=== PATIENT | male | born 1985 | race Caucasian/White ===

== ENCOUNTER → 2016-05-02 | Outpatient (CLI) | payer MEDICAID ==
[~2016-05-02] MED LIST: ATIV1TAB7 PO; PAXI20TA3 PO; PROT1TAB2 PO; PROZ10CA7 PO; RISP1TAB41 PO; TRAZ100T4 PO; TRIL1TAB PO; cogentin PO
== END ==
LOC: M OUTALCOH 08:27
PROVIDERS: ATTEND Psychiatry & Neurology Psychiatry
DX: F11.20 Opioid dependence, uncomplicated (principal); F12.10 Cannabis abuse, uncomplicated

== ENCOUNTER 2016-05-20 21:43 | Emergency (ER) | payer MEDICAID, OTHER, SELFPAY ==
[2016-05-20] MEDS ORDERED: AUGMENTIN 875 MG TAB As Ordered ONE (23:30)
[2016-05-20] MEDS ORDERED: NORCO, ANEXSIA 5/325MG TABLET (HYDROcodone/ACETAMINOPHEN) As Ordered ONE (23:30)
[2016-05-20] MEDS ORDERED: IBUPROFEN 800 MG TAB As Ordered ONE (23:31)
--- NOTE | 2016-05-20 23:40 | EDDOCDS ---
Nurse's Notes [facility] Name: Rakesh Ramírez Age: 30 yrs Sex: Male : 1985 Arrival Date: 05/20/2016 Time: 21:43 Bed TR1 Private MD: No Pcp Diagnosis: Dental caries;Fever, unspecified Presentation: 05/20 21:51 Presenting complaint: Patient states: bilateral jaw pain, more so on right, for a few jjr weeks, attempting to schedule appt with oral surgeon. Adult Sepsis Screening: The patient does not have new or worsening altered mentation. Patient's respiratory rate is less than 22. Systolic blood pressure is greater than 100. Patient has a qSOFA score of 0- Negative Sepsis Screen. Suicide/Homicide risk assessment- the patient denies having any suicidal and/or homicidal ideations and does not present with any other emotional, behavioral or mental health complaints. Status: Patient is not a food services director or dependent. Transition of care: patient was not received from another setting of care. 21:51 Acuity: NIKOS Level 4 jjr 21:51 Method Of Arrival: Walkin/Carried/Asstd jjr Triage Assessment: 21:53 General: Appears in no apparent distress. Pain: Location: right jaw and left jaw. HIV jjr screening NA for this visit Offered previously. EENT: Reports pain in right jaw and left jaw. Historical: - Allergies: no known allergies; - Home Meds: 1. Remeron 30 mg Oral tab 1 tab once daily - PMHx: Anxiety; Depression; - PSHx: none; - Social history: Smoking status: Patient uses tobacco products, current every day smoker. No barriers to communication noted, The patient speaks fluent Mohawk. - Family history: Not pertinent. - : The pt / caregiver states he / she is not on anticoagulants. Home medication list is obtained from the patient. - Exposure Risk Screening:: None identified. Screenin:37 Screening information is obtained from the patient. Fall risk: No risks identified. rw1 Assistance ADL's: requires no assistance with activities of daily living. Abuse/DV Screen: The patient / caregiver reports he/she is: not in a situation that causes fear, pain or injury. Nutritional screening: No deficits noted. Advance Directives: Currently, there is no health care proxy. home support is adequate. Assessment: 23:37 Reassessment: Patient appears in no apparent distress at this time. Patient states rw1 feeling better. Vital Signs: 21:45 BP 136 / 81; Pulse 104; Resp 18 S; Temp 100.1(O); Pulse Ox 95% ; Weight 79.38 kg (R); gr2 Height 5 ft. 10 in. (177.80 cm) (R); Pain 6/10; 23:31 BP 145 / 78; Pulse 89; Resp 18; Temp 99.0(TE); Pulse Ox 96% on R/A; Pain 6/10; kb5 21:45 Body Mass Index 25.11 (79.38 kg, 177.80 cm) gr2 Vitals: 21:45 Log In Time: May 20, 2016 at 21:45. gr2 ED Course: 21:44 Patient visited by Seng Garcia. gr2 21:44 No Pcp is Private Physician. gr2 21:44 Patient moved to Waiting gr2 21:47 Patient visited by Seng Garcia. gr2 21:47 Patient moved to Pre RCE gr2 21:53 Triage Initiated jjr 23:16 Bogdan Vidal PA is PHCP. mo1 23:16 Rafat Davison DO is Attending Physician. mo1 23:16 Patient moved to Triage 3 ko2 23:18 Patient visited by Bogdan Vidal PA. mo1 23:25 [facility] is Referral Physician. mo1 23:26 Pankaj Mosley is Referral Physician. mo1 23:32 Patient visited by Geremias Gupta PCA. kb5 23:35 Patient moved to TR1 ko2 23:37 The patient / caregiver is instructed regarding the plan of care and ED course. rw1 23:37 No IV's were initiated during this patient's visit. No procedures done that require rw1 assistance. Administered Medications: 23:23 CANCELLED (Other Intervention Used): Amoxicillin 500 mg PO once mo1 23:36 Drug: HYDROcodone-acetaminophen 1 tabs [hydrocodone 5 mg-acetaminophen 325 mg tablet (1 rw1 tabs)] Route: PO; 23:37 Follow up: Response: Pt left department before re-evaluation is appropriate rw1 23:36 Drug: Amoxicillin-Clavulanate 1 tabs [amoxicillin 875 mg-potassium clavulanate 125 mg rw1 tablet (1 tabs)] Route: PO; 23:37 Follow up: Response: Pt left department before re-evaluation is appropriate rw1 23:36 Drug: Ibuprofen 800 mg [ibuprofen 800 mg tablet (1 tabs)] Route: PO; rw1 23:36 Follow up: Response: Pt left department before re-evaluation is appropriate rw1 Order Results: There are currently no results for this order. Outcome: 23:26 Discharge ordered by Provider. mo1 23:37 Discharge Assessment: Patient awake, alert and oriented x 3. No cognitive and/or rw1 functional deficits noted. Patient verbalized understanding of disposition instructions. patient administered narcotics - yes. Pt provided with safe discharge. The following High Risk Discharge criteria are identified: None. Discharged to home ambulatory, with significant other. Condition: stable. Discharge instructions given to patient, Instructed on discharge instructions, follow up and referral plans. medication usage, no driving heavy equipment, Demonstrated understanding of instructions, medications, Pt was receptive of discharge instructions/ teaching. Prescriptions given X 2. No special radiology studies were completed. Property sent home with patient. 23:39 Patient left the ED. rw1 Signatures: Denny Fernandez,INTERNAL REVENUE SERVICE AGENT INTERNAL REVENUE SERVICE AGENT rw1 Geremias Gupta, COMMISSIONS ANALYST COMMISSIONS ANALYST kb5 Alona Garcia, RN RN Seng Abdi gr2 Bogdan Vidal PA PA mo1 Ning Johnson,RN RN ko2 MTDD
--- NOTE | 2016-05-20 23:40 | EDDOCDS ---
Physician Documentation [facility] Name: Rakesh Ramírez Age: 30 yrs Sex: Male : 1985 Arrival Date: 05/20/2016 Time: 21:43 Bed TR1 Private MD: No Pcp Disposition: 05/20/16 23:26 Discharged to Home/Self Care. Impression: Dental caries, Fever, unspecified. - Condition is Stable. - Discharge Instructions: Dental Pain. - Prescriptions for Augmentin 875- 125 mg Oral Tablet - take 1 tablet by ORAL route every 12 hours for 10 days; 20 tablet. Ibuprofen 800 mg Oral Tablet - take 1 tablet by ORAL route every 8 hours As needed take with food; 30 tablet. - Medication Reconciliation, Local Pharmacy Hours form. - [facility]; When: Call to arrange an appointment; Reason: Recheck today's complaints, Continuance of care. Follow up: [facility]; When: Call to arrange an appointment; Reason: Recheck today's complaints, Continuance of care. - Problem is new. - Symptoms are unchanged. Historical: - Allergies: no known allergies; - Home Meds: 1. Remeron 30 mg Oral tab 1 tab once daily - PMHx: Anxiety; Depression; - PSHx: none; - Social history: Smoking status: Patient uses tobacco products, current every day smoker. No barriers to communication noted, The patient speaks fluent Welsh. - Family history: Not pertinent. - : The pt / caregiver states he / she is not on anticoagulants. Home medication list is obtained from the patient. - Exposure Risk Screening:: None identified. Vital Signs: 05/20 21:45 BP 136 / 81; Pulse 104; Resp 18 S; Temp 100.1(O); Pulse Ox 95% ; Weight 79.38 kg / 175 gr2 lbs (R); Height 5 ft. 10 in. (177.80 cm) (R); Pain 6/10; 23:31 BP 145 / 78; Pulse 89; Resp 18; Temp 99.0(TE); Pulse Ox 96% on R/A; Pain 6/10; kb5 21:45 Body Mass Index 25.11 (79.38 kg, 177.80 cm) gr2 MDM: 23:23 HYDROcodone-acetaminophen 5 mg-325 mg 1 tabs PO once ordered. mo1 23:23 Amoxicillin-Clavulanate 875 mg 1 tabs PO once ordered. mo1 23:23 Ibuprofen 800 mg PO once ordered. mo1 23:38 Financial registration complete. hs2 Administered Medications: 23:23 CANCELLED (Other Intervention Used): Amoxicillin 500 mg PO once mo1 23:36 Drug: HYDROcodone-acetaminophen 1 tabs [hydrocodone 5 mg-acetaminophen 325 mg tablet (1 rw1 tabs)] Route: PO; 23:37 Follow up: Response: Pt left department before re-evaluation is appropriate rw1 23:36 Drug: Amoxicillin-Clavulanate 1 tabs [amoxicillin 875 mg-potassium clavulanate 125 mg rw1 tablet (1 tabs)] Route: PO; 23:37 Follow up: Response: Pt left department before re-evaluation is appropriate rw1 23:36 Drug: Ibuprofen 800 mg [ibuprofen 800 mg tablet (1 tabs)] Route: PO; rw1 23:36 Follow up: Response: Pt left department before re-evaluation is appropriate rw1 Signatures: Denny Fernandez LPN EXTRUDER OPERATOR HELPER rw1 Alona Garcia, RN RN shraddhajr Bogdan Vidal, PA PA mo1 Verena Rodarte, Reg Reg hs2 The chart was reviewed and I authenticate all verbal orders and agree with the evaluation and treatment provided.Corrections: (The following items were deleted from the chart) 23:23 23:23 Amoxicillin 500 mg PO once ordered. mo1 mo1 MTDD
--- NOTE | 2016-05-23 00:40 | EDDOCDS ---
Physician Documentation [facility] Name: Rakesh Ramírez Age: 30 yrs Sex: Male : 1985 Arrival Date: 05/20/2016 Time: 21:43 Bed TR1 Private MD: No Pcp Disposition: 05/20/16 23:26 Discharged to Home/Self Care. Impression: Dental caries, Fever, unspecified. - Condition is Stable. - Discharge Instructions: Dental Pain. - Prescriptions for Augmentin 875- 125 mg Oral Tablet - take 1 tablet by ORAL route every 12 hours for 10 days; 20 tablet. Ibuprofen 800 mg Oral Tablet - take 1 tablet by ORAL route every 8 hours As needed take with food; 30 tablet. - Medication Reconciliation, Local Pharmacy Hours form. - [facility]; When: Call to arrange an appointment; Reason: Recheck today's complaints, Continuance of care. Follow up: [facility]; When: Call to arrange an appointment; Reason: Recheck today's complaints, Continuance of care. - Problem is new. - Symptoms are unchanged. Historical: - Allergies: no known allergies; - Home Meds: 1. Remeron 30 mg Oral tab 1 tab once daily - PMHx: Anxiety; Depression; - PSHx: none; - Social history: Smoking status: Patient uses tobacco products, current every day smoker. No barriers to communication noted, The patient speaks fluent Mongolian. - Family history: Not pertinent. - : The pt / caregiver states he / she is not on anticoagulants. Home medication list is obtained from the patient. - Exposure Risk Screening:: None identified. Vital Signs: 05/20 21:45 BP 136 / 81; Pulse 104; Resp 18 S; Temp 100.1(O); Pulse Ox 95% ; Weight 79.38 kg / 175 gr2 lbs (R); Height 5 ft. 10 in. (177.80 cm) (R); Pain 6/10; 23:31 BP 145 / 78; Pulse 89; Resp 18; Temp 99.0(TE); Pulse Ox 96% on R/A; Pain 6/10; kb5 21:45 Body Mass Index 25.11 (79.38 kg, 177.80 cm) gr2 MDM: 23:23 HYDROcodone-acetaminophen 5 mg-325 mg 1 tabs PO once ordered. mo1 23:23 Amoxicillin-Clavulanate 875 mg 1 tabs PO once ordered. mo1 23:23 Ibuprofen 800 mg PO once ordered. mo1 23:38 Financial registration complete. hs2 05/21 01:01 [facility] Payment Agreement was scanned into [employer] and attached to record. pm4 09:43 T-Sheet-- Draft Copy was scanned into [employer] and attached to record. gb Administered Medications: 05/20 23:23 CANCELLED (Other Intervention Used): Amoxicillin 500 mg PO once mo1 23:36 Drug: HYDROcodone-acetaminophen 1 tabs [hydrocodone 5 mg-acetaminophen 325 mg tablet (1 rw1 tabs)] Route: PO; 23:37 Follow up: Response: Pt left department before re-evaluation is appropriate rw1 23:36 Drug: Amoxicillin-Clavulanate 1 tabs [amoxicillin 875 mg-potassium clavulanate 125 mg rw1 tablet (1 tabs)] Route: PO; 23:37 Follow up: Response: Pt left department before re-evaluation is appropriate rw1 23:36 Drug: Ibuprofen 800 mg [ibuprofen 800 mg tablet (1 tabs)] Route: PO; rw1 23:36 Follow up: Response: Pt left department before re-evaluation is appropriate rw1 Signatures: Reba Sharma, Reg Reg gb Denny Fernandez,SKI MAKER WOOD SKI MAKER WOOD rw1 Alona Garcia, RN RN Bogdan Urias PA PA mo1 Verena Rodarte, Reg Reg hs2 Shilo Adhikari, Reg Reg pm4 The chart was reviewed and I authenticate all verbal orders and agree with the evaluation and treatment provided.Corrections: (The following items were deleted from the chart) 23:23 23:23 Amoxicillin 500 mg PO once ordered. mo1 mo1 Attachments: 05/21 01:01 [facility] Payment Agreement pm4 09:43 T-Sheet-- Draft Copy gb Chart Complete MTDD
--- NOTE | 2016-05-23 00:40 | EDDOCDS ---
Physician Documentation [facility] Name: Rakesh Ramírez Age: 30 yrs Sex: Male : 1985 Arrival Date: 05/20/2016 Time: 21:43 Bed TR1 Private MD: No Pcp Disposition: 05/20/16 23:26 Discharged to Home/Self Care. Impression: Dental caries, Fever, unspecified. - Condition is Stable. - Discharge Instructions: Dental Pain. - Prescriptions for Augmentin 875- 125 mg Oral Tablet - take 1 tablet by ORAL route every 12 hours for 10 days; 20 tablet. Ibuprofen 800 mg Oral Tablet - take 1 tablet by ORAL route every 8 hours As needed take with food; 30 tablet. - Medication Reconciliation, Local Pharmacy Hours form. - Follow up: [facility]; When: Call to arrange an appointment; Reason: Recheck today's complaints, Continuance of care. Follow up: [facility]; When: Call to arrange an appointment; Reason: Recheck today's complaints, Continuance of care. - Problem is new. - Symptoms are unchanged. Historical: - Allergies: no known allergies; - Home Meds: 1. Remeron 30 mg Oral tab 1 tab once daily - PMHx: Anxiety; Depression; - PSHx: none; - Social history: Smoking status: Patient uses tobacco products, current every day smoker. No barriers to communication noted, The patient speaks fluent Icelandic. - Family history: Not pertinent. - : The pt / caregiver states he / she is not on anticoagulants. Home medication list is obtained from the patient. - Exposure Risk Screening:: None identified. Vital Signs: 05/20 21:45 BP 136 / 81; Pulse 104; Resp 18 S; Temp 100.1(O); Pulse Ox 95% ; Weight 79.38 kg / 175 gr2 lbs (R); Height 5 ft. 10 in. (177.80 cm) (R); Pain 6/10; 23:31 BP 145 / 78; Pulse 89; Resp 18; Temp 99.0(TE); Pulse Ox 96% on R/A; Pain 6/10; kb5 21:45 Body Mass Index 25.11 (79.38 kg, 177.80 cm) gr2 MDM: 23:23 HYDROcodone-acetaminophen 5 mg-325 mg 1 tabs PO once ordered. mo1 23:23 Amoxicillin-Clavulanate 875 mg 1 tabs PO once ordered. mo1 23:23 Ibuprofen 800 mg PO once ordered. mo1 23:38 Financial registration complete. hs2 05/21 01:01 [facility] Payment Agreement was scanned into [employer] and attached to record. pm4 09:43 T-Sheet-- Draft Copy was scanned into [employer] and attached to record. gb Administered Medications: 05/20 23:23 CANCELLED (Other Intervention Used): Amoxicillin 500 mg PO once mo1 23:36 Drug: HYDROcodone-acetaminophen 1 tabs [hydrocodone 5 mg-acetaminophen 325 mg tablet (1 rw1 tabs)] Route: PO; 23:37 Follow up: Response: Pt left department before re-evaluation is appropriate rw1 23:36 Drug: Amoxicillin-Clavulanate 1 tabs [amoxicillin 875 mg-potassium clavulanate 125 mg rw1 tablet (1 tabs)] Route: PO; 23:37 Follow up: Response: Pt left department before re-evaluation is appropriate rw1 23:36 Drug: Ibuprofen 800 mg [ibuprofen 800 mg tablet (1 tabs)] Route: PO; rw1 23:36 Follow up: Response: Pt left department before re-evaluation is appropriate rw1 Signatures: Reba Sharma, Reg Reg gb Denny Fernandez,AMMONIUM SULFATE OPERATOR AMMONIUM SULFATE OPERATOR rw1 Alona Garcia, RN RN Bogdan Urias PA PA mo1 Verena Rodarte, Reg Reg hs2 Shilo Adhikari, Reg Reg pm4 The chart was reviewed and I authenticate all verbal orders and agree with the evaluation and treatment provided.Corrections: (The following items were deleted from the chart) 23:23 23:23 Amoxicillin 500 mg PO once ordered. mo1 mo1 Attachments: 05/21 01:01 [facility] Payment Agreement pm4 09:43 T-Sheet-- Draft Copy gb Chart Complete MTDD
--- NOTE | 2016-05-23 00:40 | EDDOCDS ---
Nurse's Notes [facility] Name: Rakesh Ramírez Age: 30 yrs Sex: Male : 1985 Arrival Date: 05/20/2016 Time: 21:43 Bed TR1 Private MD: No Pcp Diagnosis: Dental caries;Fever, unspecified Presentation: 05/20 21:51 Presenting complaint: Patient states: bilateral jaw pain, more so on right, for a few jjr weeks, attempting to schedule appt with oral surgeon. Adult Sepsis Screening: The patient does not have new or worsening altered mentation. Patient's respiratory rate is less than 22. Systolic blood pressure is greater than 100. Patient has a qSOFA score of 0- Negative Sepsis Screen. Suicide/Homicide risk assessment- the patient denies having any suicidal and/or homicidal ideations and does not present with any other emotional, behavioral or mental health complaints. Status: Patient is not a dental equipment installer and servicer or dependent. Transition of care: patient was not received from another setting of care. 21:51 Acuity: NIKOS Level 4 jjr 21:51 Method Of Arrival: Walkin/Carried/Asstd jjr Triage Assessment: 21:53 General: Appears in no apparent distress. Pain: Location: right jaw and left jaw. HIV jjr screening NA for this visit Offered previously. EENT: Reports pain in right jaw and left jaw. Historical: - Allergies: no known allergies; - Home Meds: 1. Remeron 30 mg Oral tab 1 tab once daily - PMHx: Anxiety; Depression; - PSHx: none; - Social history: Smoking status: Patient uses tobacco products, current every day smoker. No barriers to communication noted, The patient speaks fluent Macedonian. - Family history: Not pertinent. - : The pt / caregiver states he / she is not on anticoagulants. Home medication list is obtained from the patient. - Exposure Risk Screening:: None identified. Screenin:37 Screening information is obtained from the patient. Fall risk: No risks identified. rw1 Assistance ADL's: requires no assistance with activities of daily living. Abuse/DV Screen: The patient / caregiver reports he/she is: not in a situation that causes fear, pain or injury. Nutritional screening: No deficits noted. Advance Directives: Currently, there is no health care proxy. home support is adequate. Assessment: 23:37 Reassessment: Patient appears in no apparent distress at this time. Patient states rw1 feeling better. Vital Signs: 21:45 BP 136 / 81; Pulse 104; Resp 18 S; Temp 100.1(O); Pulse Ox 95% ; Weight 79.38 kg (R); gr2 Height 5 ft. 10 in. (177.80 cm) (R); Pain 6/10; 23:31 BP 145 / 78; Pulse 89; Resp 18; Temp 99.0(TE); Pulse Ox 96% on R/A; Pain 6/10; kb5 21:45 Body Mass Index 25.11 (79.38 kg, 177.80 cm) gr2 Vitals: 21:45 Log In Time: May 20, 2016 at 21:45. gr2 ED Course: 21:44 Patient visited by Seng Garcia. gr2 21:44 No Pcp is Private Physician. gr2 21:44 Patient moved to Waiting gr2 21:47 Patient visited by Seng Garcia. gr2 21:47 Patient moved to Pre RCE gr2 21:53 Triage Initiated jjr 23:16 Bogdan Vidal PA is PHCP. mo1 23:16 Rafat Davison DO is Attending Physician. mo1 23:16 Patient moved to Triage 3 ko2 23:18 Patient visited by Bogdan Vidal PA. mo1 23:25 [facility] is Referral Physician. mo1 23:26 Pankaj Mosley is Referral Physician. mo1 23:32 Patient visited by Geremias Gupta PCA. kb5 23:35 Patient moved to TR1 ko2 23:37 The patient / caregiver is instructed regarding the plan of care and ED course. rw1 23:37 No IV's were initiated during this patient's visit. No procedures done that require rw1 assistance. 05/21 01:01 [facility] [place] Agreement was scanned into [employer] and attached to record. pm4 09:43 T-Sheet-- Draft Copy was scanned into [employer] and attached to record. gb Administered Medications: 05/20 23:23 CANCELLED (Other Intervention Used): Amoxicillin 500 mg PO once mo1 23:36 Drug: HYDROcodone-acetaminophen 1 tabs [hydrocodone 5 mg-acetaminophen 325 mg tablet (1 rw1 tabs)] Route: PO; 23:37 Follow up: Response: Pt left department before re-evaluation is appropriate rw1 23:36 Drug: Amoxicillin-Clavulanate 1 tabs [amoxicillin 875 mg-potassium clavulanate 125 mg rw1 tablet (1 tabs)] Route: PO; 23:37 Follow up: Response: Pt left department before re-evaluation is appropriate rw1 23:36 Drug: Ibuprofen 800 mg [ibuprofen 800 mg tablet (1 tabs)] Route: PO; rw1 23:36 Follow up: Response: Pt left department before re-evaluation is appropriate rw1 Order Results: There are currently no results for this order. Outcome: 23:26 Discharge ordered by Provider. mo1 23:37 Discharge Assessment: Patient awake, alert and oriented x 3. No cognitive and/or rw1 functional deficits noted. Patient verbalized understanding of disposition instructions. patient administered narcotics - yes. Pt provided with safe discharge. The following High Risk Discharge criteria are identified: None. Discharged to home ambulatory, with significant other. Condition: stable. Discharge instructions given to patient, Instructed on discharge instructions, follow up and referral plans. medication usage, no driving heavy equipment, Demonstrated understanding of instructions, medications, Pt was receptive of discharge instructions/ teaching. Prescriptions given X 2. No special radiology studies were completed. Property sent home with patient. 23:39 Patient left the ED. rw1 Signatures: Reba Sharma, Reg Reg gb Jim,Denny,TELEPHONE ANSWERING SERVICE OPERATOR TELEPHONE ANSWERING SERVICE OPERATOR rw1 Geremias Gupta, MADHURI FIBER OPTICS ENGINEER kb5 Alona Garcia, RN Seng López gr2 Bogdan Vidal PA PA mo1 Ning Johnson RN RN ko2 Shilo Adhikari, Reg Reg pm4 Chart Complete MTDD
== END 2016-05-20 23:39 | disposition home or self-care (01) ==
LOC: M ED 21:43
DX: K02.9 Dental caries, unspecified (principal); R68.84 Jaw pain; F41.9 Anxiety disorder, unspecified; F32.9 Major depressive disorder, single episode, unspecified; Z79.899 Other long term (current) drug therapy; F17.210 Nicotine dependence, cigarettes, uncomplicated

== ENCOUNTER 2016-06-03 13:00 | Outpatient (RCR) | payer MEDICAID | END 2016-06-04 | LOC: M OUTALCOH 13:00 | PROVIDERS: ATTEND Psychiatry & Neurology Psychiatry | DX: F11.20 Opioid dependence, uncomplicated (principal); F12.10 Cannabis abuse, uncomplicated; F17.200 Nicotine dependence, unspecified, uncomplicated ==

== ENCOUNTER 2016-07-03 15:00 | Outpatient (RCR) | payer MEDICAID, SELFPAY | END 2016-07-05 | LOC: M OUTALCOH 15:00 | PROVIDERS: ATTEND Psychiatry & Neurology Psychiatry | DX: F12.10 Cannabis abuse, uncomplicated (principal); F11.20 Opioid dependence, uncomplicated; F17.200 Nicotine dependence, unspecified, uncomplicated ==

== ENCOUNTER 2016-08-02 13:00 | Outpatient (RCR) | payer MEDICAID, SELFPAY | END 2016-08-04 | LOC: M OUTALCOH 13:00 | PROVIDERS: ATTEND Psychiatry & Neurology Psychiatry | DX: F17.200 Nicotine dependence, unspecified, uncomplicated (principal); F11.20 Opioid dependence, uncomplicated; F12.10 Cannabis abuse, uncomplicated ==

== ENCOUNTER 2016-08-20 09:00 | Outpatient (RCR) | payer MEDICAID, SELFPAY | END 2016-09-04 | LOC: M OUTALCOH 09:00 | PROVIDERS: ATTEND Psychiatry & Neurology Psychiatry | DX: F17.200 Nicotine dependence, unspecified, uncomplicated (principal); F11.20 Opioid dependence, uncomplicated; F12.10 Cannabis abuse, uncomplicated ==

== ENCOUNTER 2016-09-06 09:11 | Observation (INO) | payer MEDICAID, OTHER ==
[~2016-09-06] VITALS: Ht 162.6 cm; Wt 69.0 kg
[2016-09-06] MEDS ORDERED: HALOPERIDOL 5 MG/ML VIAL (J1630) As Ordered ONE (09:23)
[2016-09-06] MEDS ORDERED: LORazepam 2 MG/ML VIAL (J2060) IM STA (09:23)
[2016-09-06] MEDS ORDERED: LORazepam 2 MG/ML VIAL (J2060) As Ordered ONE (09:24)
--- NOTE | 2016-09-06 10:00 | REP ---
CT Head without contrast HISTORY: Altered mental status COMPARISON: 06/15/2015 There is no intraparenchymal hemorrhage, acute infarct, mass or midline shift. The ventricular system is normal in appearance. There is no extra cerebral collection. There is no fracture. The visualized sinuses are clear. IMPRESSION: There is no intracranial lesion. Signed by Iban Nice MD 09/06/2016 09:51 A
[2016-09-06 10:05] LABS: BASO % 0.3 % (0.0-1.0); EOS # 0.2 K/mm3 (0.0-0.50); EOS % 1.4 % (0.0-3.0); LARGE UNSTAINED CELL # 0.4 K/mm3 (0.0-0.4); LARGE UNSTAINED CELL % 3.3 % (0.0-4.0); LYMPH # 2.6 K/mm3 (1.5-4.5); LYMPH % 21.5 % (24.0-44.0); MEAN CORPUSCULAR VOLUME 91.2 fl (80.0-96.0); MONO # 0.9 K/mm3 (0.0-0.8); MONO % 7.9 % (0.0-5.0); NEUTROPHILS # 7.8 K/mm3 (1.8-7.7); NEUTROPHILS % 65.8 % (36.0-66.0); PLATELET COUNT, AUTOMATED 272 k/mm3 (150-450); RED CELL DISTRIBUTION WIDTH 12.6 % (11.5-14.5); WHITE BLOOD COUNT 11.9 K/mm3 (4.0-10.0)
[2016-09-06 10:34] LABS: ALBUMIN 3.9 GM/DL (3.2-5.2); ALBUMIN/GLOBULIN RATIO 1.18 (1.00-1.93); ALKALINE PHOSPHATASE 70 U/L (45-117); ALT/SGPT 86 U/L (12-78); ANION GAP 18 MEQ/L (8-16); BILIRUBIN,DIRECT 0.2 MG/DL (0.0-0.2); BILIRUBIN,TOTAL 0.5 MG/DL (0.2-1.0); BLOOD UREA NITROGEN 8 MG/DL (7-18); CALCIUM LEVEL 9.5 MG/DL (8.5-10.1); CARBON DIOXIDE LEVEL 24 MEQ/L (21-32); CHLORIDE LEVEL 95 MEQ/L (98-107); CREATININE FOR GFR 1.36 MG/DL (0.70-1.30); GLOMERULAR FILTRATION RATE > 60.0 (>60); GLUCOSE, FASTING 119 MG/DL (70-105); POTASSIUM SERUM 3.4 MEQ/L (3.5-5.1); SODIUM LEVEL 137 MEQ/L (136-145); TOTAL PROTEIN 7.2 GM/DL (6.4-8.2)
[2016-09-06] MEDS ORDERED: LORazepam 2 MG/ML VIAL (J2060) IV STA (10:56)
[2016-09-06] MEDS ORDERED: NS 1,000 ML IV ONE (11:00)
[2016-09-06 11:18] LABS: AST/SGOT 32 U/L (15-37)
[2016-09-06] MEDS ORDERED: POTASSIUM CHLORIDE 10 MEQ SR TABLET PO ONE (13:00)
[2016-09-06 13:03] LABS: VENOUS BASE EXCESS 2.6 (-2.0-2.0); VENOUS O2 SATURATION 97.5 % (60.0-80.0); VENOUS PARTIAL PRESSURE CO2 46.4 mmHg (38.0-50.0); VENOUS PARTIAL PRESSURE O2 < 10.0 mmHg (30.0-50.0); VENOUS STANDARD HCO3 26.8 MEQ/L; VENOUS TOTAL CO2 29.5 MEQ/L (24.0-28.0)
[2016-09-06] MEDS ORDERED: LIDOCAINE W/EPINEPHRINE 1% 20ML VIAL SC ONE (13:30)
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
[2016-09-06] MEDS: NS 1,000 ML IV SCH ×2 (15:41→17:49)
[2016-09-06] MEDS: LACTULOSE 20 GM/30 ML SYRUP UD PO SCH ×2 (16:32→21:55)
[2016-09-06 17:30] VITALS: BP 114/64
--- NOTE | 2016-09-06 19:25 | REP ---
MR BRAIN WITHOUT CONTRAST: HISTORY: Seizure. COMPARISON: CT 09/06/2016. There are no areas of abnormal signal intensity in the brain. There is no intraparenchymal hemorrhage, infarct mass, or midline shift. The ventricular system is normal in appearance. There is no extracerebral collection. Mucosal thickening is present in the ethmoid sinuses. A retention cyst is present in the left maxillary sinus. IMPRESSION: There is no intracranial lesion. Signed by Iban Nice MD 09/06/2016 07:27 P
[2016-09-06 20:00] VITALS: BP 114/55
[2016-09-06] MEDS: IBUPROFEN 400 MG TAB PO PRN (21:55)
[2016-09-06 23:59] VITALS: BP 118/57
[2016-09-07] MEDS: NS 1,000 ML IV SCH ×4 (01:25→20:59)
[2016-09-07] MEDS: LORazepam 2 MG/ML VIAL (J2060) IV PRN ×6 (01:43→20:59)
[2016-09-07 04:00] VITALS: BP 106/61
[2016-09-07] MEDS: LACTULOSE 20 GM/30 ML SYRUP UD PO SCH ×3 (04:14→17:08)
[2016-09-07 04:19] LABS: BASO % 0.3 % (0.0-1.0); EOS # 0.2 K/mm3 (0.0-0.50); EOS % 2.4 % (0.0-3.0); LARGE UNSTAINED CELL # 0.4 K/mm3 (0.0-0.4); LARGE UNSTAINED CELL % 3.7 % (0.0-4.0); LYMPH # 2.7 K/mm3 (1.5-4.5); LYMPH % 28.7 % (24.0-44.0); MEAN CORPUSCULAR HGB CONC 33.6 g/dl (32.0-36.5); MEAN CORPUSCULAR VOLUME 92.5 fl (80.0-96.0); MONO # 0.8 K/mm3 (0.0-0.8); MONO % 8.2 % (0.0-5.0); NEUTROPHILS # 5.4 K/mm3 (1.8-7.7); NEUTROPHILS % 56.7 % (36.0-66.0); PLATELET COUNT, AUTOMATED 229 k/mm3 (150-450); RED CELL DISTRIBUTION WIDTH 12.9 % (11.5-14.5); WHITE BLOOD COUNT 9.5 K/mm3 (4.0-10.0)
[2016-09-07 04:36] LABS: BLOOD UREA NITROGEN 4 MG/DL (7-18); CREATININE FOR GFR 0.76 MG/DL (0.70-1.30); GLUCOSE, FASTING 91 MG/DL (70-105)
[2016-09-07 04:37] LABS: ALBUMIN 2.9 GM/DL (3.2-5.2); ALKALINE PHOSPHATASE 57 U/L (45-117); ALT/SGPT 68 U/L (12-78); ANION GAP 4 MEQ/L (8-16); AST/SGOT 28 U/L (15-37); BILIRUBIN,TOTAL 0.5 MG/DL (0.2-1.0); CALCIUM LEVEL 8.1 MG/DL (8.5-10.1); CARBON DIOXIDE LEVEL 30 MEQ/L (21-32); CHLORIDE LEVEL 107 MEQ/L (98-107); GLOMERULAR FILTRATION RATE > 60.0 (>60); POTASSIUM SERUM 4.2 MEQ/L (3.5-5.1); SODIUM LEVEL 141 MEQ/L (136-145); TOTAL PROTEIN 5.8 GM/DL (6.4-8.2)
--- NOTE | 2016-09-07 07:25 | ECGEPIP ---
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
[2016-09-07 08:00] VITALS: BP 114/51
[2016-09-07] MEDS: IBUPROFEN 400 MG TAB PO PRN ×2 (08:06→15:58)
[2016-09-07] MEDS: MAGIC MOUTHWASH SUSPENSION BTL SS SCH ×4 (09:00→20:59)
--- NOTE | 2016-09-07 11:48 | IPNPDOC ---
Text Note Date of Service The patient was seen on 09/07/16. NOTE Subjective: States he has dry mouth and agitation from withdrawal. PHYSICAL EXAMINATION: Vitals: (see below) General: No acute distress, laying comfortably in bed. HEENT: Moist mucous membranes. 1 inch laceration left eyebrow. Bruise on left lip/chin. Tongue trauma with some swelling, no active bleeding. Airway patent. Neck: No JVD or lymphadenopathy Cardiac: RRR, No murmurs Pulm: Clear to auscultation b/l. No wheezing, rhonchi Abd: NT/ND + BS Ext: No edema or cyanosis Neuro: AAO to person and place,year. Strength 5/5 BUE and BLE. CN 2-12 intact. Negative pronator drift. Negative Babinki. LABORATORY DATA: See below. IMAGING: CT head on 09/06/16 negative for acute pathology. MICROBIOLOGY: Please see below. ASSESSMENT/PLAN: 1. Drug-induced seizure- resolved. Status post Ativan IV. With associated lactic acidosis which has resolved. On IV fluids. Neuro checks every 4 hours. No antiepileptic agents as is the patient's first seizure was likely secondary to illicit drugs. Continue to monitor the patient under telemetry. MRI brain/ EEG. 2. Tongue trauma from seizure - mild swelling. Airway patent. 3. ? Suicidal ideations- psychiatric evaluation after observation for the above seizure and medically stabilized. 4. Polysubstance abuse- counseled on cessation. We'll monitor for withdrawal. Magic mouthwash. 5. Depression/anxiety- not on any medications at home. We'll defer to psychiatry. 6. H/o hepatitis C - will need outpt f/u. 7. Sinus bradycardia - while patient was sleeping after ativan. Asymptomatic. Cont to monitor. DVT prophylaxis- enoxaparin VS,Fishbone, I+O VS, Fishbone, I+O Laboratory Tests 09/07/16 04:00 Red Blood Count 4.20 L, Mean Corpuscular Volume 92.5, Mean Corpuscular Hemoglobin 31.0, Mean Corpuscular Hemoglobin Concent 33.6, Red Cell Distribution Width 12.9, Neutrophils (%) (Auto) 56.7, Lymphocytes (%) (Auto) 28.7, Monocytes (%) (Auto) 8.2 H, Eosinophils (%) (Auto) 2.4, Basophils (%) ( Auto) 0.3, Neutrophils # (Auto) 5.4, Lymphocytes # (Auto) 2.7, Monocytes # (Auto ) 0.8, Eosinophils # (Auto) 0.2, Basophils # (Auto) 0.0, Calcium Level 8.1 L, Aspartate Amino Transf (AST/SGOT) 28, Alanine Aminotransferase (ALT/SGPT) 68, Total Creatine Kinase 154, Alkaline Phosphatase 57, Total Bilirubin 0.5, Total Protein 5.8 L, Albumin 2.9 #L Vital Signs Date Time Temp Pulse Resp B/P (MAP) Pulse Ox O2 Delivery O2 Flow Rate FiO2 09/07/16 08:00 98.8 59 18 114/51 (72) 100 Room Air I&O- Last 24 Hours up to 6 AM 09/07/16 06:00 Intake Total 2875 ml Output Total 800 ml Balance 2075 ml YUKI SIMS MD Sep 07, 2016 11:48
[2016-09-07 12:00] VITALS: BP 130/68
[2016-09-07] MEDS ORDERED: LORazepam 2 MG/ML VIAL (J2060) As Ordered ONE ×2 (13:22→15:55)
[2016-09-07 16:00] VITALS: BP 140/74
[2016-09-07 16:28] LABS: ALBUMIN 3.1 GM/DL (3.2-5.2); ALBUMIN/GLOBULIN RATIO 1.19 (1.00-1.93); ALKALINE PHOSPHATASE 67 U/L (45-117); ALT/SGPT 68 U/L (12-78); ANION GAP 6 MEQ/L (8-16); AST/SGOT 26 U/L (15-37); BILIRUBIN,TOTAL 0.6 MG/DL (0.2-1.0); BLOOD UREA NITROGEN 4 MG/DL (7-18); CALCIUM LEVEL 8.5 MG/DL (8.5-10.1); CARBON DIOXIDE LEVEL 27 MEQ/L (21-32); CHLORIDE LEVEL 106 MEQ/L (98-107); CREATININE FOR GFR 0.65 MG/DL (0.70-1.30); GLOMERULAR FILTRATION RATE > 60.0 (>60); GLUCOSE, FASTING 116 MG/DL (70-105); SODIUM LEVEL 139 MEQ/L (136-145); TOTAL PROTEIN 5.7 GM/DL (6.4-8.2)
[2016-09-07] MEDS ORDERED: METHADONE 10 MG TAB (S0109) PO ONE (16:30)
[2016-09-07 20:00] VITALS: BP 122/69; PULSE 42
[2016-09-07 23:59] VITALS: BP 141/71
[2016-09-08] VITALS: PULSE 60
[2016-09-08] MEDS: MAGIC MOUTHWASH SUSPENSION BTL SS SCH ×4 (01:00→13:00)
[2016-09-08] MEDS: LACTULOSE 20 GM/30 ML SYRUP UD PO SCH ×3 (01:03→11:42)
[2016-09-08] MEDS: LORazepam 2 MG/ML VIAL (J2060) IV PRN ×5 (03:23→14:06)
[2016-09-08] MEDS: NS 1,000 ML IV SCH ×2 (03:24→11:42)
[2016-09-08 04:00] VITALS: BP 142/75; PULSE 59
[2016-09-08 05:30] LABS: BASO % 0.3 % (0.0-1.0); EOS # 0.2 K/mm3 (0.0-0.50); EOS % 2.4 % (0.0-3.0); LARGE UNSTAINED CELL # 0.3 K/mm3 (0.0-0.4); LARGE UNSTAINED CELL % 3.4 % (0.0-4.0); LYMPH # 2.9 K/mm3 (1.5-4.5); LYMPH % 32.2 % (24.0-44.0); MEAN CORPUSCULAR HEMOGLOBIN 31.2 pg (27.0-33.0); MEAN CORPUSCULAR HGB CONC 33.9 g/dl (32.0-36.5); MONO # 0.6 K/mm3 (0.0-0.8); MONO % 7.2 % (0.0-5.0); NEUTROPHILS # 4.5 K/mm3 (1.8-7.7); NEUTROPHILS % 54.5 % (36.0-66.0); PLATELET COUNT, AUTOMATED 227 k/mm3 (150-450); WHITE BLOOD COUNT 8.2 K/mm3 (4.0-10.0)
[2016-09-08 05:40] LABS: ALBUMIN 2.8 GM/DL (3.2-5.2); ALKALINE PHOSPHATASE 58 U/L (45-117); ALT/SGPT 62 U/L (12-78); ANION GAP 7 MEQ/L (8-16); AST/SGOT 25 U/L (15-37); BILIRUBIN,TOTAL 0.4 MG/DL (0.2-1.0); BLOOD UREA NITROGEN 4 MG/DL (7-18); CALCIUM LEVEL 8.2 MG/DL (8.5-10.1); CARBON DIOXIDE LEVEL 25 MEQ/L (21-32); CHLORIDE LEVEL 107 MEQ/L (98-107); GLOMERULAR FILTRATION RATE > 60.0 (>60); GLUCOSE, FASTING 100 MG/DL (70-105); POTASSIUM SERUM 3.7 MEQ/L (3.5-5.1); SODIUM LEVEL 139 MEQ/L (136-145); TOTAL PROTEIN 5.9 GM/DL (6.4-8.2)
[2016-09-08 08:00] VITALS: BP 107/58
--- NOTE | 2016-09-08 08:59 | REP ---
Abdominal right upper quadrant ultrasound: There is no cholelithiasis. There is biliary sludge in the gallbladder. There is no gallbladder wall thickening or pericholecystic fluid. There is no intrahepatic or extrahepatic biliary duct dilatation, the common duct is a 3.7 millimeters in diameter. The hepatic parenchyma is homogeneous and unremarkable. The visualized portion of the pancreatic head is unremarkable. Body and tail of the pancreas are obscured by bowel. There is no right renal hydronephrosis, calculus, mass or cyst. The right kidney measures 12.0 cm length at which is normal. Impression: Essentially negative abdominal right upper quadrant ultrasound. Signed by Graham Valentin MD 09/08/2016 08:51 A
[2016-09-08] MEDS: IBUPROFEN 400 MG TAB PO PRN (09:16)
--- NOTE | 2016-09-08 10:08 | REP ---
KUB, ONE VIEW: HISTORY: Fever. Air is present in small and large intestine. There are no air-fluid levels or dilated loops of intestine. There is no pneumoperitoneum. IMPRESSION: Nonspecific bowel gas pattern. Signed by Iban Nice MD 09/08/2016 10:10 A
[2016-09-08 12:00] VITALS: BP 135/76
[2016-09-08] MEDS ORDERED: hydrOXYzine 10 MG TAB PO PRN (13:15)
[2016-09-08] MEDS ORDERED: HALOPERIDOL 5 MG/ML VIAL (J1630) IM ONE (13:15)
[2016-09-08] MEDS: LORazepam 2 MG/ML VIAL (J2060) IV ONE ×2 (14:00→14:13)
--- NOTE | 2016-09-08 16:37 | ECGEPIP ---
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
--- NOTE | 2016-09-08 20:26 | DS.PDOC ---
Discharge Summary General Date of Admission Sep 06, 2016 at 12:29 Date of Discharge 09/08/16 Attending Physician: YUKI SIMS MD Specialist/Consultants Involve: Veronica Banuelos Discharge Summary PROCEDURES PERFORMED DURING STAY: None. ADMITTING/DISCHARGE DIAGNOSES: 1. Drug-induced seizure 2. Tongue trauma from seizure 3. ? Suicidal ideations - cleared by psychiatry 4. Acute Polysubstance abuse, counseled on cessation 5. H/o Depression/anxiety 6. H/o Hep C 7. Sinus Bradycardia, asymptomatic. 8. Elevated Ammonia likely 2/2 narcotics/seizure - improving. COMPLICATIONS/CHIEF COMPLAINT: Mhe/Suture Removal. HISTORY OF PRESENT ILLNESS/HOSPITAL COURSE: . This is a 30-year-old male who has a history of hepatitis C, polysubstance abuse , depression, anxiety presents to the emergency department requesting admission to the inpatient mental health unit for detox, and noted by Dr. Rahman to have suicidal ideations. While awaiting admission to the inpatient mental health unit, patient had a tonic-clonic seizure in the ED with associated tongue trauma. This was the patient's first seizure. Dr. Rahman had spoken to Dr. Rodriguez, who recommended no AED a this time. Dr. Rahman had given the patient's the benzodiazepines with cessation of the seizure. Patient had no other recurrent seizures. During the course of the hospital visit, patient was monitored closely on telemetry and was found to be in sinus bradycardia while sleeping. Patient was asymptomatic. Patient was also worked up for seizure with MRI of the brain which was negative. Patient also had an EEG scheduled, however did not want to wait until it was done. The patient stated that he would like to leave AGAINST MEDICAL ADVICE, and I have called Dr. Mora to evaluate the patient, as there was concern that the patient may need inpatient mental health unit admission. Dr. Mora has evaluated the patient and believes the patient does not meet criteria for inpatient mental health admission as he is not suicidal at this time. I have discussed risks and benefits of leaving AMA including recurrent seizures , respiratory depression, worsening bradycardia, as well as . Patient's was alert and oriented 3 with good insight and an adequate judgment, and verbalized understanding that he was admitted for the seizure activity, and would like to leave AMA while accepting the risks. Patient is advised to not drive or use any heavy machinery until evaluated by a neurologist. Patient advised to returned to the ED if symptoms recur. Patient will need to follow-up with his primary care physician soon as possible. DISCHARGE MEDICATIONS: Please see below. ALLERGIES: Please see below. PHYSICAL EXAMINATION ON DISCHARGE: Vitals: (see below) General: No acute distress, laying comfortably in bed. HEENT: Moist mucous membranes. 1 inch laceration left eyebrow, sutured by Dr. Rahman - not bleeding.. Bruise on left lip/chin. Tongue trauma with swelling significantly improved, no active bleeding. Airway patent. Neck: No JVD or lymphadenopathy Cardiac: RRR, No murmurs Pulm: Clear to auscultation b/l. No wheezing, rhonchi Abd: NT/ND + BS Ext: No edema or cyanosis Neuro: AAOx3 Strength 5/5 BUE and BLE. CN 2-12 intact. Negative pronator drift. Negative Babinki. Not suicidal LABORATORY DATA: Please see below. IMAGING: CT head on 09/06/16 negative for acute pathology. Abd U/S 09/07/16 Impression: Essentially negative abdominal right upper quadrant ultrasound. MRI brain 09/06/16 IMPRESSION:There is no intracranial lesion. EEG/CXR Pending - pt left before obtaining it. PROGNOSIS: Fair ACTIVITY: As tolerated. DIET: As tolerated DISCHARGE PLAN/DISPOSITION: 01 Home, Self-Care. Left AMA DISCHARGE INSTRUCTIONS: 1. F/u with PCP who will need to refer you to a neurologist given recent seizure. No driving or operating heavy machinery until evaluated by a neurologist. DISCHARGE CONDITION: Stable. TIME SPENT ON DISCHARGE: Greater than 30 minutes. Vital Signs/I&Os Vital Signs Date Time Temp Pulse Resp B/P (MAP) Pulse Ox O2 Delivery O2 Flow Rate FiO2 09/08/16 12:00 99.1 73 18 135/76 (95) 98 Room Air I&O- Last 24 Hours up to 6 AM 09/08/16 06:00 Intake Total 3000 ml Output Total 500 ml Balance 2500 ml Laboratory Data Labs 24H Laboratory Tests 2 09/08/16 04:59: White Blood Count 8.2, Red Blood Count 4.07L, Hemoglobin 12.7L, Hematocrit 37.4L , Mean Corpuscular Volume 92.0, Mean Corpuscular Hemoglobin 31.2, Mean Corpuscular Hemoglobin Concent 33.9, Red Cell Distribution Width 13.0, Platelet Count 227, Neutrophils (%) (Auto) 54.5, Lymphocytes (%) (Auto) 32.2, Monocytes ( %) (Auto) 7.2H, Eosinophils (%) (Auto) 2.4, Basophils (%) (Auto) 0.3, Neutrophils # (Auto) 4.5, Lymphocytes # (Auto) 2.9, Monocytes # (Auto) 0.6, Eosinophils # (Auto) 0.2, Basophils # (Auto) 0.0, Large Unclassified Cells % 3.4 , Large Unclassified Cells # 0.3, Anion Gap 7L, Glomerular Filtration Rate > 60.0, Blood Urea Nitrogen 4L, Creatinine 0.70, Sodium Level 139, Potassium Level 3.7, Chloride Level 107, Carbon Dioxide Level 25, Calcium Level 8.2L, Aspartate Amino Transf (AST/SGOT) 25, Alanine Aminotransferase (ALT/SGPT) 62, Alkaline Phosphatase 58, Total Bilirubin 0.4, Total Protein 5.9L, Albumin 2.8L, Albumin/Globulin Ratio 0.90L 09/08/16 08:18: Ammonia 33H CBC/BMP Laboratory Tests 09/08/16 04:59 Red Blood Count 4.07 L, Mean Corpuscular Volume 92.0, Mean Corpuscular Hemoglobin 31.2, Mean Corpuscular Hemoglobin Concent 33.9, Red Cell Distribution Width 13.0, Neutrophils (%) (Auto) 54.5, Lymphocytes (%) (Auto) 32.2, Monocytes (%) (Auto) 7.2 H, Eosinophils (%) (Auto) 2.4, Basophils (%) ( Auto) 0.3, Neutrophils # (Auto) 4.5, Lymphocytes # (Auto) 2.9, Monocytes # (Auto ) 0.6, Eosinophils # (Auto) 0.2, Basophils # (Auto) 0.0, Calcium Level 8.2 L, Aspartate Amino Transf (AST/SGOT) 25, Alanine Aminotransferase (ALT/SGPT) 62, Alkaline Phosphatase 58, Total Bilirubin 0.4, Total Protein 5.9 L, Albumin 2.8 L Discharge Medications No Active Prescriptions or Reported Meds Allergies Coded Allergies: No Known Allergies (Unverified , 03/09/15) YUKI SIMS MD Sep 08, 2016 20:26
--- NOTE | 2016-09-09 05:49 | CR ---
DATE OF CONSULTATION: 09/08/2016 HISTORY OF PRESENT ILLNESS: This is a 29-year-old white man who was admitted to the medical service as he had what appeared to be first-onset generalized seizure seeing that he had presented to the emergency room for mental health evaluation and the records indicate that he had some suicidal ideations. However, due to the seizure, he ended up being admitted to the medical service. Today he has been pretty agitated and he has been requesting to go home. He had been using a lot of drugs prior to admission, including cocaine and heroin. He insists that he does not remember ever saying that he was suicidal, and he said he came to the hospital because he was not feeling well, but he says that now he is feeling good, and he feels that he wants to be discharged. He says that he is staying with a friend who is very supportive of him, and he says this friend does not even use drugs. He is telling me that he is not going to be using drugs anymore. I did discuss with the patient that he does have a pretty severe history of substance abuse. The patient was denying that he was suicidal. He is minimizing how much drugs he was using as the admission notes indicate that he had not been home for the past two days when he was doing drugs to include heroin intravenous (IV) 1-2 bundles every three days. He has a history of chronic cannabis abuse. He denied any regular drinking of alcohol. This patient does have a history of prior psychiatric hospitalization at [facility] in February 2015. At that time, he was complaining of feeling depressed and having suicidal thoughts. The patient was diagnosed with major depressive disorder and generalized anxiety disorder, and he was discharged on Paxil 20 mg and the patient admits he has not taken medications a long time. He insists that he is not feeling depressed at this point. PAST PSYCHIATRIC HISTORY: This is pretty much as noted above. There does not seem to be a history of any suicidal attempts. FAMILY HISTORY: Negative. SUBSTANCE ABUSE HISTORY: This is pretty much as noted above. He has no insight as to the severity of his substance abuse. MEDICAL HISTORY: Status post first-onset seizure. MENTAL STATUS EXAMINATION: The patient is alert and oriented times three. Eye contact is fair. Psychomotor activity is normal. There is no formal thought disorder. He says that his mood is good and affect is appropriate. He is not psychotic. Denies suicidal or homicidal ideations. Concentration is fair. Memory intact. Insight and judgment good. DIAGNOSES: 1.Opioid use disorder, severe. 2. Stimulant use disorder (cocaine), severe. 3. History of depression. RECOMMENDATIONS: At this point, the patient is denying that he was suicidal. He says he cannot remember having voiced suicidal ideation and that he came to the hospital because he was not feeling well and he ended up having a seizure. He really is denying any mood symptoms and has no complaints and wants to go home. I suspect that probably he is having withdrawal from his drug abuse, and I did recommend to the patient that he consider at least pursuing treatment either at [facility] and/or [facility]. ELIAS
[2016-09-17 00:06] LABS: 7-Aminoclonazepam Negative (.); Alprazolam Negative (.); Cannabidiol Negative (.); Chlordiazepoxide Negative (.); Clonazepam Negative (.); Diazepam Negative (.); Lorazepam 30.4 ng/mL (.); Midazolam Negative (.); Temazepam Negative (.); Triazolam Negative (.)
== END 2016-09-08 15:15 | disposition home or self-care (01) ==
LOC: M ED 12:28 → M ED INP 12:29 → M PCU 17:30
PROVIDERS: ADMIT Internal Medicine; ATTEND Internal Medicine
DX: G40.509 Epileptic seizures related to external causes, not intractable, without status epilepticus (principal); F14.10 Cocaine abuse, uncomplicated; F11.10 Opioid abuse, uncomplicated; F12.10 Cannabis abuse, uncomplicated; S01.112A Laceration without foreign body of left eyelid and periocular area, initial encounter; S00.502A Unspecified superficial injury of oral cavity, initial encounter; R45.851 Suicidal ideations; W19.XXXA Unspecified fall, initial encounter; Y92.232 Corridor of hospital as the place of occurrence of the external cause; Y93.01 Activity, walking, marching and hiking; Y99.8 Other external cause status; F32.9 Major depressive disorder, single episode, unspecified; F41.9 Anxiety disorder, unspecified; Z86.19 Personal history of other infectious and parasitic diseases; R00.1 Bradycardia, unspecified; E72.20 Disorder of urea cycle metabolism, unspecified

== ENCOUNTER 2016-09-18 13:47 | Inpatient (IN) | payer OTHER ==
[~2016-09-18] VITALS: Ht 177.8 cm; Wt 65.2 kg
[2016-09-18 15:15] LABS: BASO % 0.2 % (0.0-1.0); EOS # 0.1 K/mm3 (0.0-0.50); EOS % 0.6 % (0.0-3.0); LARGE UNSTAINED CELL # 0.2 K/mm3 (0.0-0.4); LARGE UNSTAINED CELL % 0.9 % (0.0-4.0); LYMPH # 2.3 K/mm3 (1.5-4.5); LYMPH % 11.6 % (24.0-44.0); MEAN CORPUSCULAR HEMOGLOBIN 30.7 pg (27.0-33.0); MEAN CORPUSCULAR HGB CONC 33.5 g/dl (32.0-36.5); MEAN CORPUSCULAR VOLUME 91.8 fl (80.0-96.0); MONO # 0.7 K/mm3 (0.0-0.8); MONO % 3.9 % (0.0-5.0); NEUTROPHILS # 15.5 K/mm3 (1.8-7.7); NEUTROPHILS % 82.8 % (36.0-66.0); PLATELET COUNT, AUTOMATED 382 k/mm3 (150-450); RED CELL DISTRIBUTION WIDTH 13.5 % (11.5-14.5); WHITE BLOOD COUNT 18.7 K/mm3 (4.0-10.0)
[2016-09-18] MEDS ORDERED: ONDANSETRON 4MG/2ML VIAL (J2405) IV ONE (15:15)
[2016-09-18] MEDS ORDERED: NS 1,000 ML IV ONE (15:15)
[2016-09-18 15:26] LABS: ALBUMIN 3.9 GM/DL (3.2-5.2); ALBUMIN/GLOBULIN RATIO 1.26 (1.00-1.93); ALKALINE PHOSPHATASE 75 U/L (45-117); ALT/SGPT 61 U/L (12-78); ANION GAP 9 MEQ/L (8-16); AST/SGOT 22 U/L (15-37); BILIRUBIN,DIRECT 0.1 MG/DL (0.0-0.2); BILIRUBIN,TOTAL 0.5 MG/DL (0.2-1.0); BLOOD UREA NITROGEN 10 MG/DL (7-18); CALCIUM LEVEL 9.4 MG/DL (8.5-10.1); CARBON DIOXIDE LEVEL 30 MEQ/L (21-32); CHLORIDE LEVEL 97 MEQ/L (98-107); CREATININE FOR GFR 0.85 MG/DL (0.70-1.30); GLOMERULAR FILTRATION RATE > 60.0 (>60); GLUCOSE, FASTING 113 MG/DL (70-105); POTASSIUM SERUM 3.9 MEQ/L (3.5-5.1); SODIUM LEVEL 136 MEQ/L (136-145)
--- NOTE | 2016-09-18 15:35 | REP ---
CHEST, PORTABLE, SINGLE VIEW: There is no evidence of acute infiltrate. No pleural effusion is seen. The heart is normal in size. The mediastinal silhouette is unremarkable. The visualized osseous structures are intact. IMPRESSION: No acute pulmonary disease. Signed by Graham Salomon MD 09/18/2016 07:48 P
--- NOTE | 2016-09-18 15:38 | REP ---
CT Head without contrast HISTORY: Trauma COMPARISON: 09/06/2016 There is no intraparenchymal hemorrhage, acute infarct, mass or midline shift. The ventricular system is normal in appearance. There is no extra cerebral collection. There is no fracture. The visualized sinuses are clear. IMPRESSION: There is no intracranial lesion. Signed by Iban Nice MD 09/18/2016 03:30 P
[2016-09-18 15:52] LABS: OSMOLALITY SERUM 286 MOSM/KG (275-295)
[2016-09-18 16:23] LABS: METHADONE URINE NEGATIVE (NEGATIVE)
[2016-09-18] MEDS ORDERED: GI COCKTAIL 50ML BTL(HYOSCYAMINE/MAALOX/LIDOCAINE VISCOUS)(1:3:1) PO ONE (17:45)
[2016-09-18] MEDS ORDERED: METHADONE 10 MG TAB (S0109) PO ONE (19:15)
[2016-09-18] MEDS ORDERED: MULTIVITAMIN -ADULT INJECTION 10 ML, THIAMINE INJection 100 MG, FOLIC ACID 1 MG in NS 1... IV ONE (21:00)
--- NOTE | 2016-09-18 21:41 | HPE ---
DATE OF ADMISSION: 09/18/2016 CHIEF COMPLAINT: Seizure. PRIMARY CARE PROVIDER: None. HISTORY OF PRESENT ILLNESS: This is a 30-year-old male patient with underlying medical history of recently diagnosed hepatitis C, anxiety, depression, polysubstance abuse. The patient was previously admitted on 09/06/2016 for seizure secondary to drug abuse. The patient left against medical advice. Today, the patient was initially found on the lawn by the patient's neighbor. After a second time, the patient was incontinent with tongue biting, suspected seizure. After a second time, it has occurred this morning. The neighbor called the ambulance and subsequently brought the patient in. The patient stated that he has been very depressed recently. His father has and has left him with a large sum of money and the patient has been taking a lot of drugs and has had thoughts of ending his life with drugs. Last used cocaine yesterday and heroin two days ago. Also used marijuana, diazepam and drinks alcoholic beverages on occasions. Smokes half of a pack to one pack of cigarettes daily for the past six years. The patient was tearful on presentation and asked for help with thoughts of hurting himself and harming himself with IV drug use and thoughts of committing suicide with IV drug use. The patient denies any chest pain, pressure or discomfort. Does report back pain. Reported feeling anxious. Denies any fever or chills, headache, vision change, neck stiffness. ALLERGIES: No known drug allergies reported. PAST MEDICAL HISTORY: 1. Hepatitis C. 2. Anxiety. 3. Depression. 4. Polysubstance abuse. PAST SURGICAL HISTORY: None. SOCIAL HISTORY: The patient uses cocaine, IV drug use with heroin, cocaine, marijuana, smoking a half of a pack per day for 6 years, alcohol occasionally, benzodiazepine. Lives alone. FAMILY HISTORY: Father with cirrhosis. HOME MEDICATIONS: None. REVIEW OF SYSTEMS: Reported suicide ideation, polysubstance abuse, seizure disorder with back pain. All other review of systems negative. PHYSICAL EXAMINATION: VITAL SIGNS: Temperature 97.7, pulse 44, respirations 18, blood pressure 143/88, pulse oximetry 99% on room air. GENERAL: The patient is alert, oriented times three. No acute distress. HEENT: Normocephalic, atraumatic. Positive for tongue biting and poor dentition with chipped tooth. PULMONARY: Bilaterally clear to auscultation. CARDIAC: Bradyarrhythmia, regular. S1, S2. ABDOMEN: Soft, nontender, nondistended. EXTREMITIES: No edema in bilateral lower extremities. NEUROLOGIC: Cranial nerves II through XII grossly intact. No focal deficits. Able to move all four extremities. EKG with sinus rhythm at 46, T wave inversion in V1, early repolarization, QTC score is 11. CT of the head within normal limits. Urine toxicology positive for opioids, diazepam, cocaine and cannabinoids. WBC 18.7, hemoglobin and hematocrit 14.8/44.3, platelets 382. Chemistry: Sodium 136, potassium 3.9, chloride 97, bicarbonate 30, BUN 10, creatinine 0.86, ammonia 24. Cardiac enzymes negative times one. TSH 0.51. ASSESSMENT AND PLAN: This is a 30-year-old male patient with underlying medical history of anxiety, depression, polysubstance abuse, admitted with seizure episodes associated with drugs. 1. Seizure episodes associated with polysubstance abuse. We will consult neurology. Monitor for withdrawal. Seizure precautions. Serax standing and as needed with Ativan 1 mg IV every 1 hour as needed. One-to-one observation. Urine toxicology appreciated. Followup EEG. The patient left prior to completing the workup during last visit. Case discussed with Dr. Rodriguez. Given the patient's seizure is likely secondary to polysubstance abuse, will not put the patient on any antiepileptic medication yet. If the patient has another seizure, will consider Depakote. 2. Polysubstance abuse. Counseling provided. Banana bag. Withdrawal precautions. One-to-one observation. Serax standing and as needed. Zofran as needed. Thiamine, multivitamin, folic acid. 3. Back pain. X-ray ordered. No focal injury noted on physical examination. 4. Suicide ideation with thoughts of hurting himself. We will consult psychiatry once the patient is medically cleared. One-to-one observation. Withdrawal precautions. Suicide precautions. Elopement precautions. 5. Alcohol abuse. Serax standing and as needed. Banana bag, thiamine, folate, and multivitamin. Monitor for withdrawal. 6. Smoking cessation counseling provided. Nicotine patch. 7. Deep vein thrombosis (DVT) prophylaxis. Heparin subcutaneously. 8. Depression and anxiety. Pending psychiatric consultation. 9. Hepatitis C. Outpatient followup. DISPOSITION: Pending psychiatric evaluation once the patient is medically optimized.
[2016-09-18] MEDS: ACETAMINOPHEN TAB 650MG DOSE (2X325MG) PO PRN (22:19)
[2016-09-18] MEDS: ONDANSETRON 4MG/2ML VIAL (J2405) IV PRN (22:24)
[2016-09-18 23:40] VITALS: BP 146/70
[2016-09-19] MEDS ORDERED: METOCLOPRAMIDE INJ 10MG/2ML VIAL (J2765) IV ONE
[2016-09-19] MEDS ORDERED: METOCLOPRAMIDE INJ 10MG/2ML VIAL (J2765) As Ordered ONE (00:02)
[2016-09-19] MEDS: OXAZEPAM 10 MG CAP PO SCH ×5 (00:06→23:37)
--- NOTE | 2016-09-19 01:14 | REP ---
Clinical: Trauma. Fall . Technique: AP, lateral, bilateral oblique, and coned-down views. Findings: Alignment is maintained. The vertebral bodies including transverse process and spinous processes are intact and normal. There is no evidence for acute fracture / compression injury or subluxation. No evidence for spondylolysis or spondylolisthesis. No significant degenerative change is noted. Impression: Normal lumbosacral spine radiograph series. Signed by Cyrus Adams MD 09/19/2016 01:05 A
--- NOTE | 2016-09-19 01:16 | REP ---
Clinical: Fall with thoracic pain. Technique: AP, lateral, and swimmers views. Findings: Alignment and kyphosis is maintained. Vertebral bodies intact. No acute fracture / compression injury or subluxation. No degenerative changes. Paravertebral soft tissues are normal. Impression: Normal thoracic spine series. Signed by Cyrus Adams MD 09/19/2016 01:08 A
[2016-09-19 04:00] VITALS: BP 143/70
[2016-09-19] MEDS: ONDANSETRON 4MG/2ML VIAL (J2405) IV PRN ×3 (04:41→15:54)
[2016-09-19] MEDS: HEPARIN SOD (PORCINE) 5000 UNITS/ML VIAL SC SCH ×4 (04:41→22:00)
[2016-09-19 06:08] LABS: MEAN CORPUSCULAR HEMOGLOBIN 30.9 pg (27.0-33.0); MEAN CORPUSCULAR HGB CONC 33.1 g/dl (32.0-36.5); MEAN CORPUSCULAR VOLUME 93.6 fl (80.0-96.0); RED CELL DISTRIBUTION WIDTH 13.4 % (11.5-14.5); WHITE BLOOD COUNT 14.2 K/mm3 (4.0-10.0)
[2016-09-19 06:21] LABS: ANION GAP 5 MEQ/L (8-16); BLOOD UREA NITROGEN 9 MG/DL (7-18); CALCIUM LEVEL 8.6 MG/DL (8.5-10.1); CARBON DIOXIDE LEVEL 29 MEQ/L (21-32); CHLORIDE LEVEL 106 MEQ/L (98-107); CREATININE FOR GFR 0.79 MG/DL (0.70-1.30); GLOMERULAR FILTRATION RATE > 60.0 (>60); GLUCOSE, FASTING 107 MG/DL (70-105); MAGNESIUM LEVEL 2.1 MG/DL (1.8-2.4); POTASSIUM SERUM 3.7 MEQ/L (3.5-5.1); SODIUM LEVEL 140 MEQ/L (136-145)
[2016-09-19 08:00] VITALS: BP 143/82
[2016-09-19] MEDS: NICOTINE 14 MG/24 HR TRANSDERMAL TD SCH (09:00)
[2016-09-19] MEDS ORDERED: SLF 3 ML SYR IV PRN (09:00)
[2016-09-19] MEDS: FOLIC ACID 1 MG TAB PO SCH (09:14)
[2016-09-19] MEDS: MULTIVITAMINS/MINERALS THERAP 1 TAB PO SCH (09:14)
[2016-09-19] MEDS: THIAMINE 100 MG TAB PO SCH (09:14)
[2016-09-19] MEDS: OXAZEPAM 10 MG CAP PO PRN (09:15)
--- NOTE | 2016-09-19 09:26 | ECGEPIP ---
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
[2016-09-19] MEDS: LORazepam 2 MG/ML VIAL (J2060) IV PRN ×6 (10:09→23:37)
[2016-09-19 12:20] VITALS: BP 129/76
[2016-09-19] MEDS: SLF 3 ML SYR IV SCH ×2 (13:02→22:00)
--- NOTE | 2016-09-19 15:10 | IPNPDOC ---
Subjective Date Seen The patient was seen on 09/19/16. Subjective Chief Complaint/HPI The patient is a 30-year-old male admitted with a reason for visit of Seizure. Events since last encounter Patient reports still having some nausea but no vomiting. He feels anxious still. Patient is a vomited but worried that he might vomit up his medication. Was able to get some sleep and did not sleep too well. Constitutional: Denies: Chills, Fever Eyes: Denies: Pain, Vision change ENT: Denies: Head Aches, Ear Pain Pulmonary: Denies: Dyspnea, Cough Cardiovascular: Denies: Chest Pain, Palpitations Gastrointestinal: Denies: Nausea, Vomiting, Abdominal Pain Genitourinary: Denies: Dysuria, Frequency Hematologic: Denies: Bleeding Excessively Musculoskeletal: Reports: Back Pain (Low back pain. Started yesterday after seizure.) Psych: Reports: Mood Normal, Anxiety Objective Physical Examination General Exam: Positive: Alert, Cooperative, No Acute Distress Eye Exam: Positive: PERRLA, Conjunctiva & lids normal, EOMI ENT Exam: Positive: Atraumatic, Mucous membr. moist/pink Neck Exam: Positive: Supple, JVD Chest Exam: Positive: Clear to auscultation, Normal air movement Heart Exam: Positive: Rate Normal, Normal S1, Normal S2, Negative: Gallops, Murmurs, Rubs Abdomen Exam: Positive: Normal bowel sounds, Soft, Negative: Tenderness, Hepatospenomegaly Extremity Exam: Positive: Normal pulses (radial pulse 2/4 bilaterally), Negative: Tenderness, Swelling Skin Exam: Positive: Nl turgor and temperature, Lesion (Some healed lacerations on lower extremity and foot bilaterally. ) Neuro Exam: Positive: Normal Speech, Strength at 5/5 X4 ext, Cranial Nerves 3- 12 NL, Other (Finger nose Finger intact. ) Assessment /Plan Assessment Polysubstance abuse withdrawal Patient admits to using cocaine, benzos, cannabinoids, opioids, alcohol. Patient is currently on Serax scheduled and as needed. Patient also has Ativan 1 mg every hour as needed. Patient is on one-to-one observation with withdrawal precautions, seizure precaution, low back precautions. Continue to monitor and follow as needed. Low Back pain This is acute low back pain started after seizure activity yesterday. X-ray of thoracic and lumbar spine did not reveal any significant acute changes. Continue to monitor clinically as needed. Problems (1) Seizure Status: Acute Problem Text: Patient was recently admitted September 06 for seizure. This is most likely related to polysubstance abuse. Neurology was consulted, Dr. Rodriguez. EEG has been ordered. Patient left previously before completing workup. Appreciate their assistance in management of this patient at this time. Continue to monitor for seizure activity. Patient has another seizure consider starting Depakote. (2) Polysubstance abuse Problem Text: Patient admits to using cocaine and heroin 2 days prior to admission. Patient also admits to using marijuana and diazepam and alcohol. Urine drug screen patient was positive for cocaine, cannabinoids, opioids, benzodiazepines. Monitoring patient for withdrawal symptoms at this time. Patient is on withdrawal precautions. (3) Suicidal ideation Status: Acute Problem Text: Patient admitted to point to trying to end his life with drugs. States that his father recently left him a lot of money and he's been slowly trying to get himself back on track life [place]. We'll need a referral to psychiatry once medically cleared. (4) Alcohol addiction Problem Text: Patient missed to drinking alcohol on occasion. Said the last time he had a drink was a few weeks prior to admission. Denies any recent alcohol use. Monitor patient for withdrawal. Patient is on Serax scheduled and as needed. Thiamine and folate orally continue daily. (5) Depression with anxiety Problem Text: Patient does admit to having suicidal ideation. On suicide precautions at this time. (6) Hepatitis C Problem Text: Past medical history significant for hepatitis C. Outpatient follow-up. (7) Nicotine addiction Problem Text: Patient admits to smoking pack a day for the past 6 years. Currently have prescribed a nicotine patch for patient. Plan/VTE VTE Prophylaxis Ordered?: Yes (Lovenox and compression stockings.) VS, I&O, 24H, Fishbone Vital Signs/I&O Vital Signs Date Time Temp Pulse Resp B/P (MAP) Pulse Ox O2 Delivery O2 Flow Rate FiO2 09/19/16 12:20 99.3 46 18 129/76 (93) 98 Room Air I&O- Last 24 Hours up to 6 AM 09/19/16 06:00 Intake Total 1000 ml Output Total 1500 ml Balance -500 ml Laboratory Data 24H LABS Laboratory Tests 2 09/18/16 14:41: White Blood Count 18.7H, Red Blood Count 4.83, Hemoglobin 14.8, Hematocrit 44.3 , Mean Corpuscular Volume 91.8, Mean Corpuscular Hemoglobin 30.7, Mean Corpuscular Hemoglobin Concent 33.5, Red Cell Distribution Width 13.5, Platelet Count 382, Neutrophils (%) (Auto) 82.8H, Lymphocytes (%) (Auto) 11.6L, Monocytes (%) (Auto) 3.9, Eosinophils (%) (Auto) 0.6, Basophils (%) (Auto) 0.2, Neutrophils # (Auto) 15.5H, Lymphocytes # (Auto) 2.3, Monocytes # (Auto) 0.7, Eosinophils # (Auto) 0.1, Basophils # (Auto) 0.0, Large Unclassified Cells % 0.9 , Large Unclassified Cells # 0.2, Anion Gap 9, Glomerular Filtration Rate > 60.0 , Osmolality 286, Calcium Level 9.4, Aspartate Amino Transf (AST/SGOT) 22, Alanine Aminotransferase (ALT/SGPT) 61, Alkaline Phosphatase 75, Total Bilirubin 0.5, Direct Bilirubin 0.1, Ammonia 24, Total Creatine Kinase 60, Creatine Kinase MB 1.0, Creatine Kinase MB Relative Index 1.66, Troponin I < 0.02, Total Protein 7.0, Albumin 3.9, Albumin/Globulin Ratio 1.26, Thyroid Stimulating Hormone (TSH) 0.510, Salicylates Level < 1.7L, Acetaminophen Level < 2.0L, Ethyl Alcohol Level < 0.003 09/18/16 15:07: Urine Appearance CLOUDYH, Urine Color YELLOW, Urine pH 9.0, Urine Specific [place] 1.018, Urine Protein 1+H, Urine Glucose (UA) NEGATIVE, Urine Ketones NEGATIVE, Urine Urobilinogen 0.2, Urine Bilirubin NEGATIVE, Urine Leukocyte Esterase NEGATIVE, Urine Blood NEGATIVE, Urine Nitrite NEGATIVE, Urine WBC (Auto ) 7H, Urine RBC (Auto) 1, Urine Hyaline Casts (Auto) 2, Urine Bacteria (Auto) 1+ H, Urine Squamous Epithelial Cells 0, Urine Amorphous Sediment SMALLH, Urine Mucus (Auto) SMALL, Urine Sperm (Auto) SMALLH, Urine Amphetamines Screen NEGATIVE, Urine Benzodiazepines Screen POSITIVEH, Urine Opiates Screen POSITIVEH , Urine Methadone Screen NEGATIVE, Urine Barbiturates Screen NEGATIVE, Urine Phencyclidine Screen NEGATIVE, Urine Cocaine Metabolite Screen POSITIVEH, Urine Cannabinoids Screen POSITIVEH 6/14/17 15:26: Bedside Glucose (Misc Panel) 109H 09/18/16 21:47: Total Creatine Kinase 63, Creatine Kinase MB 1.0, Creatine Kinase MB Relative Index 1.58, Troponin I < 0.02 09/19/16 05:36: Anion Gap 5L, Glomerular Filtration Rate > 60.0, Blood Urea Nitrogen 9, Creatinine 0.79, Sodium Level 140, Potassium Level 3.7, Chloride Level 106, Carbon Dioxide Level 29, Calcium Level 8.6, Magnesium Level 2.1 CBC/BMP Laboratory Tests 09/18/16 14:41 Red Blood Count 4.83, Mean Corpuscular Volume 91.8, Mean Corpuscular Hemoglobin 30.7, Mean Corpuscular Hemoglobin Concent 33.5, Red Cell Distribution Width 13.5 , Neutrophils (%) (Auto) 82.8 H, Lymphocytes (%) (Auto) 11.6 L, Monocytes (%) ( Auto) 3.9, Eosinophils (%) (Auto) 0.6, Basophils (%) (Auto) 0.2, Neutrophils # ( Auto) 15.5 H, Lymphocytes # (Auto) 2.3, Monocytes # (Auto) 0.7, Eosinophils # ( Auto) 0.1, Basophils # (Auto) 0.0 09/19/16 05:36 Red Blood Count 4.68, Mean Corpuscular Volume 93.6, Mean Corpuscular Hemoglobin 30.9, Mean Corpuscular Hemoglobin Concent 33.1, Red Cell Distribution Width 13.4 , Calcium Level 8.6 Microbiology Microbiology 09/18/16 Blood Culture, Received Pending 09/18/16 Blood Culture, Received Pending GME ATTESTATION GME ATTESTATION My preceptor for this patient encounter was physically present in the building during the encounter and was fully available. As needed, all aspects of the patient interview, examination, medical decision making process, and medical care plan development were reviewed and approved by the preceptor. Preceptor is aware and concurs with the plan as stated in the body of this note and will attest to such by his/her cosignature. CHARLETTE FIORE DO Sep 19, 2016 15:10
[2016-09-19 16:00] VITALS: BP 148/83
[2016-09-19 20:00] VITALS: BP 139/85
[2016-09-19] MEDS: ACETAMINOPHEN TAB 650MG DOSE (2X325MG) PO PRN (20:25)
[2016-09-19 23:42] VITALS: BP 129/76
[2016-09-20] MEDS: LORazepam 2 MG/ML VIAL (J2060) IV PRN ×4 (02:51→08:22)
[2016-09-20 03:27] VITALS: BP 129/68
[2016-09-20] MEDS: OXAZEPAM 10 MG CAP PO SCH ×2 (05:22→11:36)
[2016-09-20] MEDS: HEPARIN SOD (PORCINE) 5000 UNITS/ML VIAL SC SCH ×2 (05:22→14:00)
[2016-09-20] MEDS: SLF 3 ML SYR IV SCH ×2 (05:23→14:00)
[2016-09-20 05:26] LABS: MEAN CORPUSCULAR HEMOGLOBIN 31.1 pg (27.0-33.0); MEAN CORPUSCULAR HGB CONC 33.9 g/dl (32.0-36.5); MEAN CORPUSCULAR VOLUME 91.7 fl (80.0-96.0); RED CELL DISTRIBUTION WIDTH 13.3 % (11.5-14.5); WHITE BLOOD COUNT 11.5 K/mm3 (4.0-10.0)
[2016-09-20 05:47] LABS: ANION GAP 5 MEQ/L (8-16); BLOOD UREA NITROGEN 8 MG/DL (7-18); CALCIUM LEVEL 8.8 MG/DL (8.5-10.1); CARBON DIOXIDE LEVEL 29 MEQ/L (21-32); CHLORIDE LEVEL 97 MEQ/L (98-107); CREATININE FOR GFR 0.82 MG/DL (0.70-1.30); GLOMERULAR FILTRATION RATE > 60.0 (>60); GLUCOSE, FASTING 110 MG/DL (70-105); MAGNESIUM LEVEL 2.3 MG/DL (1.8-2.4); POTASSIUM SERUM 3.6 MEQ/L (3.5-5.1); SODIUM LEVEL 131 MEQ/L (136-145)
[2016-09-20 07:26] VITALS: BP 140/77
--- NOTE | 2016-09-20 07:47 | EEG ---
DATE OF PROCEDURE: 09/19/2016 REFERRING PHYSICIAN: Dr. Iban Shields DIAGNOSIS: Seizure. EEG #: [id number] HISTORY: The patient is a 30-year-old male with polysubstance abuse and seizures. This EEG was done to rule out epileptic potential. He is currently on oxazepam, thiamine, nicotine, Reglan, etc. TECHNICAL DESCRIPTION: This digital EEG was recorded by 21 scalp, ear and two EKG electrodes and was reviewed in bipolar and referential montages following reformatting in 10-20 international electrode placement system. INTERPRETATION: The patient was noted to be in awake and drowsy states during this EEG. Resting awake background rhythm consisted of well-formed posterior dominant rhythm with anterior/posterior gradient comprising of 10 Hz alpha activity measuring 15-40 microvolts in amplitude which was symmetric and reactive to eye opening. Attenuation of posterior dominant rhythm was seen during transition into drowsiness. Anteriorly, low voltage and mixed frequency activity was noted. Stage I and II sleep were reviewed and were symmetric bilaterally. Hyperventilation could not be performed. Photic stimulation remained unremarkable. EKG revealed normal sinus rhythm. No focal, lateralizing or epileptiform abnormalities were seen. No clinical or electrographic seizures were recorded. CONCLUSION: This EEG in awake, drowsy states, stage I and II sleep is within normal limits.
--- NOTE | 2016-09-20 07:57 | CR ---
DATE OF CONSULTATION: 09/19/2016 REFERRING PHYSICIAN: Stephanie Jones MD REASON FOR CONSULTATION: Seizures. HISTORY OF PRESENT ILLNESS: Rakesh Ramírez is a 30-year-old man with a history of hepatitis C, polysubstance abuse who was admitted at [facility] on September 06 for a seizure related to drug abuse. He had two more recurrent seizures, which were described as generalized tonic-clonic seizures lasting for 1 or 2 minutes and he was postictal for 15-30 minutes afterwards. He had tongue biting and urinary incontinence. He was found by his neighbor who called emergency medical services who brought him to [facility]. The patient has been actively abusing heroin every day, cocaine, marijuana and benzodiazepines. The patient states that his father had and had left him with a large sum of money and he has been using that money to pay for his drugs. He has admitted to suicidal thoughts and ending his life with intravenous drugs. He denies any headaches or neck pain. He has a history of off and on lower back pain. He left against medical advice last time from [facility]. ALLERGIES: None. PAST MEDICAL HISTORY: Hepatitis C. Anxiety. Depression. Polysubstance abuse. SOCIAL HISTORY: He states that he uses 2 grams of intravenous heroin a day and has used cocaine, marijuana, benzodiazepines off and on. He lives alone. He has one son who is in foster care. FAMILY HISTORY: Father had cirrhosis. HOME MEDICATIONS: None. REVIEW OF SYSTEMS: All systems were reviewed and were found to be noncontributory except as mentioned in the history present illness. PHYSICAL EXAMINATION: Temperature 98.3, pulse 53, respiratory rate 18, blood pressure 148/83, 98% saturation on room air. HEART: Regular rate and rhythm. LUNGS: Clear to auscultation. ABDOMEN: Soft, nontender, nondistended. EAR/NOSE/THROAT: Examination is within normal limits. No gross musculoskeletal abnormalities. No pedal edema. Peripheral pulses are palpable. He is awake, alert, oriented to place, person and time. Normal speech comprehension and repetition. Extraocular muscles are intact. No facial weakness. Tongue and uvula are midline. 5/5 strength in all four extremities. Deep tendon reflexes are 2+ throughout. Normal sensation. Gait is normal. No dysmetria or ataxia. ASSESSMENT: 1. Seizures related to polysubstance abuse. 2. Polysubstance abuse with urine tox positive for benzodiazepines, cocaine, opiates, cannabis and the patient admits using regular every day intravenous heroin and other substances periodically. PLAN: 1. EEG. 2. Antiepileptic medication only if EEG suggestive of epilepsy. Drug related seizures are usually not treated. 3. He must quit abusing illicit drugs. 4. He is aware that he should not be driving. 5. Other seizure precautions were completely explained.
[2016-09-20] MEDS: THIAMINE 100 MG TAB PO SCH (08:09)
[2016-09-20] MEDS: FOLIC ACID 1 MG TAB PO SCH (08:09)
[2016-09-20] MEDS: ONDANSETRON 4MG/2ML VIAL (J2405) IV PRN (08:09)
[2016-09-20] MEDS: MULTIVITAMINS/MINERALS THERAP 1 TAB PO SCH (08:09)
[2016-09-20] MEDS: ACETAMINOPHEN TAB 650MG DOSE (2X325MG) PO PRN (08:10)
[2016-09-20] MEDS: NICOTINE 14 MG/24 HR TRANSDERMAL TD SCH (08:11)
[2016-09-20] MEDS ORDERED: ONDANSETRON 4 MG TAB (S0181) PO PRN (10:45)
[2016-09-20] MEDS: OXAZEPAM 10 MG CAP PO PRN (13:23)
[2016-09-20] MEDS ORDERED: FOLI1TAB2 PO (13:54)
[2016-09-20] MEDS ORDERED: ACET65TA PO (13:54)
[2016-09-20] MEDS ORDERED: VITMTA PO (13:54)
[2016-09-20] MEDS ORDERED: OXAZ10CA PO ×2 (13:54)
[2016-09-20] MEDS ORDERED: NICO14PA TD (13:54)
[2016-09-20] MEDS ORDERED: THIA100TA PO (13:54)
[2016-09-20] MEDS ORDERED: chlordiazePOXIDE 25 MG CAP PO ONE (15:00)
[2016-09-20] MEDS ORDERED: METHADONE 5 MG TAB (S0109) PO ONE (15:00)
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
--- NOTE | 2016-09-21 16:02 | DS.PDOC ---
Discharge Summary General Date of Admission Sep 18, 2016 at 20:48 Date of Discharge September 20, 2016 Specialist/Consultants Involve: Mayo Rooney MD Discharge Summary Primary care physician: None PROCEDURES PERFORMED DURING STAY: None. ADMITTING DIAGNOSES: 1. Seizure episodes associated with polysubstance abuse. 2. Polysubstance abuse. 3. Suicidal ideation with thoughts of hurting himself. DISCHARGE DIAGNOSES: 1. Seizure episodes associated with polysubstance abuse. 2. Polysubstance abuse. 3. Suicidal ideation with thoughts of hurting himself. COMPLICATIONS/CHIEF COMPLAINT: Seizure. HISTORY OF PRESENT ILLNESS: Patient is a 30-year-old male with significant past medical history for hepatitis C, anxiety, depression, polysubstance abuse, recent seizures presents to the ER after being found having a seizure this afternoon. Patient was previously admitted on 09/06/2016 for seizure secondary to drug abuse. Patient had left AGAINST MEDICAL ADVICE during that stay. Today patient was found initially on the lawn in the front yard by his neighbor. The neighbor called ambulance and the patient was brought in. Patient reportedly bit his tongue during seizure. Upon arrival patient stated he been very depressed recently. Patient stated that his father had left him with large sum of money and the patient is been using a lot of drugs and has thoughts of ending his life. Last he used cocaine was yesterday and her 1 couple days ago. Patient also reports using marijuana, diazepam and alcohol beverage on occasion. Patient does admit to smoking half a pack of cigarettes daily for the past 6 years. Upon presentation to the ER patient also mentioned thoughts of hurting himself or harming self with IV drug use and thoughts of committing suicide with IV drugs. Patient denied any chest pain, pressure or discomfort. Patient did report having back pain. Patient feels very anxious. Denies fevers chills headaches, vision changes, neck stiffness. Blood cultures were negative 2. White blood cell count was elevated upon admission but trended down. Patient had reported back pain upon admission lumbar and thoracic radiographs were normal. No fractures. Normal chest radiograph. HOSPITAL COURSE: Since being in the hospital patient has been put on suicide precautions, seizure precautions, elopement precautions. For alcohol withdrawal patient was started on Cerebyx scheduled and cervix when necessary. Patient was also started on Ativan when necessary. Patient had been calm previous day. Patient is placed on folic acid as well as thiamine for alcohol abuse. On 09/20 patient was moved from PCU to . Upon arrival to the floor patient was walking the hallways and left down the stairs. Patient was caught by the police and brought back to the floor. Head CT was normal. Patient did not have any seizure activity. Once patient was deemed stable enough for INH E care psychiatry was consulted. Dr. mckeon examine the patient and deemed him eligible for INH she care. Patient will be discharged and transferred to [facility]. DISCHARGE MEDICATIONS: Please see below. ALLERGIES: Please see below. PHYSICAL EXAMINATION ON DISCHARGE: VITAL SIGNS: Please see below. GENERAL: Anxious and agitated. No acute respiratory distress. Patient does not want to be here HEENT: No signs of trauma. Chipped tooth. NECK: No lymphadenopathy. CARDIOVASCULAR EXAMINATION: Normal S1 and S2. No clicks rubs gallops or murmurs. RESPIRATORY EXAMINATION: Clear to auscultation bilaterally. No wheezing or rales. ABDOMINAL EXAMINATION: Soft nondistended. Bowel sounds on auscultation. EXTREMITIES: No lower extremity edema. Radial pulses 2 out of 4 bilaterally. SKIN: No new rashes or lesions. NEUROLOGICAL EXAMINATION: Speech intact. PSYCHIATRIC EXAMINATION: Anxious. Agitated. LABORATORY DATA: Please see below. IMAGING: Lumbar radiograph showed normal lumbosacral spine radiograph series. Thoracic radiograph showed normal thoracic spine series. Head CT showed there is no intracranial lesion. Chest radiograph showed no acute pulmonary disease. PROGNOSIS: Stable ACTIVITY: As tolerated.. DIET: As tolerated. DISCHARGE PLAN: Patient is a 3-year-old male with past history significant for hepatitis C, anxiety, depression, polysubstance abuse, seizure presents to the presented to the ER after having a seizure. Patient also admitted in the ER that he had thoughts of killing himself and committing suicide. Patient is being discharged to inpatient mental health unit. DISPOSITION: 70 Xfer Other. [facility]. DISCHARGE INSTRUCTIONS: 1. Follow-up and management per psych recommendations. 2. Discharge to inpatient mental health unit. DISCHARGE CONDITION: Stable TIME SPENT ON DISCHARGE: Greater than 30 minutes. Vital Signs/I&Os Vital Signs Date Time Temp Pulse Resp B/P (MAP) Pulse Ox O2 Delivery O2 Flow Rate FiO2 09/20/16 15:13 18 09/20/16 07:26 99.9 58 140/77 (98) 96 Room Air I&O- Last 24 Hours up to 6 AM 09/21/16 06:00 Intake Total 300 ml Output Total 0 ml Balance 300 ml Microbiology Microbiology 09/18/16 Blood Culture - Preliminary, Resulted No Growth after 48 hours. All Specime... 09/18/16 Blood Culture - Preliminary, Resulted No Growth after 48 hours. All Specime... Discharge Medications Scheduled Folic Acid (Folic Acid) 1 Mg Tab, 1 MG PO DAILY Multivitamins *[facility] STOCKED* (Thera M Plus *[facility] STOCKED*) 1 Tab Tab, 1 TAB PO DAILY Nicotine (Nicotine Transdermal Syst) 14 Mg/24 Hr Dis, 1 PATCH TD DAILY Oxazepam (Oxazepam) 10 Mg Cap, 20 MG PO Q6H Thiamine Hcl (Thiamine Hcl) 100 Mg Tab, 100 MG PO DAILY Scheduled PRN Acetaminophen (Mapap) 325 Mg Tab, 650 MG PO Q4HP PRN for MILD PAIN OR FEVER Oxazepam (Oxazepam) 10 Mg Cap, 10 MG PO Q4HP PRN for etoh withdrawal Allergies Coded Allergies: No Known Allergies (Unverified , 03/09/15) GME ATTESTATION GME ATTESTATION My preceptor for this patient encounter was Dr. Shields and he was physically present in the building during the encounter and was fully available. As needed , all aspects of the patient interview, examination, medical decision making process, and medical care plan development were reviewed and approved by the preceptor. Preceptor is aware and concurs with the plan as stated in the body of this note and will attest to such by his/her co-signature. CHARLETTE FIORE DO Sep 21, 2016 16:02
== END 2016-09-20 17:13 | DRG 773 ==
LOC: EDBD 13:47 → M ED 15:34 → M ED INP 20:48 → M PCU 23:45 → M MS5PR 09-20 11:03
PROVIDERS: ADMIT Hospitalist; ATTEND Internal Medicine
DX: F11.288 Opioid dependence with other opioid-induced disorder (principal); R56.9 Unspecified convulsions; F10.20 Alcohol dependence, uncomplicated; F12.288 Cannabis dependence with other cannabis-induced disorder; B18.2 Chronic viral hepatitis C; F32.9 Major depressive disorder, single episode, unspecified; F41.9 Anxiety disorder, unspecified; F17.210 Nicotine dependence, cigarettes, uncomplicated; M54.5 Low back pain

== ENCOUNTER 2016-09-20 17:05 | Inpatient (IN) | payer OTHER ==
[~2016-09-20] VITALS: Ht 180.3 cm; Wt 68.2 kg
[~2016-09-20 17:05] MED LIST changes: +FOLI1TAB4 PO; +MAPA325T3 PO; +NICO14PA TD; +OXAZ10CA3 PO; +PAXI20TA29 PO; -PAXI20TA3 PO; -RISP1TAB41 PO; +RISP1TAB42 PO; +THIA100TA PO; +TRAZ-136 PO; -TRAZ100T4 PO; +VITMTA PO
[2016-09-20 17:14] VITALS: BP 128/82
[2016-09-20] MEDS ORDERED: MAALOX 30 ML SUSP *UDC PO PRN (17:30)
[2016-09-20] MEDS: NICOTINE 7 MG/24 HR TRANSDERMAL TD SCH (18:52)
[2016-09-20] MEDS: chlordiazePOXIDE 25 MG CAP PO SCH (20:16)
[2016-09-20] MEDS ORDERED: METHADONE 10 MG TAB (S0109) PO ONE (21:00)
[2016-09-20] MEDS: traZODone 100 MG TAB PO PRN (23:53)
[2016-09-21 06:41] VITALS: BP 108/50
[2016-09-21] MEDS: NICOTINE 7 MG/24 HR TRANSDERMAL TD SCH (09:17)
[2016-09-21] MEDS: chlordiazePOXIDE 25 MG CAP PO SCH ×3 (09:17→20:06)
[2016-09-21] MEDS: THIAMINE 100 MG TAB PO SCH (09:17)
[2016-09-21] MEDS: FOLIC ACID 1 MG TAB PO SCH (09:17)
[2016-09-21] MEDS: MULTIVITAMINS/MINERALS THERAP 1 TAB PO SCH (09:17)
[2016-09-21] MEDS ORDERED: METHADONE 10 MG TAB (S0109) PO ONE (11:00)
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
[2016-09-21] MEDS: ONDANSETRON 4 MG TAB (S0181) PO PRN (17:37)
[2016-09-21 18:38] VITALS: BP 104/58
[2016-09-21] MEDS: METHADONE 10 MG TAB (S0109) PO SCH (20:06)
[2016-09-21] MEDS: traZODone 100 MG TAB PO PRN (23:48)
[2016-09-22 06:17] VITALS: BP 108/53
[2016-09-22] MEDS: MULTIVITAMINS/MINERALS THERAP 1 TAB PO SCH (08:51)
[2016-09-22] MEDS: METHADONE 10 MG TAB (S0109) PO SCH ×2 (08:51→20:20)
[2016-09-22] MEDS: FOLIC ACID 1 MG TAB PO SCH (08:51)
[2016-09-22] MEDS: THIAMINE 100 MG TAB PO SCH (08:51)
[2016-09-22] MEDS: chlordiazePOXIDE 25 MG CAP PO SCH ×3 (08:51→20:20)
[2016-09-22] MEDS: NICOTINE 7 MG/24 HR TRANSDERMAL TD SCH (08:52)
[2016-09-22 12:08] VITALS: BP 104/60
[2016-09-22] MEDS: ONDANSETRON 4 MG TAB (S0181) PO PRN (13:09)
[2016-09-22] MEDS: CitaloPRAM (CeleXA) 10 MG TABLET PO SCH (16:18)
[2016-09-22 18:00] VITALS: BP 116/64
--- NOTE | 2016-09-22 18:55 | IPN ---
DATE: 09/22/2016 SUBJECTIVE: "I have bad withdrawals." OBJECTIVE: Patient was reporting withdrawals early in the morning, however observing him at a distance in the afternoon, patient appears to be improving. I discussed the treatment plan with the patient and told him that he is now taking the minimum amount of methadone to cover receptors and that tomorrow methadone will be decreased 5 mg in the morning and 10 mg at bedtime. Patient has very little insight about his chemical dependency. His depression is improving. He is able co contract for safety during his hospitalization. MENTAL STATUS EXAMINATION: Patient is dressed in [facility]. Has poor eye contact. Speech is soft and monotone. Mood is depressed and anxious. Affect is restricted. No delusions or hallucinations. Memory, attention, and concentration are fair. Patient denies suicidal or homicidal ideation during the interview. Insight and judgment is limited. ASSESSMENT: 1. Depression. 2. Suicidal ideation. 3. Polysubstance dependency. PLAN: 1. Decrease the methadone to 5 mg by mouth every morning and 10 mg by mouth nightly and decrease by 5 mg daily until discontinue. 2. Decrease Librium to 25 mg by mouth twice a day. Continue tapering. 3. Continue trazodone 100 mg by mouth nightly as needed for insomnia. 4. Continue Celexa 10 mg by mouth every morning and increase as tolerated.
[2016-09-22] MEDS: traZODone 100 MG TAB PO PRN (23:06)
[2016-09-23] MEDS: traZODone 100 MG TAB PO ONE ×2 (02:00→02:53)
[2016-09-23 07:25] VITALS: BP 118/79
--- NOTE | 2016-09-23 07:59 | HPE ---
DATE OF ADMISSION: 09/20/2016 HISTORY OF THE PRESENT ILLNESS: Please refer to psychiatric history and evaluation for further details on this admission. This examination and history is intended for medical issues which may need treatment, followup, or consult on this 30-year-old male who was transferred down after having been stabilized and treated for seizures secondary to polysubstance abuse. ALLERGIES: No known drug allergies. PAST MEDICAL HISTORY: Recently diagnosed with hepatitis C. Anxiety. Depression. Polysubstance abuse. PAST SURGICAL HISTORY: None. SOCIAL HISTORY: He is single. He uses cocaine, intravenous (IV) heroin, marijuana and benzodiazepines. He occasionally drinks alcohol. He smokes about 1-1/2 packs of cigarettes per day. He lives alone. FAMILY HISTORY: Father cirrhosis. HOME MEDICATIONS: None. REVIEW OF SYSTEMS: He had a seizure secondary to polysubstance abuse. He is having complaints of withdrawals, sweating and nausea, otherwise negative. PHYSICAL EXAMINATION: A 30-year-old cooperative male in no acute distress. Height 71 inches, weight is 65 kg. Body mass index (BMI). 20. Blood pressure 108/50. Pulse 60. Respirations 16. Temperature 97. The patient is alert and oriented times three. Pupils are equal and reactive to light. Extraocular movements intact. Cornea and sclerae clear. Conjunctivae is normal. No facial asymmetry. Pharynx: Tongue and gums pink and moist. Tongue is midline. Neck is supple without lymphadenopathy. No thyromegaly. No goiter. Chest is clear to auscultation without wheeze or retractions. Heart is regular. Abdomen benign. Bowel sounds are positive. Genital/Rectal: Not done. Extremities show equal strength, full range of motion. No cyanosis, clubbing or edema. Peripheral pulses equal and palpable bilaterally. Skin is warm and dry. IMPRESSION AND PLAN: Psychiatric plan per psychiatry. History of hepatitis C. Outpatient referral to Dr. Stinson. Polysubstance abuse with withdrawal. Monitor for withdrawals. Continue thiamine, folic acid, Zofran for nausea and the patient has been placed on methadone twice a day. Smoking cessation. He has a nicotine patch. Occasional chronic back pain. X-ray showed normal lumbosacral spine. No use of Tylenol secondary to diagnosis of hepatitis C. Recommend if it bothers him on discharge, he can try Icy Hot or warm moist heat.
[2016-09-23] MEDS: NICOTINE 7 MG/24 HR TRANSDERMAL TD SCH (08:42)
[2016-09-23] MEDS: FOLIC ACID 1 MG TAB PO SCH (08:42)
[2016-09-23] MEDS: THIAMINE 100 MG TAB PO SCH (08:42)
[2016-09-23] MEDS: chlordiazePOXIDE 25 MG CAP PO SCH ×3 (08:42→20:09)
[2016-09-23] MEDS: CitaloPRAM (CeleXA) 10 MG TABLET PO SCH (08:42)
[2016-09-23] MEDS: MULTIVITAMINS/MINERALS THERAP 1 TAB PO SCH (08:42)
[2016-09-23] MEDS: METHADONE 5 MG TAB (S0109) PO SCH (08:42)
[2016-09-23] MEDS: diphenhydrAMINE 50 MG CAP PO PRN ×2 (14:27→21:59)
[2016-09-23 18:00] VITALS: BP 132/86
[2016-09-23] MEDS: METHADONE 10 MG TAB (S0109) PO SCH (20:10)
--- NOTE | 2016-09-23 21:56 | IPN ---
DATE: 09/23/2016 SUBJECTIVE: "I have bad withdrawals." OBJECTIVE: The patient continues to report withdrawal from opiate medication. The patient continues to say that he was taking high doses and he needs to have more methadone and medication for anxiety. The patient was unable to sleep well last night. He was requesting medication for anxiety. I discussed the treatment plan with the patient and told him that we needed to use a minimum amount of any medication that could be addictive and all of these medications are part of his detox protocol. I told him that he is on Librium 25 mg by mouth three times a day scheduled and also on the methadone taper. The patient stated that he has not been able to eat in the last three days. We discussed that issue and I will get a consult with a physical therapist assistant and add Ensure. Also for his anxiety, nonaddictive medication will be added on. MENTAL STATUS EXAMINATION: The patient is dressed in [facility]. The patient is complaining of withdrawal. His facial expression is restricted. He has poor eye contact. Speech is slow and monotone. Mood is depressed and anxious. There is no evidence of delusions or hallucinations. Memory, attention, and concentration are fair. The patient is able to contract for safety during his hospitalization. Insight, as far as his chemical dependency, is low. Judgment is fair. ASSESSMENT: 1. Depression. 2. Suicidal ideation. 3. Polysubstance dependency. 4. Opiate withdrawal. PLAN: 1. Continue with methadone 5 mg by mouth in the morning and 10 mg by mouth at night. 2. Increase Librium to 25 mg by mouth three times a day. 3. Increase trazodone to 200 mg by mouth at night. 4. Continue Celexa 20 mg by mouth in the morning. 5. Benadryl 50 mg by mouth four times a day as needed for insomnia. 6. Continue medication management, individual and group therapy.
[2016-09-23] MEDS: ONDANSETRON 4 MG TAB (S0181) PO PRN (22:58)
[2016-09-24] MEDS: traZODone 100 MG TAB PO PRN ×2 (00:22→23:45)
[2016-09-24 06:33] VITALS: BP 105/59
[2016-09-24] MEDS: ONDANSETRON 4 MG TAB (S0181) PO PRN ×3 (08:19→21:54)
[2016-09-24] MEDS: THIAMINE 100 MG TAB PO SCH (08:57)
[2016-09-24] MEDS: METHADONE 5 MG TAB (S0109) PO SCH (08:57)
[2016-09-24] MEDS: CitaloPRAM (CeleXA) 20 MG TAB PO SCH (08:57)
[2016-09-24] MEDS: chlordiazePOXIDE 25 MG CAP PO SCH ×3 (08:57→21:55)
[2016-09-24] MEDS: MULTIVITAMINS/MINERALS THERAP 1 TAB PO SCH (08:57)
[2016-09-24] MEDS: FOLIC ACID 1 MG TAB PO SCH (08:57)
[2016-09-24] MEDS: NICOTINE 7 MG/24 HR TRANSDERMAL TD SCH (08:58)
[2016-09-24] MEDS: diphenhydrAMINE 50 MG CAP PO PRN ×2 (15:32→21:54)
[2016-09-24 16:47] LABS: MEAN CORPUSCULAR HEMOGLOBIN 31.6 pg (27.0-33.0); MEAN CORPUSCULAR HGB CONC 34.1 g/dl (32.0-36.5); MEAN CORPUSCULAR VOLUME 92.6 fl (80.0-96.0); WHITE BLOOD COUNT 7.2 K/mm3 (4.0-10.0)
--- NOTE | 2016-09-24 17:49 | MHIPNPDOC ---
[facility] Progress Note Progress Note DATE OF SERVICE: 09/24/16 HISTORY: Patient is transfer from medical floor after experiencing seizure secondary to polysubstance abuse. Patient has a history of prior admissions, left AMA after being admitted on 09/06/16 for seizures secondary to substance abuse. Tip Stitcher met with patient today to assess treatment progress on unit. Patient was observed to be lying in bed, resistant to speaking with abstract writer. Patient indicated he has been throwing up today and is sleeping because he is experiencing withdrawal symptoms, stated to abstract writer, "I'm dope sick, maybe I'll get up later." Patient reported having consumed ensure for breakfast without vomiting, added he had not vomited in over 4 hours. Patient reported current anxiety level as 7/10, depression 8/10, denied suicidal and homicidal ideation, denies auditory or visual hallucinations, and denies urge to engage in self injurious behavior. Patient reports improvement to symptoms of depression with antidepressant medication and improvement to sleep with trazodone, has been utilizing benadryl PRN for intermittent symptoms of anxiety and denies medication side effects. Patient stated he is sleeping "alright," denies nightmare symptoms. Patient declined to answer questions pertaining to energy level, concentration and focus. Clinical consult completed with recommendation to discontinue methadone and continue librium taper, attempts made to discuss taper plans with patient who was isolative to room and sleeping during afternoon. Ensure and nutritional consult ordered by admitting provider, will place on I and O for monitoring purposes. VITAL SIGNS: See below. NEW TEST RESULTS: Recently diagnosed with Hep C, history of seizure secondary to substance abuse Labs on admission indicated elevated WBC, neut %, Neut #, glucose, CRP and low lymph %, sodium, chloride, and anion gap 09/20/16 EKG SINUS BRADYCARDIA WITH SINUS ARRHYTHMIA ST ELEVATION, PROBABLY EARLY REPOLARIZATION, CLINICAL CORRELATION DECREASED RATE 09/07/16 UDS positive for opiates, benzodiazepines, cocaine, and cannabinoids CURRENT MEDICATIONS: See below. MENTAL STATUS EXAMINATION: Patient is a 30-year old male, who is observed to be lying in bed, does not get up to meet with abstract writer for assessment purposes, makes poor eye contact, is disheveled, dressed in hopsital clothing, appears stated age Speech: Is of normal rate, loud volume at times, normal volume at other times, spontaneous, coherent Language skills are Intact Thought processes including: Appear linear, logical, goal directed Thought content: Require further assessment but appear logical, rational, goal directed Abstract reasoning, and computation: Require further assessment Description of associations: Intact. Description of abnormal or psychotic thoughts: Denies suicidal or homicidal ideation, denies auditory or visual hallucinations, denies presoocupation with violence or obsessions, Judgment: Poor Insight: Poor Orientation: A and O X 3 Recent and remote memory: Appear intact Attention span and concentration: Appear intact Language: Adequate Fund of knowledge: Requires further evaluation Mood: "Irritable." Affect: Blunted. Patient appears depressed and anxious, some mood lability noted DIAGNOSES: Unspecified Depressive Disorder, polysubstance use disorder, rule out MDD, rule out substance induced mood disorder, ASSESSMENT: Patient is adjusting to unit slowly, remains isolated to room, reports experiencing withdrawal symptoms, has been encouraged to be visible, and participate in unit activities. Patient has been placed librium and methadone tapers by admitting provider, states he continues to experience symptoms of withdrawal but reports some improvement. Follow up clinical consultation completed with recommendation to further taper librium and discontinue methadone. Patient states trazodone, celexa, and Benadryl are helping to reduce symptoms of anxiety, depression, and improve sleep. Patient is minimizing events, behavior, and substance abuse which led to current hospitalization. Patient states he is consuming Ensure, has been placed on I and O, dietary consult was ordered by previous provider, and nursing will continue to monitor for vomiting/GI distress. Will monitor patient's response to medications and will monitor for medication side effects. Will evaluate patient safety and discharge readiness. Patient denies current suicidal ideation and verbalizes awareness of how to access supportive services o unit if needed. Patient denies need for substance abuse treatment at discharge, is agreeing to participate in outpatient services through [facility], is aware strong recommendation is being made for inpatient substance abuse treatment. MANAGEMENT PLAN: Continue Celexa 20 mg po q am, trazodone 200 mg po hs PRN insomnia, Benadryl 50 mg po q 6 hours PRN anxiety/agitation. Reduce methadone to 5 mg po q am for today then stop. Reduce librium to 25 mg po BID with plan to continue taper as tolerated by patient Place patient on I and O Monitor patient for safety Encourage patient to participate in unit programming Encourage patient to participate in the discharge planning process and involve support system to ensure safe discharge when patient is ready Patient to follow up with PCM upon discharge TIME SPENT: 35 minutes. Vital Signs Vital Signs Date Time Temp Pulse Resp B/P (MAP) Pulse Ox O2 Delivery O2 Flow Rate FiO2 09/24/16 08:57 16 09/24/16 06:33 97.0 56 105/59 (74) 09/20/16 22:19 97 Laboratory Data 24H Labs Laboratory Tests 2 09/24/16 16:23: CBC/BMP Laboratory Tests 09/24/16 16:23 Red Blood Count 4.62, Mean Corpuscular Volume 92.6, Mean Corpuscular Hemoglobin 31.6, Mean Corpuscular Hemoglobin Concent 34.1, Red Cell Distribution Width 13.0 Current Medications Current Medications Acetaminophen (Tylenol Tab) 650 mg Q6HP PRN PO HEADACHE or DISCOMFORT; Start at 17:30; Stop 10/20/16 at 17:29 Al Hydrox/Mg Hydrox/Simethicone (Mylanta) 30 ml Q4HP PRN PO HEARTBURN/ INDIGESTION; Start 09/20/16 at 17:30; Stop 10/20/16 at 17:29 Chlordiazepoxide (Librium) 25 mg BID PO Last administered on 09/24/16 08:57; Start 09/22/16 at 21:00; Stop 09/24/16 at 09:44; Status DC Chlordiazepoxide (Librium) 25 mg TID PO Last administered on 09/22/16 15:27; Start 09/20/16 at 21:00; Stop 09/22/16 at 15:43; Status DC Chlordiazepoxide (Librium) 25 mg TID PO Last administered on 09/24/16 15:32; Start 09/23/16 at 16:00; Stop 09/30/16 at 15:59; Status Future hold Citalopram Hydrobromide (CeleXA) 10 mg QAM PO Last administered on 09/23/16 08 :42; Start 09/22/16 at 09:00; Stop 09/23/16 at 15:29; Status DC Citalopram Hydrobromide (CeleXA) 20 mg QAM PO Last administered on 09/24/16 08 :57; Start 09/24/16 at 09:00; Stop 10/24/16 at 08:59 Diphenhydramine HCl (Benadryl) 50 mg Q6HP PRN PO ANXIETY/AGITATION Last administered on 09/24/16 15:32; Start 09/23/16 at 12:00; Stop 10/23/16 at 11:59 Folic Acid (Folic Acid) 1 mg DAILY PO Last administered on 09/24/16 08:57; Start 09/21/16 at 09:00; Stop 10/21/16 at 08:59 Methadone HCl (Dolophine) 5 mg QAM PO Last administered on 09/24/16 08:57; Start 09/23/16 at 09:00; Stop 09/30/16 at 08:59 Methadone HCl (Dolophine) 10 mg BID PO Last administered on 09/22/16 08:51; Start 09/21/16 at 21:00; Stop 09/22/16 at 15:43; Status DC Methadone HCl (Dolophine) 10 mg QHS PO Last administered on 09/23/16 20:10; Start 09/22/16 at 21:00; Stop 09/29/16 at 20:59 Multivitamins (Theragram-M) 1 tab DAILY PO Last administered on 09/24/16 08:57 ; Start 09/21/16 at 09:00; Stop 10/21/16 at 08:59 Nicotine (Nicoderm Cq 7 Mg) 1 patch DAILY TD Last administered on 09/23/16 08: 42; Start 09/20/16 at 09:00; Stop 10/20/16 at 08:59 Ondansetron HCl (Zofran) 4 mg Q6HP PRN PO NAUSEA OR VOMITING Last administered on 09/24/16 15:32; Start 09/21/16 at 17:00; Stop 10/21/16 at 16:59 Thiamine HCl (Thiamine HCl) 100 mg DAILY PO Last administered on 09/24/16 08: 57; Start 09/21/16 at 09:00; Stop 10/21/16 at 08:59 Trazodone HCl (Desyrel) 100 mg QHSP PRN PO INSOMNIA Last administered on 23:06; Start 09/20/16 at 17:30; Stop 09/23/16 at 11:00; Status DC Trazodone HCl (Desyrel) 200 mg QHSP PRN PO INSOMNIA Last administered on t 00:22; Start 09/23/16 at 21:00; Stop 10/23/16 at 20:59 Allergies Coded Allergies: No Known Allergies (Unverified , 03/09/15) Cara Millan Sep 24, 2016 17:48
[2016-09-24 17:56] LABS: ALBUMIN/GLOBULIN RATIO 1.25 (1.00-1.93); ALKALINE PHOSPHATASE 74 U/L (45-117); ALT/SGPT 67 U/L (12-78); ANION GAP 3 MEQ/L (8-16); AST/SGOT 24 U/L (15-37); BILIRUBIN,TOTAL 0.7 MG/DL (0.2-1.0); BLOOD UREA NITROGEN 13 MG/DL (7-18); CALCIUM LEVEL 9.5 MG/DL (8.5-10.1); CARBON DIOXIDE LEVEL 33 MEQ/L (21-32); CHLORIDE LEVEL 101 MEQ/L (98-107); CREATININE FOR GFR 0.91 MG/DL (0.70-1.30); GLOMERULAR FILTRATION RATE > 60.0 (>60); GLUCOSE, FASTING 92 MG/DL (70-105); POTASSIUM SERUM 4.6 MEQ/L (3.5-5.1); SODIUM LEVEL 137 MEQ/L (136-145); TOTAL PROTEIN 7.2 GM/DL (6.4-8.2)
[2016-09-24 18:00] VITALS: BP 108/57
[2016-09-24] MEDS ORDERED: OLANZapine ORAL DISINTEGRATING TAB 5MG PO STA (21:46)
[2016-09-25 06:30] VITALS: BP 93/58
[2016-09-25] MEDS: chlordiazePOXIDE 25 MG CAP PO SCH ×2 (09:20→20:40)
[2016-09-25] MEDS: FOLIC ACID 1 MG TAB PO SCH (09:20)
[2016-09-25] MEDS: CitaloPRAM (CeleXA) 20 MG TAB PO SCH (09:20)
[2016-09-25] MEDS: THIAMINE 100 MG TAB PO SCH (09:20)
[2016-09-25] MEDS: MULTIVITAMINS/MINERALS THERAP 1 TAB PO SCH (09:20)
[2016-09-25] MEDS: NICOTINE 7 MG/24 HR TRANSDERMAL TD SCH (09:21)
[2016-09-25] MEDS: ONDANSETRON 4 MG TAB (S0181) PO PRN ×2 (17:30→23:37)
[2016-09-25] MEDS: diphenhydrAMINE 50 MG CAP PO PRN ×2 (17:30→23:36)
[2016-09-25] MEDS: ACETAMINOPHEN TAB 650MG DOSE (2X325MG) PO PRN (17:31)
--- NOTE | 2016-09-25 19:30 | MHIPNPDOC ---
[facility] Progress Note Progress Note DATE OF SERVICE: 09/25/16 HISTORY: Patient is transfer from medical floor after experiencing seizure secondary to polysubstance abuse. Patient was reportedly found by a neighbor after having a seizure during which he was incontinent and bit his tongue, was brought to the ED for evaluation and admitted to medical floor 3 days. Per EMR , patient was also expressing suicidal ideation which patient vehemently denies at this time. Patient has a history of prior admissions, left AMA after being admitted on 09/06/16 for seizures secondary to substance abuse. Environmental Services Project Manager met with patient today to assess treatment progress on unit. Patient was observed to be lying in bed, resistant to speaking with fiction and nonfiction writer prose but communicated anger toward fiction and nonfiction writer prose for reduction in methadone without providing patient with notice. Patient was informed that attempts were made 2 yesterday afternoon to inform him of changes to medication. Patient was able to calm down and engage better with brighter today than yesterday, reported current anxiety level of 5/ 10, depression 5/10, denied suicidal or homicidal ideation, denied auditory or visual hallucinations, denied urge to engage in self-injurious behavior. Patient states he never possessed suicidal ideation and was only admitted to the medical floor for seizures secondary to substance abuse withdrawal. Patient received a 1 time dose of Zyprexa last night due to agitation associated with changes to methadone, states medication was effective. Patient was fully informed of benzodiazepine taper, indicates he is in agreement with continuation of taper in preparation for discharge. Patient describes sleep as "not bad" with trazodone, has utilized Benadryl PRN for intermittent symptoms of anxiety 1 today, states antidepressant is helping to reduce symptoms of depression and anxiety, denies medication side effects. Patient has been attending some groups, and has been visible on the unit in the evenings. Patient reports some improvement to appetite, denies vomiting today and states he has been eating some of his meals, denies difficulty with voiding. Ensure was ordered by admitting provider for patient and patient remains on I and O for monitoring purposes. VITAL SIGNS: See below. NEW TEST RESULTS: No new results. Recently diagnosed with Hep C, history of seizure secondary to substance abuse Labs on admission indicated elevated WBC, neut %, Neut #, glucose, CRP and low lymph %, sodium, chloride, and anion gap 09/18/16 EKG SINUS BRADYCARDIA WITH SINUS ARRHYTHMIA ST ELEVATION, PROBABLY EARLY REPOLARIZATION, CLINICAL CORRELATION DECREASED RATE 09/07/16 UDS positive for opiates, benzodiazepines, cocaine, and cannabinoids 09/19/16 EEG - EEG in awake, drowsy states, stage I and II sleep is within normal limits CURRENT MEDICATIONS: See below. MENTAL STATUS EXAMINATION: Patient is a 30-year old male, who is observed to be lying in bed, does not get up to meet with fiction and nonfiction writer prose for assessment purposes but is more engageable today, makes poor eye contact, is disheveled, dressed in hospital clothing, appears stated age Speech: Is of normal rate, rhythm, volume, spontaneous, coherent Language skills are Intact Thought processes including: Appear linear, logical, goal directed Thought content: Appear logical, rational, goal directed Abstract reasoning, and computation: Require further assessment Description of associations: Intact. Description of abnormal or psychotic thoughts: Denies suicidal or homicidal ideation, denies auditory or visual hallucinations, does not appear to be responding to internal stimuli, does not endorse bizarre or paranoid ideation, denies preoccupation with violence or session, Judgment: Poor Insight: Poor Orientation: A and O X 3 Recent and remote memory: Appear intact Attention span and concentration: Appear intact Language: Adequate Fund of knowledge: Requires further evaluation Mood: "I'm still sick, I'm withdrawal." Patient appears somewhat less anxious and depressed today Affect: Blunted, congruent with mood DIAGNOSES: Unspecified Depressive Disorder, polysubstance use disorder, rule out MDD, rule out substance induced mood disorder, ASSESSMENT: Patient is adjusting to unit slowly, remains isolated to room, reports experiencing withdrawal symptoms, is again encouraged to be visible and participate in unit activities, which apparently he does to an extent in the evening. Patient remains dismissive but is somewhat more engageable today, continues to minimize events, behavior, and substance abuse which led to current hospitalization. Patient has been placed librium and methadone tapers by admitting provider, states he continues to experience symptoms of withdrawal but reports some improvement, states he is in agreement with continuation of Librium taper in preparation for discharge. Follow up clinical consultation completed with recommendation to further taper librium. Patient states trazodone , celexa, and Benadryl are helping to reduce symptoms of anxiety, depression, and improve sleep. Patient states he is consuming Ensure, has been placed on I and O, dietary consult was ordered by previous provider, and nursing will continue to monitor for vomiting/GI distress. Will continue to monitor patient' s response to medications and will monitor for medication side effects. Will evaluate patient safety and discharge readiness. Patient denies current or past suicidal ideation and verbalizes awareness of how to access supportive services on unit if needed. Patient today indicates when prepared for discharge he plans to go live at a friend's house, is agreeable today to participating in outpatient substance abuse treatment and states he will also participate in outpatient psychotherapy and medication management through [facility], remains aware strong recommendation is being made for inpatient substance abuse treatment. MANAGEMENT PLAN: Continue Celexa 20 mg po q am, trazodone 200 mg po hs PRN insomnia, Benadryl 50 mg po q 6 hours PRN anxiety/agitation. Reduce librium to 10 mg po BID with plan to continue taper as tolerated by patient Continue patient on I and O Monitor patient for safety Encourage patient to participate in unit programming Encourage patient to participate in the discharge planning process and involve support system to ensure safe discharge when patient is ready Patient to follow up with PCM upon discharge TIME SPENT: 35 minutes. Vital Signs Vital Signs Date Time Temp Pulse Resp B/P (MAP) Pulse Ox O2 Delivery O2 Flow Rate FiO2 09/25/16 06:30 98.3 60 16 93/58 (70) 09/20/16 22:19 97 Current Medications Current Medications Acetaminophen (Tylenol Tab) 650 mg Q6HP PRN PO HEADACHE or DISCOMFORT Last administered on 09/25/16 17:31; Start 09/20/16 at 17:30; Stop 10/20/16 at 17:29 Al Hydrox/Mg Hydrox/Simethicone (Mylanta) 30 ml Q4HP PRN PO HEARTBURN/ INDIGESTION; Start 09/20/16 at 17:30; Stop 10/20/16 at 17:29 Chlordiazepoxide (Librium) 10 mg BID PO ; Start 09/26/16 at 09:00; Stop at 08:59 Chlordiazepoxide (Librium) 25 mg BID PO Last administered on 09/24/16 08:57; Start 09/22/16 at 21:00; Stop 09/24/16 at 09:44; Status DC Chlordiazepoxide (Librium) 25 mg BID PO Last administered on 09/25/16 09:20; Start 09/24/16 at 21:00; Stop 09/25/16 at 22:00 Chlordiazepoxide (Librium) 25 mg TID PO Last administered on 09/22/16 15:27; Start 09/20/16 at 21:00; Stop 09/22/16 at 15:43; Status DC Chlordiazepoxide (Librium) 25 mg TID PO Last administered on 09/24/16 15:32; Start 09/23/16 at 16:00; Stop 09/24/16 at 17:53; Status DC Citalopram Hydrobromide (CeleXA) 10 mg QAM PO Last administered on 09/23/16 08 :42; Start 09/22/16 at 09:00; Stop 09/23/16 at 15:29; Status DC Citalopram Hydrobromide (CeleXA) 20 mg QAM PO Last administered on 09/25/16 09 :20; Start 09/24/16 at 09:00; Stop 10/24/16 at 08:59 Diphenhydramine HCl (Benadryl) 50 mg Q6HP PRN PO ANXIETY/AGITATION Last administered on 09/25/16 17:30; Start 09/23/16 at 12:00; Stop 10/23/16 at 11:59 Folic Acid (Folic Acid) 1 mg DAILY PO Last administered on 09/25/16 09:20; Start 09/21/16 at 09:00; Stop 10/21/16 at 08:59 Methadone HCl (Dolophine) 5 mg QAM PO Last administered on 09/24/16 08:57; Start 09/23/16 at 09:00; Stop 09/24/16 at 17:58; Status DC Methadone HCl (Dolophine) 10 mg BID PO Last administered on 09/22/16 08:51; Start 09/21/16 at 21:00; Stop 09/22/16 at 15:43; Status DC Methadone HCl (Dolophine) 10 mg QHS PO Last administered on 09/23/16 20:10; Start 09/22/16 at 21:00; Stop 09/24/16 at 17:54; Status DC Multivitamins (Theragram-M) 1 tab DAILY PO Last administered on 09/25/16 09:20 ; Start 09/21/16 at 09:00; Stop 10/21/16 at 08:59 Nicotine (Nicoderm Cq 7 Mg) 1 patch DAILY TD Last administered on 09/25/16 09: 21; Start 09/20/16 at 09:00; Stop 10/20/16 at 08:59 Olanzapine (ZyPREXA ZYDIS) 5 mg STAT STAT PO Last administered on 21:55; Start 09/24/16 at 21:46; Stop 09/24/16 at 21:47; Status DC Ondansetron HCl (Zofran) 4 mg Q6HP PRN PO NAUSEA OR VOMITING Last administered on 09/25/16 17:30; Start 09/21/16 at 17:00; Stop 10/21/16 at 16:59 Thiamine HCl (Thiamine HCl) 100 mg DAILY PO Last administered on 09/25/16 09: 20; Start 09/21/16 at 09:00; Stop 10/21/16 at 08:59 Trazodone HCl (Desyrel) 100 mg QHSP PRN PO INSOMNIA Last administered on 23:06; Start 09/20/16 at 17:30; Stop 09/23/16 at 11:00; Status DC Trazodone HCl (Desyrel) 200 mg QHSP PRN PO INSOMNIA Last administered on 23:45; Start 09/23/16 at 21:00; Stop 10/23/16 at 20:59 Allergies Coded Allergies: No Known Allergies (Unverified , 03/09/15) Cara Millan Sep 25, 2016 19:30
[2016-09-25] MEDS: OLANZapine ORAL DISINTEGRATING TAB 5MG PO PRN (21:23)
[2016-09-25] MEDS: traZODone 100 MG TAB PO PRN (23:37)
[2016-09-26 06:30] VITALS: BP 133/72
[2016-09-26] MEDS: ONDANSETRON 4 MG TAB (S0181) PO PRN ×2 (08:53→15:43)
[2016-09-26] MEDS: FOLIC ACID 1 MG TAB PO SCH (09:28)
[2016-09-26] MEDS: NICOTINE 7 MG/24 HR TRANSDERMAL TD SCH (09:28)
[2016-09-26] MEDS: THIAMINE 100 MG TAB PO SCH (09:28)
[2016-09-26] MEDS: CitaloPRAM (CeleXA) 20 MG TAB PO SCH (09:28)
[2016-09-26] MEDS: MULTIVITAMINS/MINERALS THERAP 1 TAB PO SCH (09:28)
[2016-09-26] MEDS ORDERED: BUPRENORPHINE/NALOXONE 8-2MG SUBLINGUAL TABLET(SUBOXONE) SL ONE ×2 (16:00→17:15)
[2016-09-26 17:07] VITALS: BP 162/66
[2016-09-26 18:00] VITALS: BP 152/90
[2016-09-26] MEDS ORDERED: MOM 30ML SUSPENSION UDC PO PRN (18:00)
--- NOTE | 2016-09-26 18:06 | MHIPNPDOC ---
[facility] Progress Note Progress Note DATE OF SERVICE: 09/26/16 HISTORY: Patient is transfer from medical floor after experiencing seizure secondary to polysubstance abuse. Patient was reportedly found by a neighbor after having a seizure during which he was incontinent and bit his tongue, was brought to the ED for evaluation and admitted to medical floor 3 days. Per EMR , patient was also expressing suicidal ideation which patient vehemently denies at this time. Patient has a history of prior admissions, left AMA after being admitted on 09/06/16 for seizures secondary to substance abuse. Automotive Sales Specialist met with patient today to assess treatment progress on unit. Patient was observed to be lying in bed, resistant to speaking with handbook writer, indicates he has been throwing up today notes he ate some dinner last night has not eaten breakfast. Patient reports anxiety level 8/10, depression 0/10, denies suicidal and homicidal ideation, denies auditory or visual hallucinations, denies urge to engage in self-injurious behavior. Patient has not been attending groups. Patient reports also experiencing symptoms of sweating, shaking and body aches, indicates he remains "dope sick." Patient reiterates today he never possessed suicidal ideation and was only admitted to the medical floor for seizures secondary to substance abuse withdrawal. Patient received a 1 time dose of Zyprexa with good effect reported, denies medication side effects. Patient remains in agreement with continuation of benzodiazepine taper in preparation for discharge. Patient states he has been sleeping well with trazodone, has been utilizing Benadryl PRN for intermittent symptoms of anxiety , indicates antidepressant is helping to reduce symptoms of depression and anxiety, denies medication side effects. Patient was visible on the unit last night, has not been attending groups today. Patient reports worsening of appetite today, increase in symptoms of withdrawal, denies difficulty with voiding. Ensure was ordered by admitting provider for patient and patient remains on I and O for monitoring purposes. Addendum: Clinical consultation sought and recommendation was made for patient to receive Suboxone 8 mg 1 with reevaluation after 1 hour. One hour after receiving Suboxone patient met with handbook writer and attending MD, was observed to have elevated blood pressure, shakiness, GI distress, reported he has not moved his bowel for 1.5 weeks, reported pain to right abdominal area and back, indicated he experiencing pain with urination. Abdominal ultrasound ordered and nursing has been asked to ensure that patient is reevaluated by nurse practitioner as soon as possible. Recommendation also made to not make dosing adjustment to Librium taper today, will evaluate patient inability to tolerate continuation of taper tomorrow. PRN clonidine and stool softener ordered. VITAL SIGNS: See below. NEW TEST RESULTS: No new results. Recently diagnosed with Hep C, history of seizure secondary to substance abuse Labs on admission indicated elevated WBC, neut %, Neut #, glucose, CRP and low lymph %, sodium, chloride, and anion gap 09/18/16 EKG SINUS BRADYCARDIA WITH SINUS ARRHYTHMIA ST ELEVATION, PROBABLY EARLY REPOLARIZATION, CLINICAL CORRELATION DECREASED RATE 09/07/16, clinical consultation sought, recommendation follow-up with outpatient provider UDS positive for opiates, benzodiazepines, cocaine, and cannabinoids 09/19/16 EEG - EEG in awake, drowsy states, stage I and II sleep is within normal limits CURRENT MEDICATIONS: See below. MENTAL STATUS EXAMINATION: Patient is a 30-year old male, who is observed to be lying in bed, does not get up to meet with handbook writer for assessment purposes but less engageable today, makes poor eye contact, is disheveled, dressed in hospital clothing, appears stated age Speech: Is of normal rate, rhythm, volume, spontaneous, coherent Language skills are Intact Thought processes including: Appear linear, logical, goal directed Thought content: Appear logical, rational, goal directed Abstract reasoning, and computation: Require further assessment Description of associations: Intact. Description of abnormal or psychotic thoughts: Denies suicidal or homicidal ideation, denies auditory or visual hallucinations, does not appear to be responding to internal stimuli, does not endorse bizarre or paranoid ideation, denies preoccupation with violence or session, Judgment: Poor Insight: Poor Orientation: A and O X 3 Recent and remote memory: Appear intact Attention span and concentration: Appear intact Language: Adequate Fund of knowledge: Requires further evaluation Mood: "I'm still sick, I'm dope sick." Patient appears somewhat less anxious and depressed today, no mood lability noted Affect: Blunted, congruent with mood DIAGNOSES: Unspecified Depressive Disorder, polysubstance use disorder, rule out MDD, rule out substance induced mood disorder, ASSESSMENT: Patient is adjusting to unit slowly, remains isolated to room, reports experiencing withdrawal symptoms, is again encouraged to be visible and participate in unit activities, which apparently he does to an extent in the evening. Patient remains dismissive, continues to minimize events, behavior, and substance abuse which led to current hospitalization. Patient remains on librium taper, states he continues to experience symptoms of withdrawal, remains in agreement with continuation of Librium taper in preparation for discharge. Follow up clinical consultation completed with recommendation to further taper librium. Patient states trazodone, celexa, and Benadryl are helping to reduce symptoms of anxiety, depression, and improve sleep. Patient has been placed on I and O, dietary consult was ordered by previous provider, and nursing will continue to monitor vomiting/GI distress. Will continue to monitor patient's response to medications and will monitor for medication side effects. Will evaluate patient safety and discharge readiness. Patient denies current or past suicidal ideation and verbalizes awareness of how to access supportive services on unit if needed. Patient today reiterates when prepared for discharge he plans to go live at a friend's house, is agreeable today to participating in outpatient substance abuse treatment and states he will also participate in outpatient psychotherapy and medication management through [facility], remains aware strong recommendation is being made for inpatient substance abuse treatment which she is declining. MANAGEMENT PLAN: Continue Celexa 20 mg po q am, trazodone 200 mg po hs PRN insomnia, Benadryl 50 mg po q 6 hours PRN anxiety/agitation. Continue librium 10 mg po BID with plan to reevaluate patient tolerance for taper continuation tomorrow. Patient received Suboxone 8 mg 1, post evaluation receive second dose Continue patient on I and O Monitor patient for safety Encourage patient to participate in unit programming Encourage patient to participate in the discharge planning process and involve support system to ensure safe discharge when patient is ready Patient to follow up with PCM upon discharge TIME SPENT: 35 minutes. Vital Signs Vital Signs Date Time Temp Pulse Resp B/P (MAP) Pulse Ox O2 Delivery O2 Flow Rate FiO2 09/26/16 17:07 99.3 92 18 162/66 (98) 09/20/16 22:19 97 Current Medications Current Medications Acetaminophen (Tylenol Tab) 650 mg Q6HP PRN PO HEADACHE or DISCOMFORT Last administered on 09/25/16t 17:31; Start 09/20/16 at 17:30; Stop 10/20/16 at 17:29 Al Hydrox/Mg Hydrox/Simethicone (Mylanta) 30 ml Q4HP PRN PO HEARTBURN/ INDIGESTION; Start 09/20/16 at 17:30; Stop 10/20/16 at 17:29 Chlordiazepoxide (Librium) 10 mg BID PO Last administered on 09/26/16 09:28; Start 09/26/16 at 09:00; Stop 10/03/16 at 08:59 Chlordiazepoxide (Librium) 25 mg BID PO Last administered on 09/24/16 08:57; Start 09/22/16 at 21:00; Stop 09/24/16 at 09:44; Status DC Chlordiazepoxide (Librium) 25 mg BID PO Last administered on 09/25/16 20:40; Start 09/24/16 at 21:00; Stop 09/25/16 at 22:00; Status DC Chlordiazepoxide (Librium) 25 mg TID PO Last administered on 09/22/16 15:27; Start 09/20/16 at 21:00; Stop 09/22/16 at 15:43; Status DC Chlordiazepoxide (Librium) 25 mg TID PO Last administered on 09/24/16 15:32; Start 09/23/16 at 16:00; Stop 09/24/16 at 17:53; Status DC Citalopram Hydrobromide (CeleXA) 10 mg QAM PO Last administered on 09/23/16 08 :42; Start 09/22/16 at 09:00; Stop 09/23/16 at 15:29; Status DC Citalopram Hydrobromide (CeleXA) 20 mg QAM PO Last administered on 09/26/16 09 :28; Start 09/24/16 at 09:00; Stop 10/24/16 at 08:59 Clonidine HCl (Catapres) 0.1 mg Q8H PRN PO opiate withdrawals; Start 09/26/16 at 17:15; Stop 10/26/16 at 17:14 Diphenhydramine HCl (Benadryl) 50 mg Q6HP PRN PO ANXIETY/AGITATION Last administered on 09/25/16 23:36; Start 09/23/16 at 12:00; Stop 10/23/16 at 11:59 Folic Acid (Folic Acid) 1 mg DAILY PO Last administered on 09/26/16 09:28; Start 09/21/16 at 09:00; Stop 10/21/16 at 08:59 Methadone HCl (Dolophine) 5 mg QAM PO Last administered on 09/24/16 08:57; Start 09/23/16 at 09:00; Stop 09/24/16 at 17:58; Status DC Methadone HCl (Dolophine) 10 mg BID PO Last administered on 09/22/16 08:51; Start 09/21/16 at 21:00; Stop 09/22/16 at 15:43; Status DC Methadone HCl (Dolophine) 10 mg QHS PO Last administered on 09/23/16 20:10; Start 09/22/16 at 21:00; Stop 09/24/16 at 17:54; Status DC Multivitamins (Theragram-M) 1 tab DAILY PO Last administered on 09/26/16 09:28 ; Start 09/21/16 at 09:00; Stop 10/21/16 at 08:59 Nicotine (Nicoderm Cq 7 Mg) 1 patch DAILY TD Last administered on 09/26/16 09: 28; Start 09/20/16 at 09:00; Stop 10/20/16 at 08:59 Olanzapine (ZyPREXA ZYDIS) 5 mg Q6HP PRN PO ANXIETY/AGITATION Last administered on 09/25/16 21:23; Start 09/25/16 at 21:15; Stop 10/25/16 at 21:14 Olanzapine (ZyPREXA ZYDIS) 5 mg STAT STAT PO Last administered on 21:55; Start 09/24/16 at 21:46; Stop 09/24/16 at 21:47; Status DC Ondansetron HCl (Zofran) 4 mg Q6HP PRN PO NAUSEA OR VOMITING Last administered on 09/26/16 15:43; Start 09/21/16 at 17:00; Stop 10/21/16 at 16:59 Thiamine HCl (Thiamine HCl) 100 mg DAILY PO Last administered on 09/26/16 09: 28; Start 09/21/16 at 09:00; Stop 10/21/16 at 08:59 Trazodone HCl (Desyrel) 100 mg QHSP PRN PO INSOMNIA Last administered on 23:06; Start 09/20/16 at 17:30; Stop 09/23/16 at 11:00; Status DC Trazodone HCl (Desyrel) 200 mg QHSP PRN PO INSOMNIA Last administered on 23:37; Start 09/23/16 at 21:00; Stop 10/23/16 at 20:59 Allergies Coded Allergies: No Known Allergies (Unverified , 03/09/15) Cara Millan Sep 26, 2016 18:06
[2016-09-26] MEDS: cloNIDine 0.1 MG TAB PO PRN (19:25)
[2016-09-26] MEDS: ACETAMINOPHEN TAB 650MG DOSE (2X325MG) PO PRN (21:00)
[2016-09-26] MEDS: diphenhydrAMINE 50 MG CAP PO PRN (21:01)
[2016-09-26] MEDS: DOCUSATE SODIUM 100 MG CAP PO SCH (21:01)
[2016-09-26] MEDS: traZODone 100 MG TAB PO PRN (23:19)
[2016-09-27 06:41] VITALS: BP 90/47
[2016-09-27] MEDS: FOLIC ACID 1 MG TAB PO SCH (08:25)
[2016-09-27] MEDS: CitaloPRAM (CeleXA) 20 MG TAB PO SCH (08:25)
[2016-09-27] MEDS: MULTIVITAMINS/MINERALS THERAP 1 TAB PO SCH (08:25)
[2016-09-27] MEDS: DOCUSATE SODIUM 100 MG CAP PO SCH ×2 (08:25→21:38)
[2016-09-27] MEDS: cloNIDine 0.1 MG TAB PO PRN ×2 (08:27→17:44)
[2016-09-27] MEDS: NICOTINE 7 MG/24 HR TRANSDERMAL TD SCH (08:28)
[2016-09-27] MEDS: THIAMINE 100 MG TAB PO SCH (08:28)
[2016-09-27] MEDS: diphenhydrAMINE 50 MG CAP PO PRN ×2 (08:28→17:44)
--- NOTE | 2016-09-27 09:20 | MHIPNPDOC ---
[facility] Progress Note Progress Note DATE OF SERVICE: 09/27/16 HISTORY: Patient is transfer from medical floor after experiencing seizure secondary to polysubstance abuse. Patient was reportedly found by a neighbor after having a seizure during which he was incontinent and bit his tongue, was brought to the ED for evaluation and admitted to medical floor 3 days. Per EMR , patient was also expressing suicidal ideation which patient vehemently denies at this time. Patient has a history of prior admissions, left AMA after being admitted on 09/06/16 for seizures secondary to substance abuse. Swing Tender met with patient today to assess treatment progress on unit. Patient was observed to be up out of bed and visible on unit in morning, was lying in bed at time of interaction, able to sit up and engage with ad copy writer for assessment purposes. Patient indicated he is feeling "better," reports noticeably reduced symptoms of withdrawal, reported current anxiety level of 2/10, depression 2/10 , denied suicidal or homicidal ideation, denied auditory or visual hallucinations, denied urge to engage in self-injurious behavior. Patient states he consumed ensure this morning and was able to eat part of his dinner last night, reports improvement to intake, denies vomiting. Patient reports improvement in energy level, states he slept well last night, reports improvement to concentration and focus, registers no new concerns related to voiding, indicates he is utilizing PRN medications to address constipation. Patient expresses concern regarding not having any more Suboxone prescribed after receiving medication yesterday, verbalizes awareness that he has clonidine available to him, in addition to other PRN medications which he has been using, and was encouraged to continue to utilize PRN medications if needed. Patient is aware that staff will provide ongoing monitoring and that he is to report symptoms of withdrawal should symptoms become unmanageable. Patient was provided with update on Librium taper and verbalizes agreement that taper will continue tomorrow should it be deemed appropriate by weekend psychiatrist. Patient states Celexa is helping to reduce symptoms of depression and anxiety and trazodone is effective for sleep. Patient denies medication side effects. Patient presents with no signs of acute distress at time of interaction. On 09/26/16 nursing was asked to ensure the patient was evaluated by PA as soon as possible yesterday, per EMR does not appear evaluation was done, nursing was again asked to monitor patient and ensure that patient is evaluated by PA YING. Nursing was also instructed that should patient complain of abdominal discomfort on-call/hospitalist may need to be contacted for further evaluation. Abdominal ultrasound has been ordered, patient to be NPO tonight after midnight. VITAL SIGNS: See below. NEW TEST RESULTS: No new results. Recently diagnosed with Hep C, history of seizure secondary to substance abuse Labs on admission indicated elevated WBC, neut %, Neut #, glucose, CRP and low lymph %, sodium, chloride, and anion gap 09/18/16 EKG SINUS BRADYCARDIA WITH SINUS ARRHYTHMIA ST ELEVATION, PROBABLY EARLY REPOLARIZATION, CLINICAL CORRELATION DECREASED RATE 09/07/16, clinical consultation sought, recommendation follow-up with outpatient provider UDS positive for opiates, benzodiazepines, cocaine, and cannabinoids 09/19/16 EEG - EEG in awake, drowsy states, stage I and II sleep is within normal limits Abdominal ultrasound pending CURRENT MEDICATIONS: See below. MENTAL STATUS EXAMINATION: Patient is a 30-year old male, who is generally pleasant and cooperative, noticeably more easily engaged today, makes improved eye contact, has tended to his ADLs, is dressed in hospital clothing, ambulates with steady gait, appears stated age Speech: Is of normal rate, rhythm, volume, spontaneous, coherent Language skills are Intact Thought processes including: Appear linear, logical, goal directed Thought content: Appear logical, rational, goal directed Abstract reasoning, and computation: Require further assessment Description of associations: Intact. Description of abnormal or psychotic thoughts: Denies suicidal or homicidal ideation, denies auditory or visual hallucinations, does not appear to be responding to internal stimuli, does not endorse bizarre or paranoid ideation, denies preoccupation with violence or session, Judgment: Poor Insight: Poor Orientation: A and O X 3 Recent and remote memory: Appear intact Attention span and concentration: Appear intact Language: Adequate Fund of knowledge: Requires further evaluation Mood: "I'm feeling better today, am I going to get any more Suboxone if the withdrawal symptoms get bad again?" Patient appears noticeably less anxious and depressed today, no mood lability noted Affect: Constricted, brightens at times, congruent with mood DIAGNOSES: Unspecified Depressive Disorder, polysubstance use disorder, rule out MDD, rule out substance induced mood disorder, ASSESSMENT: Patient is continues to adjust to unit, has been attending groups, has been more visible today, is engaging selectively with peers, has been more pleasant and cooperative with staff, and has presented with no behavior management challenges. Patient was encouraged to continue to participate in unit programming. Patient expresses increased insight regard to minimization of events, substance abuse, and behavior which led to his current hospitalization. Patient remains on Librium taper, states he is experiencing noticeably reduced symptoms of withdrawal, remains in agreement with continuation of Librium taper to be evaluated by weekend psychiatrist tomorrow. Patient indicates balance of medication regimen is effective and denies medication side effects, continues to utilize PRN medications to address symptoms of anxiety, withdrawal symptoms, and to improve sleep. Patient remains on I and O, reports improvement intake, and nursing will continue to monitor vomiting/GI distress. Will continue to monitor patient's response to medications, withdrawal symptoms, and will monitor for medication side effects. Will evaluate patient safety and discharge readiness. Patient denies current or past suicidal ideation and verbalizes awareness of how to access supportive services on unit if needed. Patient today reiterates when prepared for discharge he plans to go live at a friend's house, remains agreeable to participating in outpatient substance abuse treatment and states he will also participate in outpatient psychotherapy and medication management through [facility]. Patient is aware that strong recommendation is being made for him to transfer to inpatient substance abuse treatment. MANAGEMENT PLAN: Continue Celexa 20 mg po q am, trazodone 200 mg po hs PRN insomnia, Benadryl 50 mg po q 6 hours PRN anxiety/agitation. Continue librium 10 mg po BID with plan to reevaluate patient tolerance for taper continuation Friday. Continue clonidine 0.1 mg po q 8 hours PRN withdrawal symptoms and Zyprexa 5 mg po q 6 hours PRN anxiety/agitation Abdominal ultrasound ordered Continue patient on I and O Monitor patient for safety Encourage patient to participate in unit programming Encourage patient to participate in the discharge planning process and involve support system to ensure safe discharge when patient is ready Patient to follow up with PCM upon discharge TIME SPENT: 35 minutes. Vital Signs Vital Signs Date Time Temp Pulse Resp B/P (MAP) Pulse Ox O2 Delivery O2 Flow Rate FiO2 09/27/16 08:27 108/65 09/27/16 06:41 98.1 54 18 Current Medications Current Medications Acetaminophen (Tylenol Tab) 650 mg Q6HP PRN PO HEADACHE or DISCOMFORT Last administered on 09/26/16t 21:00; Start 09/20/16 at 17:30; Stop 10/20/16 at 17:29 Al Hydrox/Mg Hydrox/Simethicone (Mylanta) 30 ml Q4HP PRN PO HEARTBURN/ INDIGESTION Last administered on 09/26/16 17:47; Start 09/20/16 at 17:30; Stop 10/20/16 at 17:29 Chlordiazepoxide (Librium) 10 mg BID PO Last administered on 09/27/16 08:25; Start 09/26/16 at 09:00; Stop 10/03/16 at 08:59 Chlordiazepoxide (Librium) 25 mg BID PO Last administered on 09/24/16 08:57; Start 09/22/16 at 21:00; Stop 09/24/16 at 09:44; Status DC Chlordiazepoxide (Librium) 25 mg BID PO Last administered on 09/25/16 20:40; Start 09/24/16 at 21:00; Stop 09/25/16 at 22:00; Status DC Chlordiazepoxide (Librium) 25 mg TID PO Last administered on 09/22/16 15:27; Start 09/20/16 at 21:00; Stop 09/22/16 at 15:43; Status DC Chlordiazepoxide (Librium) 25 mg TID PO Last administered on 09/24/16 15:32; Start 09/23/16 at 16:00; Stop 09/24/16 at 17:53; Status DC Citalopram Hydrobromide (CeleXA) 10 mg QAM PO Last administered on 09/23/16 08 :42; Start 09/22/16 at 09:00; Stop 09/23/16 at 15:29; Status DC Citalopram Hydrobromide (CeleXA) 20 mg QAM PO Last administered on 09/27/16 08 :25; Start 09/24/16 at 09:00; Stop 10/24/16 at 08:59 Clonidine HCl (Catapres) 0.1 mg Q8H PRN PO opiate withdrawals Last administered on 09/27/16 08:27; Start 09/26/16 at 17:15; Stop 10/26/16 at 17:14 Diphenhydramine HCl (Benadryl) 50 mg Q6HP PRN PO ANXIETY/AGITATION Last administered on 09/27/16 08:28; Start 09/23/16 at 12:00; Stop 10/23/16 at 11:59 Docusate Sodium (Colace) 100 mg BID PO Last administered on 09/27/16 08:25; Start 09/26/16 at 21:00; Stop 10/26/16 at 20:59 Folic Acid (Folic Acid) 1 mg DAILY PO Last administered on 09/27/16 08:25; Start 09/21/16 at 09:00; Stop 10/21/16 at 08:59 Magnesium Hydroxide (Milk Of Magnesia) 30 ml DAILYPRN PRN PO CONSTIPATION; Start 09/26/16 at 18:00; Stop 10/26/16 at 17:59 Methadone HCl (Dolophine) 5 mg QAM PO Last administered on 09/24/16 08:57; Start 09/23/16 at 09:00; Stop 09/24/16 at 17:58; Status DC Methadone HCl (Dolophine) 10 mg BID PO Last administered on 09/22/16 08:51; Start 09/21/16 at 21:00; Stop 09/22/16 at 15:43; Status DC Methadone HCl (Dolophine) 10 mg QHS PO Last administered on 09/23/16 20:10; Start 09/22/16 at 21:00; Stop 09/24/16 at 17:54; Status DC Multivitamins (Theragram-M) 1 tab DAILY PO Last administered on 09/27/16 08:25 ; Start 09/21/16 at 09:00; Stop 10/21/16 at 08:59 Nicotine (Nicoderm Cq 7 Mg) 1 patch DAILY TD Last administered on 09/27/16 08: 28; Start 09/20/16 at 09:00; Stop 10/20/16 at 08:59 Olanzapine (ZyPREXA ZYDIS) 5 mg Q6HP PRN PO ANXIETY/AGITATION Last administered on 09/25/16 21:23; Start 09/25/16 at 21:15; Stop 10/25/16 at 21:14 Olanzapine (ZyPREXA ZYDIS) 5 mg STAT STAT PO Last administered on 21:55; Start 09/24/16 at 21:46; Stop 09/24/16 at 21:47; Status DC Ondansetron HCl (Zofran) 4 mg Q6HP PRN PO NAUSEA OR VOMITING Last administered on 09/26/16 15:43; Start 09/21/16 at 17:00; Stop 10/21/16 at 16:59 Thiamine HCl (Thiamine HCl) 100 mg DAILY PO Last administered on 09/27/16 08: 28; Start 09/21/16 at 09:00; Stop 10/21/16 at 08:59 Trazodone HCl (Desyrel) 100 mg QHSP PRN PO INSOMNIA Last administered on 23:06; Start 09/20/16 at 17:30; Stop 09/23/16 at 11:00; Status DC Trazodone HCl (Desyrel) 200 mg QHSP PRN PO INSOMNIA Last administered on 23:19; Start 09/23/16 at 21:00; Stop 10/23/16 at 20:59 Allergies Coded Allergies: No Known Allergies (Unverified , 03/09/15) Cara Millan Sep 27, 2016 09:20
[2016-09-27] MEDS: OLANZapine ORAL DISINTEGRATING TAB 5MG PO PRN (17:44)
[2016-09-27] MEDS: ONDANSETRON 4 MG TAB (S0181) PO PRN (17:59)
[2016-09-27 18:00] VITALS: BP 109/54
[2016-09-27 21:00] VITALS: BP 124/68
[2016-09-27] MEDS: ACETAMINOPHEN TAB 650MG DOSE (2X325MG) PO PRN (21:39)
[2016-09-27] MEDS: traZODone 100 MG TAB PO PRN (22:06)
[2016-09-28 06:00] VITALS: BP 90/53
[2016-09-28] MEDS: OLANZapine ORAL DISINTEGRATING TAB 5MG PO PRN ×2 (09:06→20:47)
[2016-09-28] MEDS: CitaloPRAM (CeleXA) 20 MG TAB PO SCH (09:07)
[2016-09-28] MEDS: cloNIDine 0.1 MG TAB PO PRN ×2 (09:07→20:47)
[2016-09-28] MEDS: FOLIC ACID 1 MG TAB PO SCH (09:07)
[2016-09-28] MEDS: DOCUSATE SODIUM 100 MG CAP PO SCH ×2 (09:08→20:47)
[2016-09-28] MEDS: diphenhydrAMINE 50 MG CAP PO PRN ×2 (09:08→20:47)
[2016-09-28] MEDS: NICOTINE 7 MG/24 HR TRANSDERMAL TD SCH (09:08)
[2016-09-28] MEDS: THIAMINE 100 MG TAB PO SCH (09:08)
[2016-09-28] MEDS: MULTIVITAMINS/MINERALS THERAP 1 TAB PO SCH (09:08)
--- NOTE | 2016-09-28 10:26 | REP ---
ABDOMEN ULTRASOUND COMPLETE: 09/28/2016 COMPARISON: Limited abdominal ultrasound 09/07/2016, CT abdomen pelvis 01/01/2015. CLINICAL HISTORY: Abdominal pain and distension, constipation, hepatitis C. Findings: Sonographic evaluation of the liver shows to be homogeneous in echotexture and not enlarged. There is no focal hepatic mass, intrahepatic biliary dilatation nor perihepatic ascites. Gallbladder is contracted with munson up to 3.4 mm. No visible stones within the gallbladder. No pericholecystic fluid. The patient states appropriate fast overnight. Common duct is 1.8 mm without a common duct stone or filling defect visible. There is no evidence of a sonographic Britton's sign on this evaluation. Pancreas is unremarkable. The spleen has a maximum length of 9.5 cm. There is a 1.4 x 1.3 cm isoechoic focus adjacent to the spleen consistent with a splenule or accessory spleen near the hilum. The right kidney is 10.6 x 5.4 x 4.5 cm and the left kidney 10.3 x 4.8 x 6.3 cm. Neither shows stone, hydronephrosis or mass. The aorta is unremarkable. There is no free fluid in the abdomen. IMPRESSION: 1. No hepatosplenomegaly, focal hepatic or splenic lesion, generalized ascites or abnormality of the common duct, pancreas, kidneys or spleen. 2. The gallbladder is contracted but has no visible stones, pericholecystic fluid or sonographic Britton sign. The patient reports a overnight fast for this examination. No gallbladder wall thickening or pericholecystic fluid in the right upper quadrant ultrasound 3 weeks ago. therefore, I doubt chronic cholecystitis. Signed by Mao Flores MD 09/28/2016 07:51 P
[2016-09-28 18:00] VITALS: BP 112/62
[2016-09-28] MEDS: ACETAMINOPHEN TAB 650MG DOSE (2X325MG) PO PRN (20:51)
[2016-09-28] MEDS: traZODone 100 MG TAB PO PRN (20:51)
[2016-09-28 22:34] VITALS: BP 110/58
[2016-09-29 06:00] VITALS: BP 118/64
[2016-09-29] MEDS: DOCUSATE SODIUM 100 MG CAP PO SCH ×2 (09:23→20:52)
[2016-09-29] MEDS: THIAMINE 100 MG TAB PO SCH (09:23)
[2016-09-29] MEDS: FOLIC ACID 1 MG TAB PO SCH (09:23)
[2016-09-29] MEDS: CitaloPRAM (CeleXA) 20 MG TAB PO SCH (09:23)
[2016-09-29] MEDS: cloNIDine 0.1 MG TAB PO PRN ×2 (09:23→20:53)
[2016-09-29] MEDS: diphenhydrAMINE 50 MG CAP PO PRN (09:23)
[2016-09-29] MEDS: MULTIVITAMINS/MINERALS THERAP 1 TAB PO SCH (09:23)
[2016-09-29] MEDS: OLANZapine ORAL DISINTEGRATING TAB 5MG PO PRN ×2 (09:24→20:52)
[2016-09-29] MEDS: ACETAMINOPHEN TAB 650MG DOSE (2X325MG) PO PRN (09:24)
[2016-09-29] MEDS: NICOTINE 7 MG/24 HR TRANSDERMAL TD SCH (09:24)
--- NOTE | 2016-09-29 09:41 | IPN ---
DATE OF SERVICE: 09/28/2016 Evaluated 30-year-old male who was transferred from the medical floor after he experienced a seizure secondary to polysubstance abuse. The patient was reportedly found by a neighbor after having a seizure during which he was incontinent and bit his tongue. Was brought to the emergency room for evaluation and admitted to the medical floor for 3 days. Per electronic medical record (EMR) and per history, the patient also was experiencing suicidal ideation, but the patient has denied this at this time. Log Sorting Supervisor met with the patient and primary care provider on Friday and afternoon because the patient was having problems with withdrawal. Today, he reports that he continues to be in withdrawals, and he says that he felt better yesterday, 09/27/2016. He reports sweating, nausea, shakes, and body aches. He denies suicidal ideation. Denies homicidal ideations. Denies auditory and visual hallucinations, but he reports that he is constipated despite having taken laxative. He also has requested to be given another dose of buprenorphine, and this rewriter has told him it is not possible at this time. He will have to continue withdrawing and asking for clonidine as needed for withdrawal symptoms. The patient continues to complain of withdrawals, and he has undergone several different studies for his abdominal pain and body aches. Currently, he is on Librium 10 mg by mouth twice a day, Celexa 20 mg by mouth every morning, clonidine 0.1 mg by mouth every 8 hours as needed for opiate withdrawals, Benadryl 50 mg by mouth every 6 hours as needed for anxiety and agitation. He is on a nicotine patch 7 mg per 24 hours one patch a day, olanzapine disintegrating or Zydis 5 mg by mouth every 6 hours as needed for anxiety and agitation, ondansetron or Zofran 4 mg by mouth every 6 hours as needed for nausea or vomiting, and he is also on thiamine 100 mg by mouth daily and folic acid 1 mg by mouth daily. He is on Colace 100 mg by mouth twice a day for constipation, and he is on trazodone 200 mg by mouth nightly as needed for insomnia. The patient's vital signs were stable. For that reason, this rewriter did not quite believe that he was having withdrawal symptoms. This rewriter did not want to give him any other medication because he was seeking buprenorphine and also ibuprofen. He will be monitored closely and will followup tomorrow, 09/29/2016. At this time, the patient seemed to be stable, not suicidal, and not homicidal. Not in danger to self or others.
[2016-09-29 18:00] VITALS: BP 117/70
[2016-09-29] MEDS: ONDANSETRON 4 MG TAB (S0181) PO PRN (20:52)
[2016-09-29] MEDS: traZODone 100 MG TAB PO PRN (22:11)
[2016-09-30 06:16] VITALS: BP 106/61
[2016-09-30] MEDS: NICOTINE 7 MG/24 HR TRANSDERMAL TD SCH (09:00)
[2016-09-30] MEDS: MULTIVITAMINS/MINERALS THERAP 1 TAB PO SCH (09:07)
[2016-09-30] MEDS: cloNIDine 0.1 MG TAB PO PRN ×2 (09:07→18:07)
[2016-09-30] MEDS: FOLIC ACID 1 MG TAB PO SCH (09:07)
[2016-09-30] MEDS: OLANZapine ORAL DISINTEGRATING TAB 5MG PO PRN ×2 (09:07→18:06)
[2016-09-30] MEDS: THIAMINE 100 MG TAB PO SCH (09:07)
[2016-09-30] MEDS: CitaloPRAM (CeleXA) 20 MG TAB PO SCH (09:07)
[2016-09-30] MEDS: DOCUSATE SODIUM 100 MG CAP PO SCH ×2 (09:07→20:47)
--- NOTE | 2016-09-30 09:09 | MHIPNPDOC ---
[facility] Progress Note Progress Note DATE OF SERVICE: 09/30/16 HISTORY: Patient is transfer from medical floor after experiencing seizure secondary to polysubstance abuse. Patient was reportedly found by a neighbor after having a seizure during which he was incontinent and bit his tongue, was brought to the ED for evaluation and admitted to medical floor 3 days. Per EMR , patient was also expressing suicidal ideation which patient vehemently denies at this time. Patient has a history of prior admissions, left AMA after being admitted on 09/06/16 for seizures secondary to substance abuse. Hose Tubing Backer met with patient today to assess treatment progress on unit. Patient was observed to be lying in bed, registered complaints related to withdrawal symptoms but noted "I feel better than I did," makes no request for Suboxone today, states he has been utilizing clonidine PRN with good effect reported. Patient reports current anxiety level of 5/10, depression 5/10, denies suicidal or homicidal ideation, denies auditory or visual hallucinations, denies urge to engage in self-injurious behavior. Patient indicates he has been eating and denies vomiting, reports improvement to appetite. Patient reports improvement in energy level, states he slept well last night, reports improvement to concentration and focus, registers no new concerns related to voiding, indicates he is utilizing PRN medications to address constipation. Patient is aware that staff will provide ongoing monitoring and that he is to report symptoms of withdrawal should symptoms become unmanageable. Patient indicates he feels prepared to continue with Librium taper in preparation for discharge. Patient states he feels little difference in terms of depression since starting Celexa, denies medication side effects. Patient states trazodone is effective for sleep. Patient denies symptoms of pain and presents with no signs of acute distress at time of interaction. VITAL SIGNS: See below. NEW TEST RESULTS: No new results. Recently diagnosed with Hep C, history of seizure secondary to substance abuse Labs on admission indicated elevated WBC, neut %, Neut #, glucose, CRP and low lymph %, sodium, chloride, and anion gap 09/18/16 EKG SINUS BRADYCARDIA WITH SINUS ARRHYTHMIA ST ELEVATION, PROBABLY EARLY REPOLARIZATION, CLINICAL CORRELATION DECREASED RATE 09/07/16, clinical consultation sought, recommendation follow-up with outpatient provider UDS positive for opiates, benzodiazepines, cocaine, and cannabinoids 09/19/16 EEG - EEG in awake, drowsy states, stage I and II sleep is within normal limits 09/28/16 Abdominal ultrasound findings: 1. No hepatosplenomegaly, focal hepatic or splenic lesion, generalized ascites or abnormality of the common duct, pancreas, kidneys or spleen. 2. The gallbladder is contracted but has no visible stones, pericholecystic fluid or sonographic Britton sign. The patient reports a overnight fast for this examination. No gallbladder wall thickening or pericholecystic fluid in the right upper quadrant ultrasound 3 weeks ago. therefore, I doubt chronic cholecystitis. Clinical consultation sought CURRENT MEDICATIONS: See below. MENTAL STATUS EXAMINATION: Patient is a 30-year old male, who is generally pleasant and cooperative, noticeably more easily engaged today, makes improved eye contact, appears somewhat disheveled, is dressed in hospital clothing, ambulates with steady gait , appears stated age Speech: Is of normal rate, rhythm, volume, spontaneous, coherent Language skills are Intact Thought processes including: Appear linear, logical, goal directed Thought content: Appear logical, rational, goal directed Abstract reasoning, and computation: Require further assessment Description of associations: Intact. Description of abnormal or psychotic thoughts: Denies suicidal or homicidal ideation, denies auditory or visual hallucinations, does not appear to be responding to internal stimuli, does not endorse bizarre or paranoid ideation, denies preoccupation with violence or session, Judgment: Limited, some improvement noted during treatment Insight: Limited, some improvement noted during treatment Orientation: A and O X 3 Recent and remote memory: Appear intact Attention span and concentration: Appear intact Language: Adequate Fund of knowledge: Limited Mood: "I'm better than I was, still depressed." Patient appears noticeably less anxious today, continues to state he feels depressed, no mood lability noted Affect: Constricted, brightens at times, congruent with mood DIAGNOSES: Unspecified Depressive Disorder, polysubstance use disorder, rule out MDD, rule out substance induced mood disorder, ASSESSMENT: Patient is continues to adjust to unit, has been attending groups, has been more visible today, is engaging selectively with peers, has been more pleasant and cooperative with staff, and has presented with no behavior management challenges. Patient was encouraged to continue to participate in unit programming. Patient expresses increased insight regard to minimization of events, substance abuse, and behavior which led to his current hospitalization. Patient remains on Librium taper, states he is experiencing reduced symptoms of withdrawal, remains in agreement with continuation of Librium taper in preparation for discharge. Patient indicates balance of medication regimen remains effective and denies medication side effects, continues to utilize PRN medications to address symptoms of anxiety, withdrawal symptoms, and to improve sleep. Patient remains on I and O, reports improvement intake, denies vomiting or symptoms of GI distress. Will continue to monitor patient's response to medications, withdrawal symptoms, and will monitor for medication side effects. Will evaluate patient safety and discharge readiness. Patient denies current or past suicidal ideation and verbalizes awareness of how to access supportive services on unit if needed. Patient today states he is interested in being referred for inpatient substance abuse treatment, however, notes he wants to discharge to home so that he may attend to "personal affairs" prior to going to rehabilitation. Patient indicates he lives with a friend who is a mother figure , states if he does not go to inpatient treatment he would like to participate in follow-up psychotherapy, substance abuse, and medication management through [facility]. Patient remained aware that strong recommendation is being made for him to transfer to inpatient substance abuse treatment. MANAGEMENT PLAN: Increase Celexa to 40 mg po q am. Reduce librium to 10 mg po q am and 5 mg po q hs with plan to continue taper as tolerated by patient. Continue trazodone 200 mg po hs PRN insomnia, Benadryl 50 mg po q 6 hours PRN anxiety/agitation, clonidine 0.1 mg po q 8 hours PRN withdrawal symptoms, and Zyprexa 5 mg po q 6 hours PRN anxiety/agitation Patient remains on I and O Monitor patient for safety Encourage patient to participate in unit programming Encourage patient to participate in the discharge planning process and involve support system to ensure safe discharge when patient is ready Patient to follow up with PCM upon discharge TIME SPENT: 35 minutes. Vital Signs Vital Signs Date Time Temp Pulse Resp B/P (MAP) Pulse Ox O2 Delivery O2 Flow Rate FiO2 09/30/16 06:16 98.6 54 16 106/61 (76) Room Air Current Medications Current Medications Acetaminophen (Tylenol Tab) 650 mg Q6HP PRN PO HEADACHE or DISCOMFORT Last administered on 09/29/16 09:24; Start 09/20/16 at 17:30; Stop 10/20/16 at 17:29 Al Hydrox/Mg Hydrox/Simethicone (Mylanta) 30 ml Q4HP PRN PO HEARTBURN/ INDIGESTION Last administered on 09/26/16 17:47; Start 09/20/16 at 17:30; Stop 10/20/16 at 17:29 Chlordiazepoxide (Librium) 10 mg BID PO Last administered on 09/29/16 20:52; Start 09/26/16 at 09:00; Stop 10/03/16 at 08:59 Chlordiazepoxide (Librium) 25 mg BID PO Last administered on 09/24/16 08:57; Start 09/22/16 at 21:00; Stop 09/24/16 at 09:44; Status DC Chlordiazepoxide (Librium) 25 mg BID PO Last administered on 09/25/16 20:40; Start 09/24/16 at 21:00; Stop 09/25/16 at 22:00; Status DC Chlordiazepoxide (Librium) 25 mg TID PO Last administered on 09/22/16 15:27; Start 09/20/16 at 21:00; Stop 09/22/16 at 15:43; Status DC Chlordiazepoxide (Librium) 25 mg TID PO Last administered on 09/24/16 15:32; Start 09/23/16 at 16:00; Stop 09/24/16 at 17:53; Status DC Citalopram Hydrobromide (CeleXA) 10 mg QAM PO Last administered on 09/23/16 08 :42; Start 09/22/16 at 09:00; Stop 09/23/16 at 15:29; Status DC Citalopram Hydrobromide (CeleXA) 20 mg QAM PO Last administered on 09/29/16 09 :23; Start 09/24/16 at 09:00; Stop 10/24/16 at 08:59 Clonidine HCl (Catapres) 0.1 mg Q8H PRN PO opiate withdrawals Last administered on 09/29/16 20:53; Start 09/26/16 at 17:15; Stop 10/26/16 at 17:14 Diphenhydramine HCl (Benadryl) 50 mg Q6HP PRN PO ANXIETY/AGITATION Last administered on 09/29/16 09:23; Start 09/23/16 at 12:00; Stop 10/23/16 at 11:59 Docusate Sodium (Colace) 100 mg BID PO Last administered on 09/29/16 20:52; Start 09/26/16 at 21:00; Stop 10/26/16 at 20:59 Folic Acid (Folic Acid) 1 mg DAILY PO Last administered on 09/29/16 09:23; Start 09/21/16 at 09:00; Stop 10/21/16 at 08:59 Magnesium Hydroxide (Milk Of Magnesia) 30 ml DAILYPRN PRN PO CONSTIPATION Last administered on 09/27/16 18:33; Start 09/26/16 at 18:00; Stop 10/26/16 at 17:59 Methadone HCl (Dolophine) 5 mg QAM PO Last administered on 09/24/16 08:57; Start 09/23/16 at 09:00; Stop 09/24/16 at 17:58; Status DC Methadone HCl (Dolophine) 10 mg BID PO Last administered on 09/22/16 08:51; Start 09/21/16 at 21:00; Stop 09/22/16 at 15:43; Status DC Methadone HCl (Dolophine) 10 mg QHS PO Last administered on 09/23/16 20:10; Start 09/22/16 at 21:00; Stop 09/24/16 at 17:54; Status DC Multivitamins (Theragram-M) 1 tab DAILY PO Last administered on 09/29/16 09:23 ; Start 09/21/16 at 09:00; Stop 10/21/16 at 08:59 Nicotine (Nicoderm Cq 7 Mg) 1 patch DAILY TD Last administered on 09/29/16 09: 24; Start 09/20/16 at 09:00; Stop 10/20/16 at 08:59 Olanzapine (ZyPREXA ZYDIS) 5 mg Q6HP PRN PO ANXIETY/AGITATION Last administered on 09/29/16 20:52; Start 09/25/16 at 21:15; Stop 10/25/16 at 21:14 Olanzapine (ZyPREXA ZYDIS) 5 mg STAT STAT PO Last administered on 21:55; Start 09/24/16 at 21:46; Stop 09/24/16 at 21:47; Status DC Ondansetron HCl (Zofran) 4 mg Q6HP PRN PO NAUSEA OR VOMITING Last administered on 09/29/16 20:52; Start 09/21/16 at 17:00; Stop 10/21/16 at 16:59 Thiamine HCl (Thiamine HCl) 100 mg DAILY PO Last administered on 09/29/16 09: 23; Start 09/21/16 at 09:00; Stop 10/21/16 at 08:59 Trazodone HCl (Desyrel) 100 mg QHSP PRN PO INSOMNIA Last administered on 23:06; Start 09/20/16 at 17:30; Stop 09/23/16 at 11:00; Status DC Trazodone HCl (Desyrel) 200 mg QHSP PRN PO INSOMNIA Last administered on 22:11; Start 09/23/16 at 21:00; Stop 10/23/16 at 20:59 Allergies Coded Allergies: No Known Allergies (Unverified , 03/09/15) Cara Millan Sep 30, 2016 09:09
[2016-09-30] MEDS: ONDANSETRON 4 MG TAB (S0181) PO PRN (18:06)
[2016-09-30 18:26] VITALS: BP 112/78
[2016-09-30] MEDS: diphenhydrAMINE 50 MG CAP PO PRN (20:46)
[2016-09-30] MEDS: ACETAMINOPHEN TAB 650MG DOSE (2X325MG) PO PRN (20:47)
[2016-09-30] MEDS: traZODone 100 MG TAB PO PRN (21:12)
[2016-09-30] MEDS ORDERED: QUEtiapine FUMARATE 50 MG TAB PO ONE (23:30)
[2016-10-01 06:35] VITALS: BP 104/56
[2016-10-01] MEDS: NICOTINE 7 MG/24 HR TRANSDERMAL TD SCH (08:26)
[2016-10-01] MEDS: FOLIC ACID 1 MG TAB PO SCH (08:29)
[2016-10-01] MEDS: MULTIVITAMINS/MINERALS THERAP 1 TAB PO SCH (08:30)
[2016-10-01] MEDS: cloNIDine 0.1 MG TAB PO PRN (08:30)
[2016-10-01] MEDS: CitaloPRAM (CeleXA) 20 MG TAB PO SCH (08:30)
[2016-10-01] MEDS: OLANZapine ORAL DISINTEGRATING TAB 5MG PO PRN ×2 (08:30→23:21)
[2016-10-01] MEDS: THIAMINE 100 MG TAB PO SCH (08:30)
[2016-10-01] MEDS: DOCUSATE SODIUM 100 MG CAP PO SCH ×2 (08:30→21:10)
[2016-10-01 11:38] VITALS: BP 100/56
[2016-10-01 18:16] VITALS: BP 144/75
--- NOTE | 2016-10-01 19:00 | MHIPNPDOC ---
[facility] Progress Note Progress Note DATE OF SERVICE: 10/01/16 HISTORY: Patient is transfer from medical floor after experiencing seizure secondary to polysubstance abuse. Patient was reportedly found by a neighbor after having a seizure during which he was incontinent and bit his tongue, was brought to the ED for evaluation and admitted to medical floor 3 days. Per EMR , patient was also expressing suicidal ideation which patient vehemently denies at this time. Patient has a history of prior admissions, left AMA after being admitted on 09/06/16 for seizures secondary to substance abuse. Sales Order Coordinator met with patient today to assess treatment progress on unit. Patient was observed to be lying in bed, registered complaints related to withdrawal symptoms but indicates he continues to feel better, inquires as to time frame for discharge. Sales Order Coordinator and patient spoke at length today regarding need for patient to be visible and up out of bed, participating in unit activities and having less need for use of multiple PRN medications to address symptoms of withdrawal. In addition patient was informed he will need to have completed Librium taper and be stable prior to discharge. Patient was advised to be out of bed during the day so that he will sleep at night. Patient makes no request for Suboxone today, indicates he continues to experience intermittent symptoms of "achiness," is aware he has medication available to him to address symptoms. Patient reports current anxiety level of 5/10, depression 5/10, denies suicidal or homicidal ideation, denies auditory or visual hallucinations, denies urge to engage in self-injurious behavior. Patient indicates he has been eating and denies vomiting, reports improvement to appetite. Patient reports improvement in energy level, denies challenges with sleep, reports improvement to concentration and focus, indicates he is been voiding without problems. Patient is aware that staff will provide ongoing monitoring and that he is to report symptoms of withdrawal should symptoms become unmanageable. Patient indicates he feels prepared to continue with Librium taper in preparation for discharge. Patient informs expert medical writer today that he feels recent dose increase to Celexa is helping to reduce symptoms of depression, denies medication side effects. Patient states trazodone remains effective for sleep, then notes he requested Seroquel last night for sleep, is able to verbalize that he then could not get up out of bed this morning, has been encouraged to utilize Benadryl if anxious and alternate means to induce sleep so that he will be able to get up out of bed tomorrow morning to be visible on the unit and participate in unit programming. Patient denies symptoms of pain and presents with no signs of acute distress at time of interaction. VITAL SIGNS: See below. NEW TEST RESULTS: No new results. Recently diagnosed with Hep C, history of seizure secondary to substance abuse Labs on admission indicated elevated WBC, neut %, Neut #, glucose, CRP and low lymph %, sodium, chloride, and anion gap 09/18/16 EKG SINUS BRADYCARDIA WITH SINUS ARRHYTHMIA ST ELEVATION, PROBABLY EARLY REPOLARIZATION, CLINICAL CORRELATION DECREASED RATE 09/07/16, clinical consultation sought, recommendation follow-up with outpatient provider UDS positive for opiates, benzodiazepines, cocaine, and cannabinoids 09/19/16 EEG - EEG in awake, drowsy states, stage I and II sleep is within normal limits 09/28/16 Abdominal ultrasound findings: 1. No hepatosplenomegaly, focal hepatic or splenic lesion, generalized ascites or abnormality of the common duct, pancreas, kidneys or spleen. 2. The gallbladder is contracted but has no visible stones, pericholecystic fluid or sonographic Britton sign. The patient reports a overnight fast for this examination. No gallbladder wall thickening or pericholecystic fluid in the right upper quadrant ultrasound 3 weeks ago. therefore, I doubt chronic cholecystitis. Clinical consultation sought, recommendation made for follow-up with outpatient provider. CURRENT MEDICATIONS: See below. MENTAL STATUS EXAMINATION: Patient is a 30-year old male, who is generally pleasant and cooperative, more easily engaged today, makes improved eye contact, appears less disheveled, is dressed in hospital clothing, ambulates with steady gait, appears stated age Speech: Is of normal rate, rhythm, volume, spontaneous, coherent Language skills are Intact Thought processes including: Appear linear, logical, goal directed Thought content: Appear logical, rational, goal directed Abstract reasoning, and computation: Require further assessment Description of associations: Intact. Description of abnormal or psychotic thoughts: Denies suicidal or homicidal ideation, denies auditory or visual hallucinations, does not appear to be responding to internal stimuli, does not endorse bizarre or paranoid ideation, denies preoccupation with violence or session, Judgment: Limited, some improvement noted during treatment Insight: Limited, some improvement noted during treatment Orientation: A and O X 3 Recent and remote memory: Appear intact Attention span and concentration: Appear intact Language: Adequate Fund of knowledge: Limited Mood: "I'm feeling better than I was, less depressed." Patient appears less anxious and depressed today, no mood lability noted Affect: Constricted, brightens at times, congruent with mood DIAGNOSES: Unspecified Depressive Disorder, polysubstance use disorder, rule out MDD, rule out substance induced mood disorder, ASSESSMENT: Patient is continues to adjust to unit, has been attending groups, has been more visible today, is engaging selectively with peers, has been more pleasant and cooperative with staff, and has presented with no behavior management challenges. Patient was encouraged to continue to participate in unit programming. Patient remains on Librium taper, indicates he is in agreement with continuing taper with discontinuation tomorrow. Patient states he is experiencing reduced symptoms of withdrawal, has been using PRN medications with reduced frequency. Patient indicates medication regimen remains effective and denies medication side effects. Patient remains on I and O , reports improvement intake, denies vomiting or symptoms of GI distress. Will continue to monitor patient's response to medications, withdrawal symptoms, and will monitor for medication side effects. Will evaluate patient safety and discharge readiness. Patient denies current or past suicidal ideation and verbalizes awareness of how to access supportive services on unit if needed. Patient today states he is no longer interested in being referred for inpatient substance abuse treatment, states he now wants to discharge to home and attend outpatient substance abuse treatment at [facility] and participate in psychotherapy and medication management services through [facility]. Sales Order Coordinator attempted to encourage patient to enter inpatient substance abuse treatment, has educated patient on the risks of his continuing to engage in substance abuse, including seizure, coma, , patient verbalizes understanding. Patient is also refusing to sign an PRICILLA's for contact with family/friends other than the friend with whom he lives and refers to as a mother figure. Patient remained aware that strong recommendation is being made for him to transfer to inpatient substance abuse treatment. MANAGEMENT PLAN: Continue Celexa 40 mg po q am. Reduce librium to 5 mg po BID for today, reduced to 5 mg po q a.m. tomorrow, then discontinue. Continue trazodone 200 mg po hs PRN insomnia, Benadryl 50 mg po q 6 hours PRN anxiety/ agitation, clonidine 0.1 mg po q 8 hours PRN withdrawal symptoms, and Zyprexa 5 mg po q 6 hours PRN anxiety/agitation Patient remains on I and O Monitor patient for safety Encourage patient to participate in unit programming Encourage patient to participate in the discharge planning process and involve support system to ensure safe discharge when patient is ready Patient to follow up with PCM upon discharge TIME SPENT: 35 minutes. Vital Signs Vital Signs Date Time Temp Pulse Resp B/P (MAP) Pulse Ox O2 Delivery O2 Flow Rate FiO2 10/01/16 18:16 98.0 89 18 144/75 (98) 09/30/16 06:16 Room Air Current Medications Current Medications Acetaminophen (Tylenol Tab) 650 mg Q6HP PRN PO HEADACHE or DISCOMFORT Last administered on 09/30/16 20:47; Start 09/20/16 at 17:30; Stop 10/20/16 at 17:29 Al Hydrox/Mg Hydrox/Simethicone (Mylanta) 30 ml Q4HP PRN PO HEARTBURN/ INDIGESTION Last administered on 09/26/16 17:47; Start 09/20/16 at 17:30; Stop 10/20/16 at 17:29 Chlordiazepoxide (Librium) 5 mg BID PO Last administered on 10/01/16 08:29; Start 09/30/16 at 21:00; Stop 10/02/16 at 11:00 Chlordiazepoxide (Librium) 10 mg BID PO Last administered on 09/30/16 09:07; Start 09/26/16 at 09:00; Stop 09/30/16 at 15:11; Status DC Chlordiazepoxide (Librium) 25 mg BID PO Last administered on 09/24/16 08:57; Start 09/22/16 at 21:00; Stop 09/24/16 at 09:44; Status DC Chlordiazepoxide (Librium) 25 mg BID PO Last administered on 09/25/16 20:40; Start 09/24/16 at 21:00; Stop 09/25/16 at 22:00; Status DC Chlordiazepoxide (Librium) 25 mg TID PO Last administered on 09/22/16 15:27; Start 09/20/16 at 21:00; Stop 09/22/16 at 15:43; Status DC Chlordiazepoxide (Librium) 25 mg TID PO Last administered on 09/24/16 15:32; Start 09/23/16 at 16:00; Stop 09/24/16 at 17:53; Status DC Citalopram Hydrobromide (CeleXA) 10 mg QAM PO Last administered on 09/23/16 08 :42; Start 09/22/16 at 09:00; Stop 09/23/16 at 15:29; Status DC Citalopram Hydrobromide (CeleXA) 20 mg QAM PO Last administered on 09/30/16 09 :07; Start 09/24/16 at 09:00; Stop 09/30/16 at 15:11; Status DC Citalopram Hydrobromide (CeleXA) 40 mg QAM PO Last administered on 10/01/16 08 :30; Start 10/01/16 at 09:00; Stop 10/31/16 at 08:59 Clonidine HCl (Catapres) 0.1 mg Q8H PRN PO opiate withdrawals Last administered on 10/01/16 08:30; Start 09/26/16 at 17:15; Stop 10/26/16 at 17:14 Diphenhydramine HCl (Benadryl) 50 mg Q6HP PRN PO ANXIETY/AGITATION Last administered on 09/30/16 20:46; Start 09/23/16 at 12:00; Stop 10/23/16 at 11:59 Docusate Sodium (Colace) 100 mg BID PO Last administered on 10/01/16 08:30; Start 09/26/16 at 21:00; Stop 10/26/16 at 20:59 Folic Acid (Folic Acid) 1 mg DAILY PO Last administered on 10/01/16 08:29; Start 09/21/16 at 09:00; Stop 10/21/16 at 08:59 Magnesium Hydroxide (Milk Of Magnesia) 30 ml DAILYPRN PRN PO CONSTIPATION Last administered on 09/27/16 18:33; Start 09/26/16 at 18:00; Stop 10/26/16 at 17:59 Methadone HCl (Dolophine) 5 mg QAM PO Last administered on 09/24/16 08:57; Start 09/23/16 at 09:00; Stop 09/24/16 at 17:58; Status DC Methadone HCl (Dolophine) 10 mg BID PO Last administered on 09/22/16 08:51; Start 09/21/16 at 21:00; Stop 09/22/16 at 15:43; Status DC Methadone HCl (Dolophine) 10 mg QHS PO Last administered on 09/23/16 20:10; Start 09/22/16 at 21:00; Stop 09/24/16 at 17:54; Status DC Multivitamins (Theragram-M) 1 tab DAILY PO Last administered on 10/01/16 08:30 ; Start 09/21/16 at 09:00; Stop 10/21/16 at 08:59 Nicotine (Nicoderm Cq 7 Mg) 1 patch DAILY TD Last administered on 09/29/16 09: 24; Start 09/20/16 at 09:00; Stop 10/20/16 at 08:59 Olanzapine (ZyPREXA ZYDIS) 5 mg Q6HP PRN PO ANXIETY/AGITATION Last administered on 10/01/16 08:30; Start 09/25/16 at 21:15; Stop 10/25/16 at 21:14 Olanzapine (ZyPREXA ZYDIS) 5 mg STAT STAT PO Last administered on 21:55; Start 09/24/16 at 21:46; Stop 09/24/16 at 21:47; Status DC Ondansetron HCl (Zofran) 4 mg Q6HP PRN PO NAUSEA OR VOMITING Last administered on 09/30/16 18:06; Start 09/21/16 at 17:00; Stop 10/21/16 at 16:59 Thiamine HCl (Thiamine HCl) 100 mg DAILY PO Last administered on 10/01/16 08: 30; Start 09/21/16 at 09:00; Stop 10/21/16 at 08:59 Trazodone HCl (Desyrel) 100 mg QHSP PRN PO INSOMNIA Last administered on 23:06; Start 09/20/16 at 17:30; Stop 09/23/16 at 11:00; Status DC Trazodone HCl (Desyrel) 200 mg QHSP PRN PO INSOMNIA Last administered on 21:12; Start 09/23/16 at 21:00; Stop 10/23/16 at 20:59 Allergies Coded Allergies: No Known Allergies (Unverified , 03/09/15) Cara Millan Oct 01, 2016 19:00
[2016-10-01] MEDS: traZODone 100 MG TAB PO PRN (22:48)
[2016-10-01] MEDS: diphenhydrAMINE 50 MG CAP PO PRN (23:21)
[2016-10-01] MEDS: ONDANSETRON 4 MG TAB (S0181) PO PRN (23:21)
[2016-10-02 06:36] VITALS: BP 128/59
[2016-10-02] MEDS: CitaloPRAM (CeleXA) 20 MG TAB PO SCH (08:49)
[2016-10-02] MEDS: FOLIC ACID 1 MG TAB PO SCH (08:49)
[2016-10-02] MEDS: MULTIVITAMINS/MINERALS THERAP 1 TAB PO SCH (08:49)
[2016-10-02] MEDS: DOCUSATE SODIUM 100 MG CAP PO SCH ×2 (08:49→21:30)
[2016-10-02] MEDS: THIAMINE 100 MG TAB PO SCH (08:49)
[2016-10-02] MEDS: NICOTINE 7 MG/24 HR TRANSDERMAL TD SCH (08:49)
--- NOTE | 2016-10-02 09:09 | MHIPNPDOC ---
[facility] Progress Note Progress Note DATE OF SERVICE: 10/02/16 HISTORY: Patient is transfer from medical floor after experiencing seizure secondary to polysubstance abuse. Patient was reportedly found by a neighbor after having a seizure during which he was incontinent and bit his tongue, was brought to the ED for evaluation and admitted to medical floor 3 days. Per EMR , patient was also expressing suicidal ideation which patient vehemently denies at this time. Patient has a history of prior admissions, left AMA after being admitted on 09/06/16 for seizures secondary to substance abuse. Register Of Wills met with patient today to assess treatment progress on unit. Patient was observed to be lying in bed, registered mild complaints related to withdrawal symptoms and stated he feels better and was "just resting between groups." Register Of Wills and patient spoke at length again today regarding need for patient to be visible and up out of bed, participating in unit activities and having less need for use of multiple PRN medications to address symptoms of withdrawal in preparation for discharge. Patient has completed Librium taper, denies symptoms of craving or withdrawal. Sleep hygiene was discussed with patient who is able to verbalize he is having difficulty sleeping at night due to being in bed all day, was encouraged to be up out of bed during day and in bed only at night and to utilize when necessary medications if needed to address nighttime anxiety. Patient reports current anxiety level of 5/10, depression 4/10, denies suicidal or homicidal ideation, denies auditory or visual hallucinations, denies urge to engage in self-injurious behavior. Patient states Celexa is helpful in reducing symptoms of anxiety and depression, and eyes medication side effects. Patient indicates he has been eating and denies vomiting, reports improvement to appetite. Patient reports improvement in energy level, reports improvement to concentration and focus, indicates he is been voiding without problems, states he has been attending to his ADLs. Patient denies symptoms of pain and presents with no signs of acute distress at time of interaction. VITAL SIGNS: See below. NEW TEST RESULTS: No new results. Recently diagnosed with Hep C, history of seizure secondary to substance abuse Labs on admission indicated elevated WBC, neut %, Neut #, glucose, CRP and low lymph %, sodium, chloride, and anion gap 09/18/16 EKG SINUS BRADYCARDIA WITH SINUS ARRHYTHMIA ST ELEVATION, PROBABLY EARLY REPOLARIZATION, CLINICAL CORRELATION DECREASED RATE 09/07/16, clinical consultation sought, recommendation follow-up with outpatient provider UDS positive for opiates, benzodiazepines, cocaine, and cannabinoids 09/19/16 EEG - EEG in awake, drowsy states, stage I and II sleep is within normal limits 09/28/16 Abdominal ultrasound findings: 1. No hepatosplenomegaly, focal hepatic or splenic lesion, generalized ascites or abnormality of the common duct, pancreas, kidneys or spleen. 2. The gallbladder is contracted but has no visible stones, pericholecystic fluid or sonographic Britton sign. The patient reports a overnight fast for this examination. No gallbladder wall thickening or pericholecystic fluid in the right upper quadrant ultrasound 3 weeks ago. therefore, I doubt chronic cholecystitis. Clinical consultation sought, recommendation made for follow-up with outpatient provider. CURRENT MEDICATIONS: See below. MENTAL STATUS EXAMINATION: Patient is a 30-year old male, who is generally pleasant and cooperative, more easily engaged today, makes improved eye contact, appears less disheveled, is dressed in hospital clothing, ambulates with steady gait, appears stated age Speech: Is of normal rate, rhythm, volume, spontaneous, coherent Language skills are Intact Thought processes including: Appear linear, logical, goal directed Thought content: Appear logical, rational, goal directed Abstract reasoning, and computation: Require further assessment Description of associations: Intact. Description of abnormal or psychotic thoughts: Denies suicidal or homicidal ideation, denies auditory or visual hallucinations, does not appear to be responding to internal stimuli, does not endorse bizarre or paranoid ideation, denies preoccupation with violence or session, Judgment: Limited, some improvement noted during treatment Insight: Limited, some improvement noted during treatment Orientation: A and O X 3 Recent and remote memory: Appear intact Attention span and concentration: Appear intact Language: Adequate Fund of knowledge: Limited Mood: "I'm feeling better than I was, less depressed, I'm going to get out of bed and I've been going to groups." Patient appears less anxious and depressed today, no mood lability noted Affect: Constricted, brightens at times, congruent with mood DIAGNOSES: Unspecified Depressive Disorder, polysubstance use disorder, rule out MDD, rule out substance induced mood disorder, ASSESSMENT: Patient is continues to adjust to unit, has been attending most groups, has been more visible today, is engaging selectively with peers, has been more pleasant and cooperative with staff, and has presented with no behavior management challenges. Patient was encouraged to continue to participate in unit programming. Patient has completed Librium taper, states he is experiencing minimal symptoms of withdrawal, has been using PRN medications with reduced frequency. Patient indicates medication regimen remains effective and denies medication side effects. Patient remains on I and O, reports improvement to intake, denies vomiting or symptoms of GI distress. Will continue to monitor patient's response to medications and will monitor for medication side effects. Will also continue to evaluate patient safety and discharge readiness. Patient denies current or past suicidal ideation and verbalizes awareness of how to access supportive services on unit if needed. Patient reiterates today he is no longer interested in being referred for inpatient substance abuse treatment, states he wants to discharge to home and attend outpatient substance abuse treatment at [facility] and participate in psychotherapy and medication management services through [facility]. Register Of Wills again attempted to encourage patient to enter inpatient substance abuse treatment, re- educated patient on the risks of his continuing to engage in substance abuse, and has also educated patient on the risk of combining prescribed medications with illicit drug use, patient verbalizes understanding. Patient is also continuing to refuse to sign an PRICILLA's for contact with family/friends other than the friend with whom he lives and refers to as a mother figure. Patient remained aware that strong recommendation is being made for him to transfer to inpatient substance abuse treatment. MANAGEMENT PLAN: Continue Celexa 40 mg po q am. Discontinue Librium. Continue trazodone 200 mg po hs PRN insomnia, Benadryl 50 mg po q 6 hours PRN anxiety/ agitation, clonidine 0.1 mg po q 8 hours PRN withdrawal symptoms, and Zyprexa 5 mg po q 6 hours PRN anxiety/agitation Patient remains on I and O Monitor patient for safety Encourage patient to participate in unit programming Encourage patient to participate in the discharge planning process and involve support system to ensure safe discharge when patient is ready Patient to follow up with PCM upon discharge TIME SPENT: 35 minutes. Vital Signs Vital Signs Date Time Temp Pulse Resp B/P (MAP) Pulse Ox O2 Delivery O2 Flow Rate FiO2 10/02/16 06:36 97.1 54 16 128/59 (82) 09/30/16 06:16 Room Air Current Medications Current Medications Acetaminophen (Tylenol Tab) 650 mg Q6HP PRN PO HEADACHE or DISCOMFORT Last administered on 09/30/16t 20:47; Start 09/20/16 at 17:30; Stop 10/20/16 at 17:29 Al Hydrox/Mg Hydrox/Simethicone (Mylanta) 30 ml Q4HP PRN PO HEARTBURN/ INDIGESTION Last administered on 09/26/16 17:47; Start 09/20/16 at 17:30; Stop 10/20/16 at 17:29 Chlordiazepoxide (Librium) 5 mg BID PO Last administered on 10/02/16 08:49; Start 09/30/16 at 21:00; Stop 10/02/16 at 11:00 Chlordiazepoxide (Librium) 10 mg BID PO Last administered on 09/30/16 09:07; Start 09/26/16 at 09:00; Stop 09/30/16 at 15:11; Status DC Chlordiazepoxide (Librium) 25 mg BID PO Last administered on 09/24/16 08:57; Start 09/22/16 at 21:00; Stop 09/24/16 at 09:44; Status DC Chlordiazepoxide (Librium) 25 mg BID PO Last administered on 09/25/16 20:40; Start 09/24/16 at 21:00; Stop 09/25/16 at 22:00; Status DC Chlordiazepoxide (Librium) 25 mg TID PO Last administered on 09/22/16 15:27; Start 09/20/16 at 21:00; Stop 09/22/16 at 15:43; Status DC Chlordiazepoxide (Librium) 25 mg TID PO Last administered on 09/24/16 15:32; Start 09/23/16 at 16:00; Stop 09/24/16 at 17:53; Status DC Citalopram Hydrobromide (CeleXA) 10 mg QAM PO Last administered on 09/23/16 08 :42; Start 09/22/16 at 09:00; Stop 09/23/16 at 15:29; Status DC Citalopram Hydrobromide (CeleXA) 20 mg QAM PO Last administered on 09/30/16 09 :07; Start 09/24/16 at 09:00; Stop 09/30/16 at 15:11; Status DC Citalopram Hydrobromide (CeleXA) 40 mg QAM PO Last administered on 10/02/16 08 :49; Start 10/01/16 at 09:00; Stop 10/31/16 at 08:59 Clonidine HCl (Catapres) 0.1 mg Q8H PRN PO opiate withdrawals Last administered on 10/01/16 08:30; Start 09/26/16 at 17:15; Stop 10/26/16 at 17:14 Diphenhydramine HCl (Benadryl) 50 mg Q6HP PRN PO ANXIETY/AGITATION Last administered on 10/01/16 23:21; Start 09/23/16 at 12:00; Stop 10/23/16 at 11:59 Docusate Sodium (Colace) 100 mg BID PO Last administered on 10/02/16 08:49; Start 09/26/16 at 21:00; Stop 10/26/16 at 20:59 Folic Acid (Folic Acid) 1 mg DAILY PO Last administered on 10/02/16 08:49; Start 09/21/16 at 09:00; Stop 10/21/16 at 08:59 Magnesium Hydroxide (Milk Of Magnesia) 30 ml DAILYPRN PRN PO CONSTIPATION Last administered on 09/27/16 18:33; Start 09/26/16 at 18:00; Stop 10/26/16 at 17:59 Methadone HCl (Dolophine) 5 mg QAM PO Last administered on 09/24/16 08:57; Start 09/23/16 at 09:00; Stop 09/24/16 at 17:58; Status DC Methadone HCl (Dolophine) 10 mg BID PO Last administered on 09/22/16 08:51; Start 09/21/16 at 21:00; Stop 09/22/16 at 15:43; Status DC Methadone HCl (Dolophine) 10 mg QHS PO Last administered on 09/23/16 20:10; Start 09/22/16 at 21:00; Stop 09/24/16 at 17:54; Status DC Multivitamins (Theragram-M) 1 tab DAILY PO Last administered on 10/02/16 08:49 ; Start 09/21/16 at 09:00; Stop 10/21/16 at 08:59 Nicotine (Nicoderm Cq 7 Mg) 1 patch DAILY TD Last administered on 10/02/16 08: 49; Start 09/20/16 at 09:00; Stop 10/20/16 at 08:59 Olanzapine (ZyPREXA ZYDIS) 5 mg Q6HP PRN PO ANXIETY/AGITATION Last administered on 10/01/16 23:21; Start 09/25/16 at 21:15; Stop 10/25/16 at 21:14 Olanzapine (ZyPREXA ZYDIS) 5 mg STAT STAT PO Last administered on 21:55; Start 09/24/16 at 21:46; Stop 09/24/16 at 21:47; Status DC Ondansetron HCl (Zofran) 4 mg Q6HP PRN PO NAUSEA OR VOMITING Last administered on 10/01/16 23:21; Start 09/21/16 at 17:00; Stop 10/21/16 at 16:59 Thiamine HCl (Thiamine HCl) 100 mg DAILY PO Last administered on 10/02/16 08: 49; Start 09/21/16 at 09:00; Stop 10/21/16 at 08:59 Trazodone HCl (Desyrel) 100 mg QHSP PRN PO INSOMNIA Last administered on 23:06; Start 09/20/16 at 17:30; Stop 09/23/16 at 11:00; Status DC Trazodone HCl (Desyrel) 200 mg QHSP PRN PO INSOMNIA Last administered on 22:48; Start 09/23/16 at 21:00; Stop 10/23/16 at 20:59 Allergies Coded Allergies: No Known Allergies (Unverified , 03/09/15) Cara Millan Oct 02, 2016 09:09
[2016-10-02] MEDS: diphenhydrAMINE 50 MG CAP PO PRN ×2 (11:35→23:24)
[2016-10-02] MEDS: OLANZapine ORAL DISINTEGRATING TAB 5MG PO PRN (11:35)
[2016-10-02 12:09] VITALS: BP 137/73
[2016-10-02 18:09] VITALS: BP 118/72
[2016-10-02] MEDS: ACETAMINOPHEN TAB 650MG DOSE (2X325MG) PO PRN (19:03)
[2016-10-02 20:00] VITALS: BP 126/70
[2016-10-02] MEDS: traZODone 100 MG TAB PO PRN (22:21)
[2016-10-03] MEDS: OLANZapine ORAL DISINTEGRATING TAB 5MG PO PRN (00:45)
[2016-10-03] MEDS: ACETAMINOPHEN TAB 650MG DOSE (2X325MG) PO PRN ×2 (05:18→19:02)
[2016-10-03 06:43] VITALS: BP 138/98
[2016-10-03] MEDS: DOCUSATE SODIUM 100 MG CAP PO SCH ×2 (08:58→21:44)
[2016-10-03] MEDS: MULTIVITAMINS/MINERALS THERAP 1 TAB PO SCH (08:59)
[2016-10-03] MEDS: NICOTINE 7 MG/24 HR TRANSDERMAL TD SCH (08:59)
[2016-10-03] MEDS: FOLIC ACID 1 MG TAB PO SCH (08:59)
[2016-10-03] MEDS: CitaloPRAM (CeleXA) 20 MG TAB PO SCH (08:59)
[2016-10-03] MEDS: THIAMINE 100 MG TAB PO SCH (08:59)
--- NOTE | 2016-10-03 09:04 | MHIPNPDOC ---
[facility] Progress Note Progress Note DATE OF SERVICE: 10/03/16 HISTORY: Patient is transfer from medical floor after experiencing seizure secondary to polysubstance abuse. Patient was reportedly found by a neighbor after having a seizure during which he was incontinent and bit his tongue, was brought to the ED for evaluation and admitted to medical floor 3 days. Per EMR , patient was also expressing suicidal ideation which patient vehemently denies at this time. Patient has a history of prior admissions, left AMA after being admitted on 09/06/16 for seizures secondary to substance abuse. Community Advocate met with patient today to assess treatment progress on unit. Patient was observed to be lying in bed, but had been attending groups, denies symptoms of craving or withdrawal and reports improvement to anxiety and depression, today reporting 3/10 anxiety, 2/10 depression, notes symptoms are related to "I'm concerned about my stuff being stolen, I talked to the woman that I live with and she said some kidded stolen my work tools." Patient denies suicidal or homicidal ideation, denies auditory or visual hallucinations, and denies urge to engage in self-injurious behavior. Patient has been more visible, attending groups and has been up out of bed with increased frequency, is engageable, expresses humor at times. Patient has not been utilizing PRN medications with exception for sleep, is agreeable to changing zydis PRN to standing nighttime Zyprexa dosing, states trazodone remains helpful. Patient indicates Celexa remains effective in reducing symptoms of anxiety and depression. Patient denies medication side effects. Patient indicates he has been eating and denies vomiting, reports improvement to appetite. Patient reports improvement in energy level, reports improvement to concentration and focus, indicates he is been voiding without problems, states he has been attending to his ADLs. Patient denies symptoms of pain and presents with no signs of acute distress at time of interaction. Patient continues to deny referral to inpatient substance abuse treatment. VITAL SIGNS: See below. NEW TEST RESULTS: No new results. MEDICAL/SURGICAL HISTORY: Recently diagnosed with hep C, history of seizures secondary to substance abuse Labs on admission indicated elevated WBC, neut %, Neut #, glucose, CRP and low lymph %, sodium, chloride, and anion gap 09/18/16 EKG SINUS BRADYCARDIA WITH SINUS ARRHYTHMIA ST ELEVATION, PROBABLY EARLY REPOLARIZATION, CLINICAL CORRELATION DECREASED RATE 09/07/16, clinical consultation sought, recommendation follow-up with outpatient provider. Patient has been informed of need for follow up and is asymptomatic. UDS positive for opiates, benzodiazepines, cocaine, and cannabinoids 09/19/16 EEG - EEG in awake, drowsy states, stage I and II sleep is within normal limits 09/28/16 Abdominal ultrasound findings: 1. No hepatosplenomegaly, focal hepatic or splenic lesion, generalized ascites or abnormality of the common duct, pancreas, kidneys or spleen. 2. The gallbladder is contracted but has no visible stones, pericholecystic fluid or sonographic Britton sign. The patient reports a overnight fast for this examination. No gallbladder wall thickening or pericholecystic fluid in the right upper quadrant ultrasound 3 weeks ago. therefore, I doubt chronic cholecystitis. Clinical consultation sought, recommendation made for follow-up with outpatient provider, patient has been made aware of results and need for follow-up. CURRENT MEDICATIONS: See below. MENTAL STATUS EXAMINATION: Patient is a 30-year old male, who is generally pleasant and cooperative, more easily engaged today, makes improved eye contact, appears less disheveled, is dressed in hospital clothing, ambulates with steady gait, appears stated age Speech: Is of normal rate, rhythm, volume, spontaneous, coherent Language skills are Intact Thought processes including: Appear linear, logical, goal directed Thought content: Appear logical, rational, goal directed Abstract reasoning, and computation: Intact Description of associations: Intact. Description of abnormal or psychotic thoughts: Denies suicidal or homicidal ideation, denies auditory or visual hallucinations, does not appear to be responding to internal stimuli, does not endorse bizarre or paranoid ideation, denies preoccupation with violence or session, Judgment: Fair, continues to improve Insight: Fair, some improvement noted during treatment Orientation: A and O X 3 Recent and remote memory: Appear intact Attention span and concentration: Appear intact Language: Adequate Fund of knowledge: Limited Mood: "I'm feeling better than I was, just concerned about my stuff being stolen , I'm really looking forward to discharge." Patient appears less anxious and depressed today, no mood lability noted Affect: Constricted, brightens at times, congruent with mood DIAGNOSES: Unspecified Depressive Disorder, polysubstance use disorder, rule out MDD, rule out substance induced mood disorder, ASSESSMENT: Patient is adjusting to unit, has been attending groups, attending to his ADLs, has been more visible, is engaging with peers, has been more pleasant and cooperative with staff, and has presented with no behavior management challenges. Patient was encouraged to continue to participate in unit programming and to remain up out of bed during the day. Patient has completed Librium taper and denies experiencing symptoms of withdrawal or craving. Patient indicates medication regimen remains effective and denies medication side effects. Patient remains on I and O, reports improvement to intake, denies vomiting or symptoms of GI distress. Will continue to monitor patient's response to medications and will monitor for medication side effects. Will also continue to evaluate patient safety and discharge readiness. Patient denies current or past suicidal ideation and verbalizes awareness of how to access supportive services on unit if needed. Results of EKG and abdominal ultrasound have been reviewed with patient who states he is asymptomatic, and he has been instructed to follow-up with outpatient provider for ongoing monitoring. Patient reiterates today he is no longer interested in being referred for inpatient substance abuse treatment, reiterates he wants to discharge to home and attend outpatient substance abuse treatment at [facility] home and participate in psychotherapy and medication management services through [facility]. Community Advocate again attempted to encourage patient to enter inpatient substance abuse treatment, re-educated patient on the risks of his continuing to engage in substance abuse, and has also educated patient on the risk of combining prescribed medications with illicit drug use, patient verbalizes understanding. Patient continues to refuse to sign an PRICILLA's for contact with family/friends other than the friend with whom he lives and refers to as a mother figure. Patient remained aware that strong recommendation is being made for him to transfer to inpatient substance abuse treatment. MANAGEMENT PLAN: Continue Celexa 40 mg po q am, continue trazodone 200 mg po hs PRN insomnia, Benadryl 50 mg po q 6 hours PRN anxiety/agitation, clonidine 0.1 mg po q 8 hours PRN withdrawal symptoms. Change Zyprexa to 5 mg po q hs Patient remains on I and O Monitor patient for safety Encourage patient to participate in unit programming Encourage patient to participate in the discharge planning process and involve support system to ensure safe discharge when patient is ready Patient to follow up with PCM upon discharge TIME SPENT: 35 minutes Vital Signs Vital Signs Date Time Temp Pulse Resp B/P (MAP) Pulse Ox O2 Delivery O2 Flow Rate FiO2 10/03/16 06:43 97.5 90 18 138/98 (111) 09/30/16 06:16 Room Air Current Medications Current Medications Acetaminophen (Tylenol Tab) 650 mg Q6HP PRN PO HEADACHE or DISCOMFORT Last administered on 10/03/16 05:18; Start 09/20/16 at 17:30; Stop 10/20/16 at 17:29 Al Hydrox/Mg Hydrox/Simethicone (Mylanta) 30 ml Q4HP PRN PO HEARTBURN/ INDIGESTION Last administered on 09/26/16 17:47; Start 09/20/16 at 17:30; Stop 10/20/16 at 17:29 Chlordiazepoxide (Librium) 5 mg BID PO Last administered on 10/02/16 08:49; Start 09/30/16 at 21:00; Stop 10/02/16 at 11:00; Status DC Chlordiazepoxide (Librium) 10 mg BID PO Last administered on 09/30/16 09:07; Start 09/26/16 at 09:00; Stop 09/30/16 at 15:11; Status DC Chlordiazepoxide (Librium) 25 mg BID PO Last administered on 09/24/16 08:57; Start 09/22/16 at 21:00; Stop 09/24/16 at 09:44; Status DC Chlordiazepoxide (Librium) 25 mg BID PO Last administered on 09/25/16 20:40; Start 09/24/16 at 21:00; Stop 09/25/16 at 22:00; Status DC Chlordiazepoxide (Librium) 25 mg TID PO Last administered on 09/22/16 15:27; Start 09/20/16 at 21:00; Stop 09/22/16 at 15:43; Status DC Chlordiazepoxide (Librium) 25 mg TID PO Last administered on 09/24/16 15:32; Start 09/23/16 at 16:00; Stop 09/24/16 at 17:53; Status DC Citalopram Hydrobromide (CeleXA) 10 mg QAM PO Last administered on 09/23/16 08 :42; Start 09/22/16 at 09:00; Stop 09/23/16 at 15:29; Status DC Citalopram Hydrobromide (CeleXA) 20 mg QAM PO Last administered on 09/30/16 09 :07; Start 09/24/16 at 09:00; Stop 09/30/16 at 15:11; Status DC Citalopram Hydrobromide (CeleXA) 40 mg QAM PO Last administered on 10/03/16 08 :59; Start 10/01/16 at 09:00; Stop 10/31/16 at 08:59 Clonidine HCl (Catapres) 0.1 mg Q8H PRN PO opiate withdrawals Last administered on 10/01/16 08:30; Start 09/26/16 at 17:15; Stop 10/26/16 at 17:14 Diphenhydramine HCl (Benadryl) 50 mg Q6HP PRN PO ANXIETY/AGITATION Last administered on 10/02/16 23:24; Start 09/23/16 at 12:00; Stop 10/23/16 at 11:59 Docusate Sodium (Colace) 100 mg BID PO Last administered on 10/03/16 08:58; Start 09/26/16 at 21:00; Stop 10/26/16 at 20:59 Folic Acid (Folic Acid) 1 mg DAILY PO Last administered on 10/03/16 08:59; Start 09/21/16 at 09:00; Stop 10/21/16 at 08:59 Magnesium Hydroxide (Milk Of Magnesia) 30 ml DAILYPRN PRN PO CONSTIPATION Last administered on 09/27/16 18:33; Start 09/26/16 at 18:00; Stop 10/26/16 at 17:59 Methadone HCl (Dolophine) 5 mg QAM PO Last administered on 09/24/16 08:57; Start 09/23/16 at 09:00; Stop 09/24/16 at 17:58; Status DC Methadone HCl (Dolophine) 10 mg BID PO Last administered on 09/22/16 08:51; Start 09/21/16 at 21:00; Stop 09/22/16 at 15:43; Status DC Methadone HCl (Dolophine) 10 mg QHS PO Last administered on 09/23/16 20:10; Start 09/22/16 at 21:00; Stop 09/24/16 at 17:54; Status DC Multivitamins (Theragram-M) 1 tab DAILY PO Last administered on 10/03/16 08:59 ; Start 09/21/16 at 09:00; Stop 10/21/16 at 08:59 Nicotine (Nicoderm Cq 7 Mg) 1 patch DAILY TD Last administered on 10/03/16 08: 59; Start 09/20/16 at 09:00; Stop 10/20/16 at 08:59 Olanzapine (ZyPREXA ZYDIS) 5 mg Q6HP PRN PO ANXIETY/AGITATION Last administered on 10/03/16 00:45; Start 09/25/16 at 21:15; Stop 10/25/16 at 21:14 Olanzapine (ZyPREXA ZYDIS) 5 mg STAT STAT PO Last administered on 21:55; Start 09/24/16 at 21:46; Stop 09/24/16 at 21:47; Status DC Ondansetron HCl (Zofran) 4 mg Q6HP PRN PO NAUSEA OR VOMITING Last administered on 10/01/16 23:21; Start 09/21/16 at 17:00; Stop 10/21/16 at 16:59 Thiamine HCl (Thiamine HCl) 100 mg DAILY PO Last administered on 10/03/16 08: 59; Start 09/21/16 at 09:00; Stop 10/21/16 at 08:59 Trazodone HCl (Desyrel) 100 mg QHSP PRN PO INSOMNIA Last administered on 23:06; Start 09/20/16 at 17:30; Stop 09/23/16 at 11:00; Status DC Trazodone HCl (Desyrel) 200 mg QHSP PRN PO INSOMNIA Last administered on 22:21; Start 09/23/16 at 21:00; Stop 10/23/16 at 20:59 Allergies Coded Allergies: No Known Allergies (Unverified , 03/09/15) Cara Millan Oct 03, 2016 09:04
[2016-10-03 18:00] VITALS: BP 131/73
[2016-10-03 19:09] VITALS: BP 160/94
[2016-10-03 19:14] VITALS: BP 160/94
[2016-10-03] MEDS: cloNIDine 0.1 MG TAB PO PRN (19:14)
[2016-10-03 20:10] VITALS: BP 134/92
--- NOTE | 2016-10-03 20:12 | REP ---
Clinical: Chest pain . Comparison: 09/18/2016 . Technique: PA and lateral. Findings: The mediastinum and cardiac silhouette are normal. The lung chavez are clear and without acute consolidation, effusion, or pneumothorax. The skeletal structures are intact and normal. Impression: 1. No acute cardiopulmonary process. Signed by Cyrus Adams MD 10/03/2016 08:04 P
[2016-10-03] MEDS ORDERED: OLANZapine 5 MG TAB PO SCH (21:00)
[2016-10-03] MEDS ORDERED: cloNIDine 0.1 MG TAB PO PRN (21:15)
--- NOTE | 2016-10-03 22:31 | CR ---
DATE OF CONSULTATION: 10/03/2016 ATTENDING PHYSICIAN: Dr. Rooney, psychiatrist. REASON FOR CONSULTATION: Chest pain. HISTORY OF PRESENT ILLNESS: The patient is a 30-year-old white male with a history of anxiety, depression, IV drug abuse admitted to psychiatric service since 09/20/2016. Today, he had one episode of chest pain. Medicine service was called for consultation. Per the patient, he got a phone call from his family and he became very anxious and then he had some chest pain, which was located in his front chest and also the right shoulder, pain is about 4 out of 10 in severity. No radiation. No other symptoms of shortness of breath, nausea, or vomiting, but he states that he was very anxious. The nurse checked the blood pressure, which was around 200. He was given one dose of clonidine and gradually he said that his blood pressure was coming down and his chest pain was gone. When I evaluated him, he said that he does not have any chest pain. No other complaints. REVIEW OF SYSTEMS: Denies no headache. No blurred vision. No shortness of breath. No nausea or vomiting. No abdominal pain. No tingling, numbness, weakness in the arms or lower extremities. All other systems reviewed but negative. PAST MEDICAL HISTORY: 1. Anxiety. 2. Depression. 3. hepatitis C PAST SURGICAL HISTORY: None. FAMILY HISTORY: No family history of premature coronary artery disease. ALLERGIES: No known drug allergies. MEDICATIONS: Reviewed. SOCIAL HISTORY Smokes 1 and 1.5 PPD, occasional ETOH, polysubstance abuse including IVDA PHYSICAL EXAMINATION: VITAL SIGNS: Temperature 98, heart rate is 80, respirations 16, blood pressure 130/70, and oxygen saturation 98% on room air. GENERAL: He is awake, alert and oriented times three. He is in no acute distress. HEENT: Atraumatic. Pupils are equal, round and reactive to light. No jaundice. Extraocular muscles intact. Ears, nose and throat normal. Mouth with moist mucosa. LUNGS: Clear. No wheezing. No crackles. HEART: S1, S2. Regular. No murmur. ABDOMEN: Soft. Bowel sounds positive. Nontender. LOWER EXTREMITIES: No edema in bilateral lower extremities. NEUROLOGIC: Nonfocal. SKIN: No rash. PSYCHIATRIC: No acute psychosis. DIAGNOSTIC AND LABORATORIES: Include the following: EKG was normal sinus rhythm. Chest x-ray was normal. Troponin was negative ASSESSMENT AND RECOMMENDATIONS: This is a 30-year-old white male without significant cardiac risk factors in the past, admitted to psychiatric unit for depression and anxiety. He had one episode of chest pain associated with increased blood pressure, likely he had either a panic attack or very severely anxious, which resolved spontaneously. He has a normal EKG. He has a normal chest x-ray. Negative Troponin. I do not think that chest pain is related to any cardiac problem. Please call if the patient has any new symptoms. ELIAS
[2016-10-03] MEDS: traZODone 100 MG TAB PO PRN (22:46)
[2016-10-03 23:13] LABS: METHADONE URINE NEGATIVE (NEGATIVE)
[2016-10-04 06:00] VITALS: BP 141/77
[2016-10-04] MEDS: NICOTINE 7 MG/24 HR TRANSDERMAL TD SCH ×2 (08:17→09:33)
[2016-10-04] MEDS: DOCUSATE SODIUM 100 MG CAP PO SCH (08:19)
[2016-10-04] MEDS: CitaloPRAM (CeleXA) 20 MG TAB PO SCH (08:19)
[2016-10-04] MEDS: FOLIC ACID 1 MG TAB PO SCH (08:19)
[2016-10-04] MEDS: THIAMINE 100 MG TAB PO SCH (08:19)
[2016-10-04] MEDS: MULTIVITAMINS/MINERALS THERAP 1 TAB PO SCH (08:19)
[2016-10-04] MEDS ORDERED: CELE40TA PO (12:22)
[2016-10-04] MEDS ORDERED: TRAZ10TA PO (12:22)
[2016-10-04] MEDS ORDERED: OLAN5TAB PO (12:22)
[2016-10-04] MEDS ORDERED: FOLI1TAB4 PO (12:27)
[2016-10-04] MEDS ORDERED: VITMTA PO (12:27)
[2016-10-04] MEDS ORDERED: THIA100TA PO (12:27)
[2016-10-04] MEDS: diphenhydrAMINE 50 MG CAP PO PRN (12:48)
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
--- NOTE | 2016-10-09 11:59 | ECGEPIP ---
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
== END 2016-10-04 13:35 | disposition home or self-care (01) | DRG 754 ==
LOC: M PSY 17:05
PROVIDERS: ADMIT Psychiatry & Neurology Psychiatry; ATTEND Psychiatry & Neurology Psychiatry
DX: F32.9 Major depressive disorder, single episode, unspecified (principal); B18.2 Chronic viral hepatitis C; F19.94 Other psychoactive substance use, unspecified with psychoactive substance-induced mood disorder; F41.9 Anxiety disorder, unspecified; F14.90 Cocaine use, unspecified, uncomplicated; F12.90 Cannabis use, unspecified, uncomplicated; F11.90 Opioid use, unspecified, uncomplicated; F17.210 Nicotine dependence, cigarettes, uncomplicated

== ENCOUNTER 2019-06-28 11:14 | Emergency (ER) | payer OTHER ==
[~2019-06-28] VITALS: Ht 177.8 cm; Wt 72.7 kg
[~2019-06-28 11:14] MED LIST changes: +CELE40TA PO; +FOLI1TAB11 PO; -FOLI1TAB4 PO; +OLAN5TAB PO; -TRAZ-136 PO; +TRAZ-257 PO; +TRAZ1TAB12 PO
[2019-06-28 11:15] VITALS: BP 154/85
[2019-06-28] MEDS ORDERED: SUBO8MIS (11:21)
[2019-06-28] MEDS ORDERED: CLON-412 (11:23)
== END 2019-06-28 11:30 | disposition home or self-care (01) ==
LOC: M ED 11:14
DX: R11.2 Nausea with vomiting, unspecified (principal); Z86.19 Personal history of other infectious and parasitic diseases; R56.9 Unspecified convulsions; K21.9 Gastro-esophageal reflux disease without esophagitis; M54.9 Dorsalgia, unspecified; F41.9 Anxiety disorder, unspecified; F32.9 Major depressive disorder, single episode, unspecified; F17.200 Nicotine dependence, unspecified, uncomplicated; F19.10 Other psychoactive substance abuse, uncomplicated

== ENCOUNTER 2019-09-17 16:15 | Inpatient (IN) | payer MEDICAID, OTHER ==
[~2019-09-17] VITALS: Ht 177.8 cm; Wt 64.6 kg
[~2019-09-17 16:15] MED LIST changes: +ACET325T42 PO; +CLON-412 PO; -MAPA325T3 PO; +SUBO8MIS SL
[2019-09-17] MEDS ORDERED: LORazepam 2 MG/ML VIAL IV STA ×2 (17:19→18:41)
[2019-09-17] MEDS ORDERED: NS 1,000 ML IV ONE (17:30)
[2019-09-17 17:47] LABS: AMPHETAMINES LEVEL URINE NEGATIVE (NEGATIVE); BARBITURATES URINE NEGATIVE (NEGATIVE); BENZODIAZEPINES URINE NEGATIVE (NEGATIVE); CANNABINOIDS URINE POSITIVE (NEGATIVE); COCAINE METABOLITE URINE NEGATIVE (NEGATIVE); METHADONE URINE NEGATIVE (NEGATIVE); OPIATES URINE POSITIVE (NEGATIVE); PHENCYCLIDINE URINE NEGATIVE (NEGATIVE)
[2019-09-17 17:55] LABS: HEMATOCRIT 44.9 % (42.0-52.0); HEMOGLOBIN 15.5 g/dl (13.5-17.5); MEAN CORPUSCULAR HEMOGLOBIN 30.8 pg (27.0-33.0); MEAN CORPUSCULAR HGB CONC 34.5 g/dl (32.0-36.5); MEAN CORPUSCULAR VOLUME 89.3 fl (80.0-96.0); PLATELET COUNT, AUTOMATED 278 10^3/uL (150-450); RED BLOOD COUNT 5.03 10^6/uL (4.30-6.10); WHITE BLOOD COUNT 9.8 10^3/uL (4.0-10.0)
[2019-09-17 18:23] LABS: ACETAMINOPHEN LEVEL < 2.0 UG/ML (10.0-30.0); ALBUMIN 3.9 GM/DL (3.2-5.2); ALT/SGPT 41 U/L (12-78); BILIRUBIN,DIRECT 0.2 MG/DL (0.0-0.2); BILIRUBIN,TOTAL 0.5 MG/DL (0.2-1.0); ETHYL ALCOHOL (ETHANOL) 0.012 % (0.000-0.010); SALICYLATE LEVEL 4.4 MG/DL (5.0-30.0); THYROID STIMULATING HORMONE 0.623 uIU/ML (0.358-3.740); TOTAL PROTEIN 7.5 GM/DL (6.4-8.2)
[2019-09-17] MEDS ORDERED: LORazepam 1 MG TAB PO ONE (19:30)
[2019-09-17] MEDS ORDERED: LORazepam 2 MG TAB PO PRN (19:45)
[2019-09-17] MEDS ORDERED: chlorproMAZINE 25 MG TAB (Q0161) PO ONE (21:15)
[2019-09-17] MEDS ORDERED: patient comment (21:29)
[2019-09-17] MEDS ORDERED: traZODone 50 MG TAB PO PRN (23:45)
[2019-09-17] MEDS ORDERED: MOM 30ML SUSPENSION UDC PO PRN (23:45)
[2019-09-17] MEDS ORDERED: MAALOX 30 ML SUSP *UDC PO PRN (23:45)
[2019-09-18] MEDS: OLANZapine ORAL DISINTEGRATING TAB 5MG PO PRN ×2 (03:05→07:36)
[2019-09-18] MEDS ORDERED: cloNIDine 0.1 MG TAB PO STA (08:11)
[2019-09-18] MEDS ORDERED: BUPRENORPHINE/NALOXONE 8-2MG SUBLINGUAL TABLET(SUBOXONE) SL ONE ×2 (09:00→12:30)
[2019-09-18] MEDS: ACETAMINOPHEN TAB 650MG DOSE (2X325MG) PO PRN (09:30)
[2019-09-18] MEDS ORDERED: OLANZapine ORAL DISINTEGRATING TAB 5MG PO ONE (12:30)
--- NOTE | 2019-09-18 15:09 | HPEPDOC ---
General Date of Admission Sep 17, 2019 at 23:35 Date of Service: Sep 18, 2019 Attending Physician: NORMA SANDERSON MD Chief Complaint The patient is a 33-year-old male admitted with a reason for visit of Unspecified Psychosis. History of Present Illness 33 yo M with PSUD (PSUD - Cocaine, heroine, marijuana, benzodiazepines. Occasional alcohol. Cigarette smoking.) who presented to the ED reporting that he relapsed on heroine last week and has not taken his suboxone for 1 week and feels like he is withdrawing. ED work up was grossly normal except for tox screen that was positive for marijuana and opiates. He had some agitation and also reported feeling suicidal while he was in the ED. He was ultimately admitted to the [facility] and medicine is consulted for H&P. On meeting him, he declined to have a lengthy discussion because he is uncomfortable from withdrawa l and incessantly asked for suboxone. He did agree for me to complete a physical exam and denied any recent physical illness Home Medications Scheduled Buprenorphine HCl/Naloxone HCl (Suboxone 8 mg-2 mg Sl Film) 1 Each Film, 1 FILM SL BID, (Reported) Clonidine HCl (Clonidine HCl) 0.1 Mg Tablet, 0.1 MG PO TID, (Reported) Miscellaneous Medications [patient comment] , (Reported) UNABLE TO VERIFY WITH PT. MED LIST OBTAINED THROUGH PHARMACY. Allergies Coded Allergies: No Known Allergies (Unverified , 03/09/15) Past Medical History Medical History PSUD - Cocaine, heroine, marijuana, benzodiazepines. Occasional alcohol. Cigarette smoking. HCV+ Family History Significant Family History: No pertinent family hx Social History * Smoker: current smoker Alcohol: occationally Drugs: cocaine, heroin, marijuana, prescription drugs Recent Travel/Sick Contacts: Denies: Recent travel, Recent sick contacts Psychosocial History: Depression, Suicidal thoughts PSUD - Cocaine, heroine, marijuana, benzodiazepines. Occasional alcohol. Cigarette smoking. A-FIB/CHADSVASC A-FIB History Current/History of A-Fib/PAF?: No Current PO Anticoag Therapy: No Age/Risk Factor Scoring CHADSVASC: CHADSVASC Response (Comments) Value Age Risk Factor Age < 65 years old 0 Gender Risk Factor Male 0 Hx of CHF No 0 Hx of HTN No 0 Hx of Stroke/TIA/or VTE No 0 Hx of Diabetes No 0 Hx of Vascular Disease No 0 Total 0 Treatment Treatment ordered: NONE Reason Anticoagulant not given: Not indicated/[id number] Physical Examination General Exam: Positive: Alert, Mild Distress Eye Exam: Positive: Other Eye Symptoms (Unable to perform eye exam from patient refusing) Chest Exam: Positive: Clear to auscultation, Normal air movement Heart Exam: Positive: Rate Normal, Regular Rhythm, Normal S1, Normal S2; Negative: Murmurs, Rubs Abdomen Exam: Positive: Normal bowel sounds, Soft; Negative: Tenderness, Hepatospenomegaly Extremity Exam: Positive: Normal pulses; Negative: Clubbing, Cyanosis, Edema Skin Exam: Positive: Other skin issue (scattered skin lesions that have scabbed over, no drainage, no surrounding erythema) Neuro Exam: Positive: Normal Speech, Strength at 5/5 X4 ext Psych Exam: Positive: Anxiety, Oriented x 3, Other (restless) Vital Signs Vital Signs Date Time Temp Pulse Resp B/P (MAP) Pulse Ox O2 Delivery O2 Flow Rate FiO2 09/18/19 08:24 138/63 09/18/19 06:27 98.4 18 09/17/19 23:42 63 09/17/19 18:57 96 Room Air Laboratory Data Labs 24H Laboratory Tests 2 09/17/19 17:02: Urine Opiates Screen POSITIVEH, Urine Methadone Screen NEGATIVE, Urine Barbiturates Screen NEGATIVE, Urine Phencyclidine Screen NEGATIVE, Urine Amphetamines Screen NEGATIVE, Urine Benzodiazepines Screen NEGATIVE, Urine Cocaine Metabolite Screen NEGATIVE, Urine Cannabinoids Screen POSITIVEH 09/17/19 17:39: Nucleated Red Blood Cells % (auto) 0.0, Total Bilirubin 0.5, Direct Bilirubin 0. 2, Aspartate Amino Transf (AST/SGOT) 37, Alanine Aminotransferase (ALT/SGPT) 41, Alkaline Phosphatase 76, Total Protein 7.5, Albumin 3.9, Albumin/Globulin Ratio 1.1, Thyroid Stimulating Hormone (TSH) 0.623, Salicylates Level 4.4L, Acetaminophen Level < 2.0L, Ethyl Alcohol Level 0.012H 09/17/19 17:40: POC Glucose (Misc Panel) 84, POC Sodium (Misc Panel) 140, POC Potassium (Misc Panel) 4.2, POC Chloride (Misc Panel) 101, POC Total CO2 (Misc Panel) 26.0, POC Blood Urea Nitrogen (Misc Panel 9, POC Ionized Calcium (Misc Panel) 4.8, POC Creatinine (Misc Panel) 0.8, POC Hematocrit (Misc Panel) 45.0 CBC/BMP Laboratory Tests 09/17/19 17:39 Assessment/Plan 33 yo M with PSUD (PSUD - Cocaine, heroine, marijuana, benzodiazepines. Occasional alcohol. Cigarette smoking.) who presented to the ED reporting that he relapsed on heroine last week and has not taken his suboxone for 1 week and feels like he is withdrawing as well as expressing suicidal ideation. At this time, I will defer the management to the primary psychiatry team without acute medical care needs at this time. Plan / VTE VTE Prophylaxis Ordered?: No VTE Exclusion Mechanical Proph: Low Risk for VTE VTE Exclusion Pharmacological: At Low Risk for VTE NORMA SANDERSON MD Sep 18, 2019 15:09
[2019-09-18 16:26] VITALS: BP 140/80
[2019-09-18] MEDS ORDERED: ONDANSETRON 4 MG TAB PO PRN (17:45)
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
[2019-09-19 09:00] VITALS: BP 130/77
[2019-09-19] MEDS ORDERED: BUPRENORPHINE/NALOXONE 8-2MG SUBLINGUAL TABLET(SUBOXONE) SL ONE (09:00)
[2019-09-19 09:30] VITALS: BP 132/79
[2019-09-19 16:30] VITALS: BP 128/80
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
[2019-09-19] MEDS: BUPRENORPHINE/NALOXONE 8-2MG SUBLINGUAL TABLET(SUBOXONE) SL SCH (20:31)
[2019-09-19] MEDS: ACETAMINOPHEN TAB 650MG DOSE (2X325MG) PO PRN (20:31)
[2019-09-19] MEDS: cloNIDine 0.1 MG TAB PO PRN (21:57)
[2019-09-19 22:01] VITALS: BP 156/103
[2019-09-20 06:40] VITALS: BP 140/64
[2019-09-20] MEDS: BUPRENORPHINE/NALOXONE 8-2MG SUBLINGUAL TABLET(SUBOXONE) SL SCH ×2 (08:24→20:10)
[2019-09-20] MEDS: cloNIDine 0.1 MG TAB PO PRN ×2 (11:30→18:29)
--- NOTE | 2019-09-20 13:33 | MHIPNPDOC ---
[facility] Progress Note Progress Note DOS: 09/20/2019 Patient met with today with nurse present for telehealth evaluation due to COVID Crisis Events Overnight:[none] Group Attendance::[frequent] Symptom changes (psych ROS): Affective:[none today] Psychotic:[None today] Anxiety: [no changes] Staff Report: friendly amenable, with no problems Medical ROS: [Gen: -fevers, chills] [Cardio: -chest pain, palpations] [Shorter: -SOB, cough] [GI: -N,V,D,C] [Neuro: -tremors, msk stiffness] [Derm: -rash] MSE: Vitals: Below [General: Well dressed with good hygiene Speech: Spontaneous and fluid Thought processes: Linear and logical Thought content: Future orientated Abstract reasoning, and computation: Intact Description of associations: Intact Description of abnormal or psychotic thoughts:Denies any suicidal or homicidal ideation. Denies any auditory or visual hallucinations. Does not appear to be responding to internal stimuli. Does not appear to be endorsing any bizarre or paranoid ideation. Judgment: fair Insight: fair Orientation: Alert and orientated 3 Recent and remote memory: Intact Attention span and concentration: Intact Fund of knowledge: Adequate Mood: "okay" Affect: Euthymic with a full range] Vital Signs Vital Signs Date Time Temp Pulse Resp B/P (MAP) Pulse Ox O2 Delivery O2 Flow Rate FiO2 09/20/19 11:30 131/85 09/20/19 06:40 98.8 48 18 09/19/19 16:30 100 Room Air Current Medications Current Medications Medications (Trade) Dose Ordered Sig/Elisha Route PRN Reason Start Time Stop Time Status Last Admin Dose Admin Acetaminophen (Tylenol Tab) 650 mg Q6HP PRN PO HEADACHE or DISCOMFORT 09/17/19 23:45 09/19/19 20:31 Al Hydrox/Mg Hydrox/Simethicone (Mylanta) 30 ml Q4HP PRN PO HEARTBURN/INDIGESTION 09/17/19 23:45 Buprenorphine/ Naloxone (Suboxone 8/2mg) 1 tab BID SL 09/19/19 21:00 09/20/19 08:24 Clonidine HCl (Catapres) 0.1 mg STAT STAT PO 09/18/19 08:11 09/18/19 08:16 DC 09/18/19 08:24 Clonidine HCl (Catapres) 0.1 mg TID PRN PO WITHDRAWAL SYMPTOMS 09/18/19 08:15 09/20/19 11:30 Home Med (Med Rec Complete!) ASDIRECTED XX 09/17/19 21:30 09/17/19 21:33 DC Lorazepam (Ativan) 1 mg STAT STAT IV 09/17/19 17:19 09/17/19 17:21 DC 09/17/19 17:41 Lorazepam (Ativan) 1 mg STAT STAT IV 09/17/19 18:41 09/17/19 18:42 DC 09/17/19 18:53 Lorazepam (Ativan) 2 mg ASDIRECTED PRN PO SEE PROTOCOL 09/17/19 19:45 09/18/19 03:04 DC 09/17/19 19:57 Magnesium Hydroxide (Milk Of Magnesia) 30 ml DAILYPRN PRN PO CONSTIPATION 09/17/19 23:45 Olanzapine (ZyPREXA ZYDIS) 5 mg Q4HP PRN PO AGITATION/ANXIETY 09/17/19 23:45 09/18/19 07:36 Ondansetron HCl (Zofran) 4 mg Q6HP PRN PO NAUSEA OR VOMITING 09/18/19 17:45 Trazodone HCl (Desyrel) 50 mg QHSP PRN PO INSOMNIA 09/17/19 23:45 09/18/19 03:05 Allergies Coded Allergies: No Known Allergies (Unverified , 03/09/15) Problems (1) Suicidal ideation Status: Resolved (2) Polysubstance abuse Status: Chronic Response to Treatment: Stable Problem Text: Continue Suboxone (3) Nausea & vomiting Status: Resolved (4) Nicotine addiction Status: Chronic Plan / VTE VTE Prophylaxis Ordered?: No Plan Diet: Continue Current Activity: Continue Current Anticipated Discharge: Home (Discharged tomorrow at patient request) KAM GAR DO Sep 20, 2019 13:33
[2019-09-20 15:47] VITALS: BP 123/57
[2019-09-20] MEDS: NICOTINE POLACRILEX 2 MG GUM PO PRN ×2 (16:23→20:22)
[2019-09-20] MEDS: OLANZapine ORAL DISINTEGRATING TAB 5MG PO PRN (18:29)
[2019-09-20] MEDS: ACETAMINOPHEN TAB 650MG DOSE (2X325MG) PO PRN (20:11)
[2019-09-21 06:00] VITALS: BP 108/51
[2019-09-21 08:09] VITALS: BP 139/74
[2019-09-21] MEDS: cloNIDine 0.1 MG TAB PO PRN (08:09)
[2019-09-21] MEDS: BUPRENORPHINE/NALOXONE 8-2MG SUBLINGUAL TABLET(SUBOXONE) SL SCH (08:09)
--- NOTE | 2019-09-21 09:27 | MHDSPDOC ---
[facility] Discharge Summary Discharge Summary DATE OF ADMISSION: Sep 17, 2019 at 23:35 DATE OF DISCHARGE: Sep 21, 2019 at 12:55 DISCHARGE DIAGNOSES: See Problem list below REASON FOR ADMISSION: 33-year-old man admitted after using substances with depression CONSULTANTS INVOLVED:[ None (basic hospitalist screening)] TREATMENT AND PROGRESS ON THE UNIT : Medication changes: resumed on home meds without incident positive results Behavior on unit: friendly and amenable Treatment attendance:, attended well Notable issues on presentation: none. 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 Legal status considerations: The patient at the time of discharge did not meet criteria for involuntary admission/extension due to having a [normal] mental status exam, [fair] insight into the situation, They are engaged in the discharge process, as well as being friendly and amenable in behavioral control and havent been engaging in any observed concerning behavior or ideation recently. They decline voluntary extension/admission at this time and must be discharged in good jef, as Im unable to make a case for holding the patient against their will. They may have historical risk factors of admissions and other interactions with psychiatry however, those are not modifiable from a clinical perspective. The patient will need to be discharged in good jef. MENTAL STATUS EXAMINATION ON DISCHARGE: [General: Well dressed with good hygiene Speech: Spontaneous and fluid Thought processes: Linear and logical Thought content: Future orientated Abstract reasoning, and computation: Intact Description of associations: Intact Description of abnormal or psychotic thoughts:Denies any suicidal or homicidal ideation. Denies any auditory or visual hallucinations. Does not appear to be responding to internal stimuli. Does not appear to be endorsing any bizarre or paranoid ideation. Judgment: fair Insight: fair Orientation: Alert and orientated 3 Recent and remote memory: Intact Attention span and concentration: Intact Fund of knowledge: Adequate Mood: "okay" Affect: Euthymic with a full range] PLAN/FOLLOWUP ARRANGEMENTS: Follow up appointments made (PCP and MH in 5 days of D/C date) and safety plan completed. Safety Planning aspects completed prior to discharge [SAFE ACT reported on initial invol admission in ER] [RN reviewed crisis hotline information and other aspects to empower patient to access care in interim before next appointment.] The amount of time spent in the coordination of care for this patient was approximately 30 minutes. Vital Signs/I&Os Vital Signs Date Time Temp Pulse Resp B/P (MAP) Pulse Ox O2 Delivery O2 Flow Rate FiO2 09/21/19 08:09 139/74 09/21/19 06:00 97.6 64 14 99 Nasal Cannula Medications Scheduled Buprenorphine HCl/Naloxone HCl (Suboxone 8 mg-2 mg Sl Film) 1 Each Film, 1 FILM SL BID, (Reported) Clonidine HCl (Clonidine HCl) 0.1 Mg Tablet, 0.1 MG PO TID, (Reported) Allergies Coded Allergies: No Known Allergies (Unverified , 03/09/15) Problems (1) Suicidal ideation Status: Resolved (2) Polysubstance abuse Status: Chronic Response to Treatment: Stable Problem Text: Continue Suboxone (3) Nausea & vomiting Status: Resolved (4) Nicotine addiction Status: Chronic (5) Depressed Status: Resolved Plan / VTE VTE Prophylaxis Ordered?: KAM Armendariz DO Sep 21, 2019 09:26
== END 2019-09-21 12:55 | disposition home or self-care (01) | DRG 773 ==
LOC: M ED 16:15 → EDBD 16:15 → M ED INP 23:35 → M PSY 09-18 00:33
PROVIDERS: ADMIT Psychiatry & Neurology Addiction Medicine; ATTEND Psychiatry & Neurology Addiction Medicine
DX: F11.24 Opioid dependence with opioid-induced mood disorder (principal); F11.23 Opioid dependence with withdrawal; F12.10 Cannabis abuse, uncomplicated; Z79.899 Other long term (current) drug therapy; F17.210 Nicotine dependence, cigarettes, uncomplicated; R11.2 Nausea with vomiting, unspecified; R45.851 Suicidal ideations

== ENCOUNTER 2019-10-18 08:06 | Emergency (ER) | payer MEDICAID, OTHER ==
[~2019-10-18] VITALS: Ht 177.8 cm; Wt 84.1 kg
[~2019-10-18 08:06] MED LIST changes: +patient comment
[2019-10-18] MEDS ORDERED: HALOPERIDOL 5MG/ML VIAL (J1630 PER 1) IV ONE (08:45)
[2019-10-18 08:47] LABS: HEMATOCRIT 42.4 % (42.0-52.0); HEMOGLOBIN 14.3 g/dl (13.5-17.5); MEAN CORPUSCULAR HEMOGLOBIN 30.3 pg (27.0-33.0); MEAN CORPUSCULAR HGB CONC 33.7 g/dl (32.0-36.5); MEAN CORPUSCULAR VOLUME 89.8 fl (80.0-96.0); PLATELET COUNT, AUTOMATED 292 10^3/uL (150-450); RED BLOOD COUNT 4.72 10^6/uL (4.30-6.10)
[2019-10-18 09:15] LABS: ALBUMIN 3.5 GM/DL (3.2-5.2); ALT/SGPT 30 U/L (12-78); BILIRUBIN,DIRECT < 0.1 MG/DL (0.0-0.2); BILIRUBIN,TOTAL 0.1 MG/DL (0.2-1.0); BLOOD UREA NITROGEN 12 MG/DL (7-18); CALCIUM LEVEL 8.6 MG/DL (8.5-10.1); CARBON DIOXIDE LEVEL 27 MEQ/L (21-32); CHLORIDE LEVEL 105 MEQ/L (98-107); CREATININE FOR GFR 0.75 MG/DL (0.70-1.30); GLOMERULAR FILTRATION RATE > 60.0 (>60); GLUCOSE, FASTING 105 MG/DL (70-100); LIPASE 64 U/L (73-393); POTASSIUM SERUM 3.6 MEQ/L (3.5-5.1); SODIUM LEVEL 140 MEQ/L (136-145); TOTAL PROTEIN 6.6 GM/DL (6.4-8.2)
[2019-10-18 09:47] LABS: ATYPICAL LYMPH 2 % (0-5); LYMPHOCYTES 22 % (16-44); MONOCYTES 3 % (0-5); NEUTROPHILS 72 % (28-66)
[2019-10-18 09:48] LABS: ANISOCYTOSIS 1+; PLATELET ESTIMATE NORMAL (NORMAL)
[2019-10-18] MEDS ORDERED: NS 1,000 ML IV ONE (10:30)
[2019-10-18 11:37] LABS: AMPHETAMINES LEVEL URINE NEGATIVE (NEGATIVE); BARBITURATES URINE NEGATIVE (NEGATIVE); BENZODIAZEPINES URINE NEGATIVE (NEGATIVE); CANNABINOIDS URINE POSITIVE (NEGATIVE); COCAINE METABOLITE URINE NEGATIVE (NEGATIVE); METHADONE URINE NEGATIVE (NEGATIVE); OPIATES URINE NEGATIVE (NEGATIVE); PHENCYCLIDINE URINE NEGATIVE (NEGATIVE)
[2019-10-18] MEDS ORDERED: REGL10TA6 PO (11:58)
[2019-10-18 12:30] VITALS: BP 132/63
== END 2019-10-18 12:39 | disposition home or self-care (01) ==
LOC: EDBD 08:06 → M ED 08:06
DX: R11.11 Vomiting without nausea (principal); F12.988 Cannabis use, unspecified with other cannabis-induced disorder; F33.9 Major depressive disorder, recurrent, unspecified; F41.9 Anxiety disorder, unspecified; F17.200 Nicotine dependence, unspecified, uncomplicated; F14.11 Cocaine abuse, in remission; F19.11 Other psychoactive substance abuse, in remission; Z79.899 Other long term (current) drug therapy; Z86.19 Personal history of other infectious and parasitic diseases
CPT/HCPCS: 80048; 80076; 80307; 83690; 85025; 93041; 96361; 96374; 99284; J1630

== ENCOUNTER → 2019-11-18 | Emergency (ER) | payer OTHER ==
[~2019-11-18] MED LIST changes: +METH10CO PO; +METHADONE 10 MG TAB (S0109) As Ordered ONE; +METHADONE 10 MG TAB (S0109) ONE; +METOCLOPRAMIDE INJ 10MG/2ML VIAL (J2765 PER 1) As Ordered ONE; +METOCLOPRAMIDE INJ 10MG/2ML VIAL (J2765 PER 1) ONE; +ONDANSETRON 4MG/2ML VIAL As Ordered ONE; +ONDANSETRON 4MG/2ML VIAL ONE; +PROMETHAZINE INJ 25 MG/ML VIAL (J2550) As Ordered ONE; +PROMETHAZINE INJ 25 MG/ML VIAL (J2550) ONE; +REGL10TA6 PO
[2020-01-03 01:02] LABS: BASO # 0.1 10^3/uL (0.0-0.2); BASO % 0.3 % (0.0-1.0); EOS # 0.1 10^3/uL (0.0-0.5); EOS % 0.5 % (0.0-3.0); HEMATOCRIT 42.7 % (42.0-52.0); HEMOGLOBIN 14.3 g/dl (13.5-17.5); LYMPH # 1.9 10^3/uL (1.5-5.0); MEAN CORPUSCULAR HEMOGLOBIN 30.2 pg (27.0-33.0); MEAN CORPUSCULAR HGB CONC 33.5 g/dl (32.0-36.5); MEAN CORPUSCULAR VOLUME 90.1 fl (80.0-96.0); MONO # 1.5 10^3/uL (0.0-0.8); MONO % 7.9 % (0.0-5.0); NEUTROPHILS # 15.4 10^3/uL (1.5-8.5); NEUTROPHILS % 80.4 % (36.0-66.0); PLATELET COUNT, AUTOMATED 283 10^3/uL (150-450); RED BLOOD COUNT 4.74 10^6/uL (4.30-6.10); WHITE BLOOD COUNT 19.2 10^3/uL (4.0-10.0)
== END | disposition home or self-care (01) ==
LOC: M ED 08:40
DX: F11.20 Opioid dependence, uncomplicated (principal); R11.2 Nausea with vomiting, unspecified; R10.9 Unspecified abdominal pain; R19.7 Diarrhea, unspecified; R56.9 Unspecified convulsions; Z86.19 Personal history of other infectious and parasitic diseases; F17.200 Nicotine dependence, unspecified, uncomplicated
CPT/HCPCS: 80053; 80307; 82803; 84443; 85025; 96361; 96374; 96375; 99284; G0480; J2405; J2765

== ENCOUNTER 2019-12-31 12:19 | Emergency (ER) | payer OTHER ==
[~2019-12-31] VITALS: Ht 177.8 cm; Wt 68.2 kg
[~2019-12-31 12:19] MED LIST changes: -METH10CO PO; -METHADONE 10 MG TAB (S0109) As Ordered ONE; -METHADONE 10 MG TAB (S0109) ONE; -METOCLOPRAMIDE INJ 10MG/2ML VIAL (J2765 PER 1) As Ordered ONE; -METOCLOPRAMIDE INJ 10MG/2ML VIAL (J2765 PER 1) ONE; -ONDANSETRON 4MG/2ML VIAL As Ordered ONE; -ONDANSETRON 4MG/2ML VIAL ONE; -PROMETHAZINE INJ 25 MG/ML VIAL (J2550) As Ordered ONE; -PROMETHAZINE INJ 25 MG/ML VIAL (J2550) ONE
[2019-12-31] MEDS ORDERED: METH10CO PO (12:28)
[2019-12-31] MEDS ORDERED: ONDANSETRON 4MG/2ML VIAL IV ONE (12:30)
[2019-12-31] MEDS ORDERED: GI COCKTAIL 50ML BTL(HYOSCYAMINE/MAALOX/LIDOCAINE VISCOUS)(1:3:1) PO ONE (12:30)
[2019-12-31] MEDS ORDERED: ASPIRIN 81 MG CHEW TABLET PO ONE (12:30)
[2019-12-31] MEDS ORDERED: NS 1,000 ML IV ONE (12:30)
[2019-12-31 12:32] VITALS: BP 164/89
[2019-12-31] MEDS ORDERED: cloNIDine 0.2 MG TAB PO ONE (12:45)
--- NOTE | 2019-12-31 12:50 | REPVR ---
PROCEDURE INFORMATION: Exam: XR Chest, 1 View Exam date and time: 12/31/2019 12:45 PM Age: 34 years old Clinical indication: Chest pain TECHNIQUE: Imaging protocol: XR of the chest Views: 1 view. COMPARISON: CR Chest, 2 view PA, Lat 10/03/2016 8:05 PM FINDINGS: Lungs: Unremarkable. No consolidation. Pleural space: The left costophrenic angle is not fully included, but no significant left pleural effusion is evident. The right costophrenic angle is sharp. No pneumothorax is identified. Heart/Mediastinum: The cardiomediastinal silhouette is fairly stable in appearance, allowing for differences in technique. Bones/joints: Unremarkable. IMPRESSION: No evidence for acute pulmonary disease on this limited, portable exam. Electronically signed by: Bogdan Eisenberg On 12/31/2019 12:50:20 PM
[2019-12-31 12:59] LABS: BASO % 0.3 % (0.0-1.0); EOS % 0.1 % (0.0-3.0); HEMATOCRIT 41.8 % (42.0-52.0); HEMOGLOBIN 14.4 g/dl (13.5-17.5); LYMPH % 22.3 % (24.0-44.0); MEAN CORPUSCULAR HEMOGLOBIN 30.1 pg (27.0-33.0); MEAN CORPUSCULAR HGB CONC 34.4 g/dl (32.0-36.5); MEAN CORPUSCULAR VOLUME 87.3 fl (80.0-96.0); MONO # 0.4 10^3/uL (0.0-0.8); MONO % 3.9 % (0.0-5.0); NEUTROPHILS # 6.6 10^3/uL (1.5-8.5); PLATELET COUNT, AUTOMATED 236 10^3/uL (150-450); RED BLOOD COUNT 4.79 10^6/uL (4.30-6.10)
[2019-12-31] MEDS ORDERED: cloNIDine 0.2 MG TAB As Ordered ONE (13:05)
[2019-12-31 13:34] LABS: ALBUMIN 4.2 GM/DL (3.2-5.2); ALT/SGPT 26 U/L (12-78); BILIRUBIN,DIRECT 0.2 MG/DL (0.0-0.2); BILIRUBIN,TOTAL 0.6 MG/DL (0.2-1.0); CK-MB VALUE MASS 2.2 NG/ML (<3.6); CPK CREATINE PHOSPHOKINASE 140 U/L (39-308); FREE T4 1.54 NG/DL (0.76-1.46); LIPASE 34 U/L (73-393); MB/CK RELATIVE INDEX 1.57 (< OR =4); THYROID STIMULATING HORMONE 0.564 uIU/ML (0.358-3.740); TOTAL PROTEIN 7.6 GM/DL (6.4-8.2); TROPONIN I < 0.02 NG/ML (< 0.10)
[2019-12-31] MEDS ORDERED: REGL10TA6 PO (14:07)
== END 2019-12-31 14:25 | disposition home or self-care (01) ==
LOC: M ED 12:19
DX: F12.188 Cannabis abuse with other cannabis-induced disorder (principal); R11.2 Nausea with vomiting, unspecified; F19.10 Other psychoactive substance abuse, uncomplicated; B19.20 Unspecified viral hepatitis C without hepatic coma; F17.200 Nicotine dependence, unspecified, uncomplicated; Z79.899 Other long term (current) drug therapy
CPT/HCPCS: 71045; 80047; 80076; 82550; 82553; 83690; 84439; 84443; 85025; 93041; 94760; 96361; 96374; 99284; J2405

== ENCOUNTER 2020-04-09 10:04 | Emergency (ER) | payer OTHER ==
[~2020-04-09] VITALS: Ht 177.8 cm; Wt 72.7 kg
[~2020-04-09 10:04] MED LIST changes: +METH10CO PO
[2020-04-09] MEDS ORDERED: NS 1,000 ML IV ONE ×2 (10:30)
[2020-04-09] MEDS ORDERED: PANTOPRAZOLE 40MG VIAL (C9113 PER 1) IV ONE (10:30)
[2020-04-09] MEDS ORDERED: HALOPERIDOL 5MG/ML VIAL (J1630 PER 1) IV ONE (10:30)
[2020-04-09] MEDS ORDERED: HALOPERIDOL 5MG/ML VIAL (J1630 PER 1) As Ordered ONE (10:31)
[2020-04-09 10:48] LABS: BASO # 0.1 10^3/uL (0.0-0.2); BASO % 0.3 % (0.0-1.0); EOS % 0.2 % (0.0-3.0); HEMATOCRIT 47.3 % (42.0-52.0); HEMOGLOBIN 15.8 g/dl (13.5-17.5); LYMPH # 2.5 10^3/uL (1.5-5.0); LYMPH % 17.2 % (24.0-44.0); MEAN CORPUSCULAR HEMOGLOBIN 29.9 pg (27.0-33.0); MEAN CORPUSCULAR HGB CONC 33.4 g/dl (32.0-36.5); MEAN CORPUSCULAR VOLUME 89.6 fl (80.0-96.0); MONO # 0.7 10^3/uL (0.0-0.8); MONO % 4.9 % (0.0-5.0); NEUTROPHILS # 11.2 10^3/uL (1.5-8.5); NEUTROPHILS % 76.9 % (36.0-66.0); PLATELET COUNT, AUTOMATED 248 10^3/uL (150-450); RED BLOOD COUNT 5.28 10^6/uL (4.30-6.10); WHITE BLOOD COUNT 14.6 10^3/uL (4.0-10.0)
[2020-04-09 11:26] LABS: ALBUMIN 4.3 GM/DL (3.2-5.2); ALT/SGPT 103 U/L (12-78); BILIRUBIN,DIRECT 0.1 MG/DL (0.0-0.2); BILIRUBIN,TOTAL 0.6 MG/DL (0.2-1.0); BLOOD UREA NITROGEN 14 MG/DL (7-18); CALCIUM LEVEL 9.6 MG/DL (8.5-10.1); CARBON DIOXIDE LEVEL 26 MEQ/L (21-32); CHLORIDE LEVEL 102 MEQ/L (98-107); CREATININE FOR GFR 0.94 MG/DL (0.70-1.30); GLOMERULAR FILTRATION RATE > 60.0 (>60); GLUCOSE, FASTING 165 MG/DL (70-100); LIPASE 177 U/L (73-393); POTASSIUM SERUM 4.5 MEQ/L (3.5-5.1); SODIUM LEVEL 137 MEQ/L (136-145); TOTAL PROTEIN 8.1 GM/DL (6.4-8.2)
[2020-04-09] MEDS ORDERED: PROMETHAZINE INJ 25 MG/ML VIAL (J2550) IV ONE (12:00)
--- NOTE | 2020-04-09 13:34 | REP ---
INDICATION: vomiting COMPARISON: 09/08/2016 TECHNIQUE: Upright view of the chest with supine and upright views of the abdomen and pelvis. FINDINGS: Frontal upright view of the chest demonstrates no acute cardiopulmonary process or free air below the diaphragm to suspect pneumoperitoneum. Supine and upright views of the abdomen and pelvis demonstrate nonspecific bowel gas pattern without obstruction or perforation. No organomegaly. No abnormal calcifications-phleboliths noted in the pelvis. Skeletal structures normal for age. IMPRESSION: Nonspecific bowel gas pattern. <Electronically signed by Cyrus Adams > 04/09/20 [id number]
[2020-04-09] MEDS ORDERED: METOCLOPRAMIDE INJ 10MG/2ML VIAL (J2765 PER 1) IV ONE (13:45)
[2020-04-09] MEDS ORDERED: ZOFR4TAB16 PO (15:56)
[2020-04-09 15:59] VITALS: BP 145/81
== END 2020-04-09 17:18 | disposition home or self-care (01) ==
LOC: M ED 10:04 → EDBD 10:04 → M ED 17:18
DX: R11.2 Nausea with vomiting, unspecified (principal); R19.7 Diarrhea, unspecified; K27.9 Peptic ulcer, site unspecified, unspecified as acute or chronic, without hemorrhage or perforation; B19.20 Unspecified viral hepatitis C without hepatic coma; F17.200 Nicotine dependence, unspecified, uncomplicated; Z79.899 Other long term (current) drug therapy; F19.10 Other psychoactive substance abuse, uncomplicated
CPT/HCPCS: 74021; 80047; 80048; 80076; 83690; 85025; 96361; 96374; 96375; 99284; C9113; J1630; J2765

== ENCOUNTER → 2020-06-26 | Outpatient (REF) | payer OTHER ==
[~2020-06-26] MED LIST changes: +ZOFR4TAB16 PO
== END ==
LOC: M LAB REF 11:52
PROVIDERS: ATTEND Surgery
DX: U07.1 COVID-19 (principal)

== ENCOUNTER 2022-12-02 12:24 | Emergency (ER) | payer OTHER ==
[~2022-12-02] VITALS: Ht 177.8 cm; Wt 77.3 kg
[~2022-12-02 12:24] MED LIST changes: +OLAN1TAB16 PO; -OLAN5TAB PO; -PAXI20TA29 PO; +PAXI20TA30 PO
[2022-12-02] MEDS ORDERED: METHADONE PO (12:35)
[2022-12-02] MEDS ORDERED: clonazePAM 0.5 MG TAB PO ONE (13:05)
[2022-12-02] MEDS ORDERED: NS 1,000 ML IV ONE (13:05)
[2022-12-02 13:34] LABS: BASO % 0.2 % (0.0-1.0); HEMATOCRIT 40.1 % (42.0-52.0); LYMPH # 2.7 10^3/uL (1.5-5.0); LYMPH % 20.5 % (24.0-44.0); MEAN CORPUSCULAR HEMOGLOBIN 29.9 pg (27.0-33.0); MEAN CORPUSCULAR HGB CONC 34.9 g/dl (32.0-36.5); MEAN CORPUSCULAR VOLUME 85.5 fl (80.0-96.0); MONO # 1.3 10^3/uL (0.0-0.8); MONO % 9.9 % (2.0-8.0); NEUTROPHILS # 9.2 10^3/uL (1.5-8.5); NEUTROPHILS % 68.9 % (36.0-66.0); PLATELET COUNT, AUTOMATED 269 10^3/uL (150-450); RED BLOOD COUNT 4.69 10^6/uL (4.30-6.10); WHITE BLOOD COUNT 13.3 10^3/uL (4.0-10.0)
[2022-12-02 13:56] LABS: ETHYL ALCOHOL (ETHANOL) < 0.003 % (0.000-0.010)
[2022-12-02 13:58] LABS: ACETAMINOPHEN LEVEL < 2.0 UG/ML (10.0-20.0); ALBUMIN 3.8 G/DL (3.2-5.2); ALKALINE PHOSPHATASE 83 U/L (46-116); ALT/SGPT 19 U/L (7.0-40); AST/SGOT 26 U/L (<34); BILIRUBIN,DIRECT 0.3 MG/DL (<0.4); BILIRUBIN,TOTAL 0.5 MG/DL (0.3-1.2); BLOOD UREA NITROGEN 11 MG/DL (9-23); CALCIUM LEVEL 9.4 MG/DL (8.5-10.1); CARBON DIOXIDE LEVEL 27 MMOL/L (20-31); CHLORIDE LEVEL 99 MMOL/L (98-107); CREATININE FOR GFR 0.57 MG/DL (0.70-1.30); GLOMERULAR FILTRATION RATE > 60.0 (>60); GLUCOSE, FASTING 108 MG/DL (60-100); POTASSIUM SERUM 3.8 MMOL/L (3.5-5.1); SODIUM LEVEL 137 MMOL/L (136-145); TOTAL PROTEIN 6.6 G/DL (5.7-8.2)
[2022-12-02 13:59] LABS: THYROID STIMULATING HORMONE 1.176 uIU/ML (0.55-4.78)
[2022-12-02 14:40] VITALS: TEMP 97.3
[2022-12-02] MEDS ORDERED: CLON1TAB8 PO (15:05)
[2022-12-02] MEDS ORDERED: CLOZ200T4 PO (15:52)
[2022-12-02] MEDS ORDERED: CLOZ25TA6 PO (15:52)
[2022-12-02] MEDS ORDERED: HALD100I2 IM (15:57)
[2022-12-02] MEDS ORDERED: CLOZ100T5 PO (15:57)
[2022-12-02] MEDS ORDERED: HALOPERIDOL 5MG/ML 1ML VIAL IV ONE (16:00)
[2022-12-02] MEDS ORDERED: HALOPERIDOL DECANOATE 100 MG/ML 1ML VIAL IM ONE (16:00)
[2022-12-02] MEDS ORDERED: METH10CO PO (16:07)
[2022-12-02 16:30] VITALS: BP 116/81; O2SAT 95
[2022-12-02] MEDS ORDERED: HOME MED LIST COMPLETE! XX SCH (17:00)
== END 2022-12-02 16:35 | disposition home or self-care (01) ==
LOC: M ED 12:24
DX: F41.9 Anxiety disorder, unspecified (principal); R53.1 Weakness; F19.130 Other psychoactive substance abuse with withdrawal, uncomplicated; R56.9 Unspecified convulsions; B19.20 Unspecified viral hepatitis C without hepatic coma; Z79.899 Other long term (current) drug therapy
CPT/HCPCS: 80048; 80076; 80143; 82077; 82140; 84260; 84443; 85025; 93005; 93041; 94760; 96361; 96372; 96374; 99285; J1630; J1631

== ENCOUNTER 2022-12-04 11:47 | Inpatient (IN) | payer OTHER ==
[~2022-12-04] VITALS: Ht 177.8 cm; Wt 77.8 kg
[~2022-12-04 11:47] MED LIST changes: +CLON1TAB8 PO; +CLOZ100T5 PO; +CLOZ200T4 PO; +CLOZ25TA6 PO; +HALD100I2 IM; +METHADONE PO
[2022-12-04 12:13] LABS: VENOUS BASE EXCESS 0.1 (-2.0-2.0); VENOUS HCO3 25.8 MMOL/L (23.0-27.0); VENOUS O2 SATURATION 75.8 % (60.0-80.0); VENOUS PARTIAL PRESSURE CO2 45.7 mmHg (38.0-50.0); VENOUS PARTIAL PRESSURE O2 39.7 mmHg (30.0-50.0); VENOUS TOTAL CO2 27.2 MMOL/L (24.0-28.0)
[2022-12-04 12:17] LABS: BASO % 0.3 % (0.0-1.0); EOS % 0.3 % (0.0-3.0); HEMATOCRIT 43.5 % (42.0-52.0); HEMOGLOBIN 14.7 g/dl (13.5-17.5); LYMPH # 2.6 10^3/uL (1.5-5.0); LYMPH % 23.8 % (24.0-44.0); MEAN CORPUSCULAR HEMOGLOBIN 29.5 pg (27.0-33.0); MEAN CORPUSCULAR HGB CONC 33.8 g/dl (32.0-36.5); MEAN CORPUSCULAR VOLUME 87.3 fl (80.0-96.0); MONO # 0.9 10^3/uL (0.0-0.8); MONO % 8.3 % (2.0-8.0); NEUTROPHILS # 7.3 10^3/uL (1.5-8.5); NEUTROPHILS % 66.8 % (36.0-66.0); PLATELET COUNT, AUTOMATED 256 10^3/uL (150-450); RED BLOOD COUNT 4.98 10^6/uL (4.30-6.10); WHITE BLOOD COUNT 10.9 10^3/uL (4.0-10.0)
[2022-12-04] MEDS ORDERED: NS 1,000 ML IV ONE (12:35)
[2022-12-04 12:44] LABS: ETHYL ALCOHOL (ETHANOL) < 0.003 % (0.000-0.010)
[2022-12-04 12:45] LABS: ACETAMINOPHEN LEVEL < 2.0 UG/ML (10.0-20.0); OSMOLALITY SERUM 290 MOSM/KG (275-295)
[2022-12-04 12:46] LABS: ALBUMIN 3.7 G/DL (3.2-5.2); ALKALINE PHOSPHATASE 84 U/L (46-116); ALT/SGPT 20 U/L (7.0-40); AST/SGOT 20 U/L (<34); BILIRUBIN,DIRECT 0.3 MG/DL (<0.4); BILIRUBIN,TOTAL 0.6 MG/DL (0.3-1.2); BLOOD UREA NITROGEN 10 MG/DL (9-23); CALCIUM LEVEL 9.4 MG/DL (8.5-10.1); CARBON DIOXIDE LEVEL 27 MMOL/L (20-31); CHLORIDE LEVEL 101 MMOL/L (98-107); CREATININE FOR GFR 0.66 MG/DL (0.70-1.30); GLOMERULAR FILTRATION RATE > 60.0 (>60); GLUCOSE, FASTING 77 MG/DL (60-100); POTASSIUM SERUM 3.8 MMOL/L (3.5-5.1); SALICYLATE LEVEL < 3.0 MG/DL (<30); SODIUM LEVEL 139 MMOL/L (136-145); TOTAL PROTEIN 6.6 G/DL (5.7-8.2)
[2022-12-04 12:48] LABS: THYROID STIMULATING HORMONE 1.456 uIU/ML (0.55-4.78)
[2022-12-04 12:53] LABS: CPK CREATINE PHOSPHOKINASE 254 U/L (46-171)
[2022-12-04 13:07] LABS: AMPHETAMINES LEVEL URINE NEGATIVE (NEGATIVE)
[2022-12-04 13:08] LABS: BARBITURATES URINE NEGATIVE (NEGATIVE); BENZODIAZEPINES URINE NEGATIVE (NEGATIVE); COCAINE METABOLITE URINE NEGATIVE (NEGATIVE)
[2022-12-04 13:09] LABS: CANNABINOIDS URINE NEGATIVE (NEGATIVE); OPIATES URINE NEGATIVE (NEGATIVE); PHENCYCLIDINE URINE NEGATIVE (NEGATIVE)
[2022-12-04 13:10] LABS: METHADONE URINE POSITIVE (NEGATIVE)
[2022-12-04] MEDS ORDERED: METHADONE 10MG TAB PO ONE (17:55)
[2022-12-04] MEDS ORDERED: MED REC IN PROGRESS XX SCH (19:00)
[2022-12-04] MEDS ORDERED: LR 1,000 ML IV SCH (19:25)
[2022-12-04] MEDS ORDERED: [UNRECOGNIZED DRUG - CODE] IM (19:32)
[2022-12-04] MEDS ORDERED: HOME MED LIST COMPLETE! XX SCH (19:40)
[2022-12-04] MEDS ORDERED: LORazepam 2 MG/ML 1ML VIAL IV PRN (20:00)
[2022-12-04] MEDS: clonazePAM 1 MG TAB PO SCH (21:56)
[2022-12-04] MEDS: LR 1,000 ML IV SCH (21:56)
[2022-12-05 06:37] LABS: BASO % 0.3 % (0.0-1.0); EOS # 0.1 10^3/uL (0.0-0.5); EOS % 1.2 % (0.0-3.0); HEMATOCRIT 36.5 % (42.0-52.0); LYMPH # 2.8 10^3/uL (1.5-5.0); LYMPH % 32.6 % (24.0-44.0); MEAN CORPUSCULAR HEMOGLOBIN 29.6 pg (27.0-33.0); MEAN CORPUSCULAR VOLUME 87.1 fl (80.0-96.0); MONO # 0.8 10^3/uL (0.0-0.8); MONO % 9.6 % (2.0-8.0); NEUTROPHILS # 4.9 10^3/uL (1.5-8.5); NEUTROPHILS % 56.1 % (36.0-66.0); PLATELET COUNT, AUTOMATED 231 10^3/uL (150-450); RED BLOOD COUNT 4.19 10^6/uL (4.30-6.10); WHITE BLOOD COUNT 8.7 10^3/uL (4.0-10.0)
[2022-12-05 06:38] LABS: HEMOGLOBIN 12.4 g/dl (13.5-17.5)
[2022-12-05 06:56] LABS: BLOOD UREA NITROGEN 8 MG/DL (9-23); CALCIUM LEVEL 8.5 MG/DL (8.5-10.1); CARBON DIOXIDE LEVEL 26 MMOL/L (20-31); CHLORIDE LEVEL 102 MMOL/L (98-107); GLOMERULAR FILTRATION RATE > 60.0 (>60); GLUCOSE, FASTING 70 MG/DL (60-100); MAGNESIUM LEVEL 1.7 MG/DL (1.8-2.4); POTASSIUM SERUM 4.7 MMOL/L (3.5-5.1); SODIUM LEVEL 139 MMOL/L (136-145)
[2022-12-05] MEDS ORDERED: CLOZ100T5 PO (07:46)
[2022-12-05] MEDS ORDERED: CLON1TAB8 PO (07:46)
[2022-12-05] MEDS ORDERED: CLOZ25TA6 PO (07:46)
[2022-12-05] MEDS ORDERED: HOME MED LIST COMPLETE! XX SCH (07:50)
[2022-12-05] MEDS: LR 1,000 ML IV SCH ×2 (10:08→13:50)
[2022-12-05] MEDS ORDERED: METHADONE 10MG TAB PO ONE (15:40)
[2022-12-05] MEDS ORDERED: PILL CUTTER 1 EACH XX PRN (15:45)
[2022-12-05] MEDS: clonazePAM 1 MG TAB PO SCH (21:11)
[2022-12-06] MEDS: LR 1,000 ML IV SCH ×4 (00:30→23:49)
[2022-12-06] MEDS ORDERED: ACETAMINOPHEN 650MG SUPP As Ordered ONE (12:23)
[2022-12-06] MEDS ORDERED: ACETAMINOPHEN 650MG SUPP PR ONE (12:30)
[2022-12-06] MEDS ORDERED: ACETAMINOPHEN 325 MG TAB PO ONE (12:30)
[2022-12-06] MEDS ORDERED: MAG SULF 1GM/100ML (MAG RUN) 1 GM in IV 1 EA IV ONE (12:30)
[2022-12-06] MEDS ORDERED: METHADONE 10MG TAB PO ONE (19:45)
[2022-12-06] MEDS: METHADONE 10MG TAB PO SCH (20:35)
[2022-12-06] MEDS: clonazePAM 1 MG TAB PO SCH (21:30)
[2022-12-07] MEDS: LR 1,000 ML IV SCH ×2 (07:30→16:39)
[2022-12-07] MEDS ORDERED: NS 1,000 ML IV ONE (08:45)
[2022-12-07] MEDS: PALIPERIDONE 6MG ER TAB (INVEGA) PO SCH (10:12)
[2022-12-07] MEDS: METHADONE 10MG TAB PO SCH (10:12)
[2022-12-07] MEDS: ACETAMINOPHEN TAB 650MG DOSE (2X325MG) PO PRN (16:07)
[2022-12-08] MEDS: LR 1,000 ML IV SCH ×3 (00:39→18:44)
[2022-12-08] MEDS: clonazePAM 1 MG TAB PO SCH ×2 (00:39→19:47)
[2022-12-08 07:28] LABS: BASO % 0.3 % (0.0-1.0); EOS # 0.2 10^3/uL (0.0-0.5); EOS % 2.6 % (0.0-3.0); HEMATOCRIT 36.1 % (42.0-52.0); HEMOGLOBIN 11.9 g/dl (13.5-17.5); LYMPH # 2.6 10^3/uL (1.5-5.0); LYMPH % 29.5 % (24.0-44.0); MEAN CORPUSCULAR HEMOGLOBIN 29.6 pg (27.0-33.0); MEAN CORPUSCULAR VOLUME 89.8 fl (80.0-96.0); MONO # 0.9 10^3/uL (0.0-0.8); MONO % 9.8 % (2.0-8.0); NEUTROPHILS # 5.1 10^3/uL (1.5-8.5); NEUTROPHILS % 57.4 % (36.0-66.0); PLATELET COUNT, AUTOMATED 186 10^3/uL (150-450); RED BLOOD COUNT 4.02 10^6/uL (4.30-6.10); WHITE BLOOD COUNT 8.9 10^3/uL (4.0-10.0)
[2022-12-08 07:45] LABS: BLOOD UREA NITROGEN 5 MG/DL (9-23); CALCIUM LEVEL 8.5 MG/DL (8.5-10.1); CARBON DIOXIDE LEVEL 30 MMOL/L (20-31); CHLORIDE LEVEL 104 MMOL/L (98-107); CREATININE FOR GFR 0.51 MG/DL (0.70-1.30); GLOMERULAR FILTRATION RATE > 60.0 (>60); GLUCOSE, FASTING 123 MG/DL (60-100); MAGNESIUM LEVEL 1.6 MG/DL (1.8-2.4); POTASSIUM SERUM 4.2 MMOL/L (3.5-5.1); SODIUM LEVEL 140 MMOL/L (136-145)
[2022-12-08] MEDS ORDERED: TAMSULOSIN 0.4 MG CAP PO SCH (09:00)
[2022-12-08] MEDS: PALIPERIDONE 6MG ER TAB (INVEGA) PO SCH (11:16)
[2022-12-08] MEDS: METHADONE 10MG TAB PO SCH (11:16)
[2022-12-08] MEDS: MAGNESIUM OXIDE 400MG TAB (MAG-OX) PO SCH (11:17)
[2022-12-08] MEDS ORDERED: MAALOX 30 ML SUSP *UDC PO PRN (12:10)
[2022-12-08 14:10] VITALS: BP 107/82; TEMP 98.1; O2SAT 96
[2022-12-08] MEDS: ENOXAPARIN 40MG/0.4ML SYRINGE (J1650 PER 10MG) SC SCH (14:41)
[2022-12-08] MEDS: ACETAMINOPHEN TAB 650MG DOSE (2X325MG) PO PRN (14:42)
[2022-12-08] MEDS: MOM 30ML SUSPENSION UDC PO PRN (18:44)
[2022-12-08] MEDS: SENOKOT S TAB PO SCH (19:47)
[2022-12-08 21:18] VITALS: BP 108/82; TEMP 98.7; O2SAT 97
[2022-12-09] VITALS (10 sets, daily range): BP systolic 116–141; BP diastolic 78–92; TEMP 98.2–101.5; O2SAT 94–98
[2022-12-09] MEDS: LR 1,000 ML IV SCH ×3 (01:16→16:59)
[2022-12-09 06:12] LABS: BLOOD UREA NITROGEN 6 MG/DL (9-23); CALCIUM LEVEL 8.5 MG/DL (8.5-10.1); CARBON DIOXIDE LEVEL 31 MMOL/L (20-31); CHLORIDE LEVEL 103 MMOL/L (98-107); CREATININE FOR GFR 0.57 MG/DL (0.70-1.30); GLOMERULAR FILTRATION RATE > 60.0 (>60); GLUCOSE, FASTING 109 MG/DL (60-100); MAGNESIUM LEVEL 1.8 MG/DL (1.8-2.4); POTASSIUM SERUM 4.1 MMOL/L (3.5-5.1); SODIUM LEVEL 137 MMOL/L (136-145)
[2022-12-09] MEDS ORDERED: cloNIDine HCL 0.1 MG/24 HR PATCH TOP SCH (09:00)
[2022-12-09] MEDS: SENOKOT S TAB PO SCH ×2 (09:45→21:02)
[2022-12-09] MEDS: ENOXAPARIN 40MG/0.4ML SYRINGE (J1650 PER 10MG) SC SCH (09:46)
[2022-12-09] MEDS: METHADONE 10MG TAB PO SCH (09:46)
[2022-12-09] MEDS: MAGNESIUM OXIDE 400MG TAB (MAG-OX) PO SCH (09:46)
[2022-12-09] MEDS: PALIPERIDONE 6MG ER TAB (INVEGA) PO SCH (09:48)
[2022-12-09] MEDS: ACETAMINOPHEN TAB 650MG DOSE (2X325MG) PO PRN ×2 (13:19→21:58)
[2022-12-09] MEDS: tiZANidine 4 MG TAB PO PRN ×2 (13:39→21:02)
[2022-12-09 15:08] LABS: BASO % 0.2 % (0.0-1.0); EOS % 0.4 % (0.0-3.0); HEMATOCRIT 41.8 % (42.0-52.0); HEMOGLOBIN 13.8 g/dl (13.5-17.5); LYMPH # 0.9 10^3/uL (1.5-5.0); LYMPH % 8.6 % (24.0-44.0); MEAN CORPUSCULAR HEMOGLOBIN 29.6 pg (27.0-33.0); MEAN CORPUSCULAR VOLUME 89.5 fl (80.0-96.0); MONO # 1.2 10^3/uL (0.0-0.8); MONO % 11.7 % (2.0-8.0); NEUTROPHILS # 7.8 10^3/uL (1.5-8.5); NEUTROPHILS % 78.6 % (36.0-66.0); PLATELET COUNT, AUTOMATED 201 10^3/uL (150-450); RED BLOOD COUNT 4.67 10^6/uL (4.30-6.10); WHITE BLOOD COUNT 9.9 10^3/uL (4.0-10.0)
[2022-12-09] MEDS: IBUPROFEN 400MG TAB PO PRN (15:53)
[2022-12-09] MEDS: cloNIDine 0.1MG TABLET PO SCH (15:53)
[2022-12-09] MEDS: clonazePAM 1 MG TAB PO SCH (21:02)
[2022-12-10] MEDS: LR 1,000 ML IV SCH ×3 (01:02→20:32)
[2022-12-10 05:00] VITALS: BP 123/82; TEMP 101.2; O2SAT 92
[2022-12-10] MEDS: IBUPROFEN 400MG TAB PO PRN (05:49)
[2022-12-10 06:16] LABS: BLOOD UREA NITROGEN 7 MG/DL (9-23); CALCIUM LEVEL 8.5 MG/DL (8.5-10.1); CARBON DIOXIDE LEVEL 27 MMOL/L (20-31); CHLORIDE LEVEL 99 MMOL/L (98-107); CREATININE FOR GFR 0.59 MG/DL (0.70-1.30); GLOMERULAR FILTRATION RATE > 60.0 (>60); GLUCOSE, FASTING 113 MG/DL (60-100); MAGNESIUM LEVEL 1.7 MG/DL (1.8-2.4); POTASSIUM SERUM 4.3 MMOL/L (3.5-5.1); SODIUM LEVEL 134 MMOL/L (136-145)
[2022-12-10 07:50] VITALS: TEMP 98
[2022-12-10 08:49] LABS: C REACTIVE PROTEIN QUANTITATIV 15.6 MG/DL (<1.0)
[2022-12-10 08:56] LABS: PROCALCITONIN 1.17 ng/ml
[2022-12-10] MEDS ORDERED: MAG SULF 1GM/100ML (MAG RUN) 1 GM in IV 1 EA IV ONE (09:00)
[2022-12-10 09:20] VITALS: TEMP 98.1
[2022-12-10] MEDS: PALIPERIDONE 6MG ER TAB (INVEGA) PO SCH (09:29)
[2022-12-10] MEDS: cloNIDine 0.1MG TABLET PO SCH (09:29)
[2022-12-10] MEDS: MAGNESIUM OXIDE 400MG TAB (MAG-OX) PO SCH (09:29)
[2022-12-10] MEDS: ENOXAPARIN 40MG/0.4ML SYRINGE (J1650 PER 10MG) SC SCH (09:30)
[2022-12-10] MEDS: METHADONE 10MG TAB PO SCH (09:30)
[2022-12-10] MEDS: PIPERACILLIN/TAZOBACTAM SOD 4.5 GM in D5W MINI-BAG PLUS 50 ML IV SCH ×3 (09:30→20:29)
[2022-12-10] MEDS: SENOKOT S TAB PO SCH ×2 (09:31→20:29)
[2022-12-10 14:00] VITALS: BP 101/66; TEMP 98.7; O2SAT 94
[2022-12-10 16:17] LABS: ALBUMIN 2.5 G/DL (3.2-5.2); ALKALINE PHOSPHATASE 65 U/L (46-116); ALT/SGPT 12 U/L (7.0-40); AST/SGOT 13 U/L (<34); BILIRUBIN,DIRECT 0.4 MG/DL (<0.4); BILIRUBIN,TOTAL 0.7 MG/DL (0.3-1.2); TOTAL PROTEIN 5.3 G/DL (5.7-8.2)
[2022-12-10] MEDS: clonazePAM 1 MG TAB PO SCH (20:30)
[2022-12-10] MEDS: tiZANidine 4 MG TAB PO PRN (20:32)
[2022-12-10 22:00] VITALS: BP 116/88; TEMP 98.5; O2SAT 94
[2022-12-11] MEDS: PIPERACILLIN/TAZOBACTAM SOD 4.5 GM in D5W MINI-BAG PLUS 50 ML IV SCH ×4 (03:10→21:05)
[2022-12-11] MEDS: LR 1,000 ML IV SCH ×3 (04:04→21:05)
[2022-12-11 05:20] VITALS: BP 106/59; TEMP 98.7; O2SAT 93
[2022-12-11 06:23] LABS: BASO % 0.2 % (0.0-1.0); EOS # 0.2 10^3/uL (0.0-0.5); EOS % 2.2 % (0.0-3.0); HEMATOCRIT 33.6 % (42.0-52.0); LYMPH # 1.8 10^3/uL (1.5-5.0); LYMPH % 21.1 % (24.0-44.0); MEAN CORPUSCULAR HEMOGLOBIN 29.8 pg (27.0-33.0); MEAN CORPUSCULAR VOLUME 90.3 fl (80.0-96.0); MONO # 1.4 10^3/uL (0.0-0.8); MONO % 16.3 % (2.0-8.0); NEUTROPHILS % 59.6 % (36.0-66.0); PLATELET COUNT, AUTOMATED 149 10^3/uL (150-450); RED BLOOD COUNT 3.72 10^6/uL (4.30-6.10); WHITE BLOOD COUNT 8.3 10^3/uL (4.0-10.0)
[2022-12-11 06:24] LABS: HEMOGLOBIN 11.1 g/dl (13.5-17.5)
[2022-12-11 06:32] LABS: BLOOD UREA NITROGEN 7 MG/DL (9-23); CALCIUM LEVEL 8.6 MG/DL (8.5-10.1); CARBON DIOXIDE LEVEL 29 MMOL/L (20-31); CHLORIDE LEVEL 103 MMOL/L (98-107); CREATININE FOR GFR 0.64 MG/DL (0.70-1.30); GLOMERULAR FILTRATION RATE > 60.0 (>60); GLUCOSE, FASTING 103 MG/DL (60-100); POTASSIUM SERUM 4.1 MMOL/L (3.5-5.1); SODIUM LEVEL 138 MMOL/L (136-145)
[2022-12-11 06:57] LABS: HIV 1&2 SCREEN NEGATIVE (NEGATIVE)
[2022-12-11] MEDS: MAGNESIUM OXIDE 400MG TAB (MAG-OX) PO SCH (10:48)
[2022-12-11] MEDS: cloNIDine 0.1MG TABLET PO SCH (10:48)
[2022-12-11] MEDS: ENOXAPARIN 40MG/0.4ML SYRINGE (J1650 PER 10MG) SC SCH (10:49)
[2022-12-11] MEDS: METHADONE 10MG TAB PO SCH (10:49)
[2022-12-11] MEDS: SENOKOT S TAB PO SCH ×2 (10:49→21:05)
[2022-12-11] MEDS: PALIPERIDONE 6MG ER TAB (INVEGA) PO SCH (12:53)
[2022-12-11 14:00] VITALS: BP 128/79; TEMP 98.1; O2SAT 94
[2022-12-11 21:00] VITALS: BP 115/74; TEMP 97.7; O2SAT 93
[2022-12-11] MEDS: tiZANidine 4 MG TAB PO PRN (21:04)
[2022-12-11] MEDS: clonazePAM 1 MG TAB PO SCH (21:04)
[2022-12-12] MEDS: PIPERACILLIN/TAZOBACTAM SOD 4.5 GM in D5W MINI-BAG PLUS 50 ML IV SCH ×4 (03:21→21:03)
[2022-12-12 06:00] VITALS: BP 141/95; TEMP 97.9; O2SAT 92
[2022-12-12] MEDS: LR 1,000 ML IV SCH ×3 (06:12→16:55)
[2022-12-12 06:44] LABS: BASO % 0.3 % (0.0-1.0); EOS # 0.1 10^3/uL (0.0-0.5); EOS % 1.3 % (0.0-3.0); HEMATOCRIT 36.3 % (42.0-52.0); HEMOGLOBIN 12.1 g/dl (13.5-17.5); LYMPH # 1.6 10^3/uL (1.5-5.0); MEAN CORPUSCULAR HEMOGLOBIN 29.4 pg (27.0-33.0); MEAN CORPUSCULAR HGB CONC 33.3 g/dl (32.0-36.5); MEAN CORPUSCULAR VOLUME 88.1 fl (80.0-96.0); MONO # 0.9 10^3/uL (0.0-0.8); MONO % 12.2 % (2.0-8.0); NEUTROPHILS # 4.4 10^3/uL (1.5-8.5); NEUTROPHILS % 62.8 % (36.0-66.0); PLATELET COUNT, AUTOMATED 204 10^3/uL (150-450); RED BLOOD COUNT 4.12 10^6/uL (4.30-6.10)
[2022-12-12 07:05] LABS: BLOOD UREA NITROGEN 5 MG/DL (9-23); CALCIUM LEVEL 8.7 MG/DL (8.5-10.1); CARBON DIOXIDE LEVEL 25 MMOL/L (20-31); CHLORIDE LEVEL 106 MMOL/L (98-107); CREATININE FOR GFR 0.53 MG/DL (0.70-1.30); GLOMERULAR FILTRATION RATE > 60.0 (>60); GLUCOSE, FASTING 109 MG/DL (60-100); SODIUM LEVEL 140 MMOL/L (136-145)
[2022-12-12] MEDS: BACITRACIN OINTMENT 30GM TUBE TOP SCH ×2 (09:00→21:03)
[2022-12-12] MEDS: MAGNESIUM OXIDE 400MG TAB (MAG-OX) PO SCH (09:26)
[2022-12-12] MEDS: cloNIDine 0.1MG TABLET PO SCH (09:26)
[2022-12-12] MEDS: PALIPERIDONE 6MG ER TAB (INVEGA) PO SCH (09:27)
[2022-12-12] MEDS: SENOKOT S TAB PO SCH ×2 (09:27→21:02)
[2022-12-12] MEDS: ENOXAPARIN 40MG/0.4ML SYRINGE (J1650 PER 10MG) SC SCH (09:31)
[2022-12-12] MEDS: METHADONE 10MG TAB PO SCH (09:31)
[2022-12-12] MEDS: IBUPROFEN 400MG TAB PO PRN (11:23)
[2022-12-12 14:00] VITALS: BP 120/77; TEMP 97.7; O2SAT 95
[2022-12-12 15:09] LABS: HEPATITIS A IgG TOTAL Positive (Negative); HEPATITIS B CORE ANTIBODY IGG Negative (Negative); HEPATITIS C QUANTITATION HCV Not Detected IU/mL (.)
[2022-12-12] MEDS: clonazePAM 1 MG TAB PO SCH (21:02)
[2022-12-12] MEDS: tiZANidine 4 MG TAB PO PRN (21:02)
[2022-12-12 22:00] VITALS: BP 136/91; TEMP 98.3; O2SAT 94
[2022-12-13] MEDS: LR 1,000 ML IV SCH ×3 (03:26→21:39)
[2022-12-13] MEDS: PIPERACILLIN/TAZOBACTAM SOD 4.5 GM in D5W MINI-BAG PLUS 50 ML IV SCH ×2 (03:27→09:58)
[2022-12-13 06:00] VITALS: BP 131/95; TEMP 98.2; O2SAT 96
[2022-12-13 06:11] LABS: BASO % 0.3 % (0.0-1.0); EOS # 0.1 10^3/uL (0.0-0.5); HEMATOCRIT 38.1 % (42.0-52.0); HEMOGLOBIN 12.6 g/dl (13.5-17.5); LYMPH # 1.8 10^3/uL (1.5-5.0); MEAN CORPUSCULAR HGB CONC 33.1 g/dl (32.0-36.5); MEAN CORPUSCULAR VOLUME 87.6 fl (80.0-96.0); MONO # 0.6 10^3/uL (0.0-0.8); MONO % 9.9 % (2.0-8.0); NEUTROPHILS # 3.7 10^3/uL (1.5-8.5); NEUTROPHILS % 59.2 % (36.0-66.0); PLATELET COUNT, AUTOMATED 258 10^3/uL (150-450); RED BLOOD COUNT 4.35 10^6/uL (4.30-6.10); WHITE BLOOD COUNT 6.2 10^3/uL (4.0-10.0)
[2022-12-13 06:36] LABS: BLOOD UREA NITROGEN 5 MG/DL (9-23); CARBON DIOXIDE LEVEL 25 MMOL/L (20-31); CHLORIDE LEVEL 101 MMOL/L (98-107); CREATININE FOR GFR 0.55 MG/DL (0.70-1.30); GLOMERULAR FILTRATION RATE > 60.0 (>60); GLUCOSE, FASTING 116 MG/DL (60-100); POTASSIUM SERUM 3.9 MMOL/L (3.5-5.1); SODIUM LEVEL 136 MMOL/L (136-145)
[2022-12-13] MEDS ORDERED: VANCOMYCIN HCL 1,000 MG, VIAL MATE ADAPTER 1 EACH in D5W 250 ML IV SCH (07:30)
[2022-12-13 08:24] LABS: C REACTIVE PROTEIN QUANTITATIV 5.3 MG/DL (<1.0)
[2022-12-13] MEDS: MAGNESIUM OXIDE 400MG TAB (MAG-OX) PO SCH (09:00)
[2022-12-13] MEDS: BACITRACIN OINTMENT 30GM TUBE TOP SCH ×2 (09:00→21:14)
[2022-12-13 09:26] LABS: PROCALCITONIN 0.21 ng/ml
[2022-12-13] MEDS: ENOXAPARIN 40MG/0.4ML SYRINGE (J1650 PER 10MG) SC SCH (09:58)
[2022-12-13] MEDS ORDERED: VANCOMYCIN HCL 750 MG, VIAL MATE ADAPTER 1 EACH in D5W 250 ML IV ONE ×2 (10:00→11:00)
[2022-12-13] MEDS: METHADONE 10MG TAB PO SCH (10:00)
[2022-12-13] MEDS: SENOKOT S TAB PO SCH ×2 (10:01→21:14)
[2022-12-13] MEDS: IBUPROFEN 400MG TAB PO PRN (10:02)
[2022-12-13] MEDS: PALIPERIDONE 6MG ER TAB (INVEGA) PO SCH (10:02)
[2022-12-13] MEDS: cloNIDine 0.1MG TABLET PO SCH (10:06)
[2022-12-13] MEDS: LevoFLOXacin 750 MG TABLET PO SCH (12:16)
[2022-12-13] MEDS ORDERED: TAMSULOSIN 0.4 MG CAP PO ONE (17:35)
[2022-12-13 20:00] VITALS: BP 138/99; TEMP 98.8; O2SAT 95
[2022-12-13] MEDS ORDERED: TAMSULOSIN 0.4 MG CAP PO SCH (21:00)
[2022-12-13] MEDS: tiZANidine 4 MG TAB PO PRN (21:14)
[2022-12-13] MEDS: clonazePAM 1 MG TAB PO SCH (21:14)
[2022-12-14] MEDS: LevoFLOXacin 750 MG TABLET PO SCH (05:16)
[2022-12-14] MEDS: LR 1,000 ML IV SCH ×3 (05:54→21:44)
[2022-12-14 06:00] VITALS: BP 137/96; TEMP 98.4; O2SAT 93
[2022-12-14 06:29] LABS: BASO % 0.3 % (0.0-1.0); EOS % 0.6 % (0.0-3.0); HEMATOCRIT 38.7 % (42.0-52.0); HEMOGLOBIN 12.9 g/dl (13.5-17.5); LYMPH # 1.9 10^3/uL (1.5-5.0); MEAN CORPUSCULAR HEMOGLOBIN 28.9 pg (27.0-33.0); MEAN CORPUSCULAR HGB CONC 33.3 g/dl (32.0-36.5); MEAN CORPUSCULAR VOLUME 86.8 fl (80.0-96.0); MONO # 0.7 10^3/uL (0.0-0.8); NEUTROPHILS % 59.5 % (36.0-66.0); PLATELET COUNT, AUTOMATED 309 10^3/uL (150-450); RED BLOOD COUNT 4.46 10^6/uL (4.30-6.10); WHITE BLOOD COUNT 6.7 10^3/uL (4.0-10.0)
[2022-12-14 07:01] LABS: BLOOD UREA NITROGEN 6 MG/DL (9-23); CALCIUM LEVEL 9.3 MG/DL (8.5-10.1); CARBON DIOXIDE LEVEL 25 MMOL/L (20-31); CHLORIDE LEVEL 103 MMOL/L (98-107); CREATININE FOR GFR 0.52 MG/DL (0.70-1.30); GLOMERULAR FILTRATION RATE > 60.0 (>60); GLUCOSE, FASTING 116 MG/DL (60-100); POTASSIUM SERUM 4.1 MMOL/L (3.5-5.1); SODIUM LEVEL 138 MMOL/L (136-145)
[2022-12-14] MEDS: ENOXAPARIN 40MG/0.4ML SYRINGE (J1650 PER 10MG) SC SCH (09:44)
[2022-12-14] MEDS: MOM 30ML SUSPENSION UDC PO PRN (09:44)
[2022-12-14] MEDS: PALIPERIDONE 6MG ER TAB (INVEGA) PO SCH (09:45)
[2022-12-14] MEDS: METHADONE 10MG TAB PO SCH (09:45)
[2022-12-14] MEDS: MAGNESIUM OXIDE 400MG TAB (MAG-OX) PO SCH (09:47)
[2022-12-14] MEDS: cloNIDine 0.1MG TABLET PO SCH (09:47)
[2022-12-14] MEDS: SENOKOT S TAB PO SCH ×2 (09:47→21:43)
[2022-12-14] MEDS: BACITRACIN OINTMENT 30GM TUBE TOP SCH ×2 (09:49→21:43)
[2022-12-14 14:34] LABS: BLOOD UREA NITROGEN 6 MG/DL (9-23); CALCIUM LEVEL 9.5 MG/DL (8.5-10.1); CARBON DIOXIDE LEVEL 28 MMOL/L (20-31); CHLORIDE LEVEL 101 MMOL/L (98-107); CREATININE FOR GFR 0.54 MG/DL (0.70-1.30); GLOMERULAR FILTRATION RATE > 60.0 (>60); GLUCOSE, FASTING 108 MG/DL (60-100); POTASSIUM SERUM 4.2 MMOL/L (3.5-5.1); SODIUM LEVEL 137 MMOL/L (136-145)
[2022-12-14 16:59] VITALS: BP 143/98; TEMP 98.7; O2SAT 98
[2022-12-14 17:04] VITALS: BP 139/100
[2022-12-14] MEDS: clonazePAM 1 MG TAB PO SCH (21:42)
[2022-12-14] MEDS: TAMSULOSIN 0.4 MG CAP PO SCH (21:43)
[2022-12-14 22:00] VITALS: BP 150/99; TEMP 98.8; O2SAT 100
[2022-12-15] MEDS: LevoFLOXacin 750 MG TABLET PO SCH (05:55)
[2022-12-15] MEDS: LR 1,000 ML IV SCH ×3 (05:55→22:20)
[2022-12-15 06:00] VITALS: BP 135/97; TEMP 97.8; O2SAT 96
[2022-12-15 07:17] LABS: BASO % 0.5 % (0.0-1.0); EOS # 0.1 10^3/uL (0.0-0.5); EOS % 0.8 % (0.0-3.0); HEMATOCRIT 33.8 % (42.0-52.0); HEMOGLOBIN 11.1 g/dl (13.5-17.5); LYMPH # 3.2 10^3/uL (1.5-5.0); LYMPH % 37.7 % (24.0-44.0); MEAN CORPUSCULAR HEMOGLOBIN 29.1 pg (27.0-33.0); MEAN CORPUSCULAR HGB CONC 32.8 g/dl (32.0-36.5); MEAN CORPUSCULAR VOLUME 88.5 fl (80.0-96.0); MONO # 0.9 10^3/uL (0.0-0.8); MONO % 10.2 % (2.0-8.0); NEUTROPHILS # 4.2 10^3/uL (1.5-8.5); PLATELET COUNT, AUTOMATED 297 10^3/uL (150-450); RED BLOOD COUNT 3.82 10^6/uL (4.30-6.10); WHITE BLOOD COUNT 8.5 10^3/uL (4.0-10.0)
[2022-12-15 07:42] LABS: BLOOD UREA NITROGEN 8 MG/DL (9-23); CARBON DIOXIDE LEVEL 28 MMOL/L (20-31); CHLORIDE LEVEL 105 MMOL/L (98-107); CREATININE FOR GFR 0.64 MG/DL (0.70-1.30); GLOMERULAR FILTRATION RATE > 60.0 (>60); GLUCOSE, FASTING 93 MG/DL (60-100); SODIUM LEVEL 141 MMOL/L (136-145)
[2022-12-15] MEDS: BACITRACIN OINTMENT 30GM TUBE TOP SCH ×2 (09:00→21:00)
[2022-12-15] MEDS ORDERED: cloNIDine HCL 0.2 MG/24 HR PATCH TOP SCH (09:00)
[2022-12-15] MEDS ORDERED: LevoFLOXacin IV 750 MG in IV 1 EA IV ONE (10:15)
[2022-12-15] MEDS ORDERED: GLUCOSE 4GM CHEW TABLET PO PRN (10:20)
[2022-12-15] MEDS ORDERED: GLUCAGON INJ 1MG VIAL SC PRN (10:20)
[2022-12-15] MEDS ORDERED: DEXTROSE 50% 50ML SYRINGE IV PRN (10:20)
[2022-12-15] MEDS ORDERED: ISOVUE-370 76% 100ML VIAL As Ordered ONE (10:50)
[2022-12-15] MEDS ORDERED: METOPROLOL TART 12.5 MG PER 1/2 TAB PO SCH (12:00)
[2022-12-15] MEDS: METHADONE 10MG TAB PO SCH (13:39)
[2022-12-15] MEDS: MAGNESIUM OXIDE 400MG TAB (MAG-OX) PO SCH (13:40)
[2022-12-15] MEDS: FLUoxetine 10 MG CAP PO SCH (13:40)
[2022-12-15] MEDS: FINASTERIDE 5MG TAB PO SCH (13:40)
[2022-12-15] MEDS: PALIPERIDONE 6MG ER TAB (INVEGA) PO SCH (13:40)
[2022-12-15] MEDS: SENOKOT S TAB PO SCH ×2 (13:41→21:00)
[2022-12-15 14:27] VITALS: BP 137/97
[2022-12-15] MEDS: ENOXAPARIN 40MG/0.4ML SYRINGE (J1650 PER 10MG) SC SCH (14:28)
[2022-12-15 20:19] VITALS: BP 141/97; TEMP 99.5; O2SAT 96
[2022-12-15] MEDS: TAMSULOSIN 0.4 MG CAP PO SCH (21:00)
[2022-12-15] MEDS: clonazePAM 1 MG TAB PO SCH (21:00)
[2022-12-16] MEDS ORDERED: PANTOPRAZOLE 40MG VIAL IV ONE
[2022-12-16] MEDS: LevoFLOXacin 750 MG TABLET PO SCH (05:08)
[2022-12-16 05:52] VITALS: BP 140/90; TEMP 99.1; O2SAT 96
[2022-12-16] MEDS: LR 1,000 ML IV SCH (06:29)
[2022-12-16 06:31] LABS: BASO % 0.2 % (0.0-1.0); HEMATOCRIT 37.7 % (42.0-52.0); HEMOGLOBIN 12.4 g/dl (13.5-17.5); LYMPH % 13.7 % (24.0-44.0); MEAN CORPUSCULAR HGB CONC 32.9 g/dl (32.0-36.5); MEAN CORPUSCULAR VOLUME 88.1 fl (80.0-96.0); MONO # 0.8 10^3/uL (0.0-0.8); MONO % 5.4 % (2.0-8.0); NEUTROPHILS # 11.8 10^3/uL (1.5-8.5); NEUTROPHILS % 79.8 % (36.0-66.0); PLATELET COUNT, AUTOMATED 380 10^3/uL (150-450); RED BLOOD COUNT 4.28 10^6/uL (4.30-6.10); WHITE BLOOD COUNT 14.7 10^3/uL (4.0-10.0)
[2022-12-16 06:56] LABS: BLOOD UREA NITROGEN 7 MG/DL (9-23); CALCIUM LEVEL 9.2 MG/DL (8.5-10.1); CARBON DIOXIDE LEVEL 24 MMOL/L (20-31); CHLORIDE LEVEL 102 MMOL/L (98-107); CREATININE FOR GFR 0.67 MG/DL (0.70-1.30); GLOMERULAR FILTRATION RATE > 60.0 (>60); GLUCOSE, FASTING 101 MG/DL (60-100); SODIUM LEVEL 137 MMOL/L (136-145)
[2022-12-16] MEDS: METHADONE 10MG TAB PO SCH ×2 (08:29→14:51)
[2022-12-16] MEDS: PALIPERIDONE 6MG ER TAB (INVEGA) PO SCH ×2 (08:29→14:49)
[2022-12-16] MEDS: SENOKOT S TAB PO SCH ×2 (08:30→21:50)
[2022-12-16] MEDS: FINASTERIDE 5MG TAB PO SCH ×2 (08:30→14:49)
[2022-12-16] MEDS: FLUoxetine 10 MG CAP PO SCH ×2 (08:30→14:49)
[2022-12-16] MEDS: MAGNESIUM OXIDE 400MG TAB (MAG-OX) PO SCH ×2 (08:30→14:50)
[2022-12-16] MEDS: BACITRACIN OINTMENT 30GM TUBE TOP SCH ×3 (09:00→21:50)
[2022-12-16 09:05] LABS: PROCALCITONIN 0.08 ng/ml
[2022-12-16 09:31] LABS: ERYTHROCYTE SEDIMENTATION RATE 35 mm/hr (0-15)
[2022-12-16] MEDS ORDERED: VARIBAR NECTAR 40% w/v 240ML SUSP BTL As Ordered ONE (12:42)
[2022-12-16] MEDS ORDERED: VARIBAR PUDDING 40% w/v 230ML TUBE As Ordered ONE (12:42)
[2022-12-16] MEDS ORDERED: E-Z-PAQUE 96% w/w SUSP 176GM BTL As Ordered ONE (12:43)
[2022-12-16] MEDS ORDERED: BARIUM SULFATE 700 MG TABLET (E-Z-DISK) As Ordered ONE (12:43)
[2022-12-16 14:00] VITALS: BP 124/85; TEMP 98.8; O2SAT 97
[2022-12-16] MEDS: ENOXAPARIN 40MG/0.4ML SYRINGE (J1650 PER 10MG) SC SCH (14:50)
[2022-12-16] MEDS: TAMSULOSIN 0.4 MG CAP PO SCH (21:00)
[2022-12-16 21:08] VITALS: BP 128/86; TEMP 99; O2SAT 96
[2022-12-16] MEDS: clonazePAM 1 MG TAB PO SCH (21:50)
[2022-12-17] MEDS ORDERED: KETOROLAC 30 MG/ML 1ML VIAL IV ONE (04:30)
[2022-12-17 05:29] VITALS: BP 124/85; TEMP 98.8; O2SAT 94
[2022-12-17 06:23] LABS: BASO % 0.3 % (0.0-1.0); EOS % 0.2 % (0.0-3.0); HEMATOCRIT 36.3 % (42.0-52.0); HEMOGLOBIN 12.2 g/dl (13.5-17.5); LYMPH # 2.2 10^3/uL (1.5-5.0); LYMPH % 21.2 % (24.0-44.0); MEAN CORPUSCULAR HEMOGLOBIN 29.6 pg (27.0-33.0); MEAN CORPUSCULAR HGB CONC 33.6 g/dl (32.0-36.5); MEAN CORPUSCULAR VOLUME 88.1 fl (80.0-96.0); MONO # 0.7 10^3/uL (0.0-0.8); MONO % 6.8 % (2.0-8.0); NEUTROPHILS # 7.4 10^3/uL (1.5-8.5); NEUTROPHILS % 70.7 % (36.0-66.0); PLATELET COUNT, AUTOMATED 370 10^3/uL (150-450); RED BLOOD COUNT 4.12 10^6/uL (4.30-6.10); WHITE BLOOD COUNT 10.5 10^3/uL (4.0-10.0)
[2022-12-17 06:52] LABS: BLOOD UREA NITROGEN 11 MG/DL (9-23); CARBON DIOXIDE LEVEL 25 MMOL/L (20-31); CHLORIDE LEVEL 102 MMOL/L (98-107); CREATININE FOR GFR 0.64 MG/DL (0.70-1.30); GLOMERULAR FILTRATION RATE > 60.0 (>60); GLUCOSE, FASTING 101 MG/DL (60-100); POTASSIUM SERUM 3.7 MMOL/L (3.5-5.1); SODIUM LEVEL 138 MMOL/L (136-145)
[2022-12-17] MEDS: BACITRACIN OINTMENT 30GM TUBE TOP SCH (09:00)
[2022-12-17] MEDS: FLUoxetine 10 MG CAP PO SCH (09:46)
[2022-12-17] MEDS: SENOKOT S TAB PO SCH (09:46)
[2022-12-17] MEDS: MAGNESIUM OXIDE 400MG TAB (MAG-OX) PO SCH (09:46)
[2022-12-17] MEDS: PALIPERIDONE 6MG ER TAB (INVEGA) PO SCH (09:46)
[2022-12-17] MEDS: FINASTERIDE 5MG TAB PO SCH (09:47)
[2022-12-17] MEDS: ENOXAPARIN 40MG/0.4ML SYRINGE (J1650 PER 10MG) SC SCH (09:47)
[2022-12-17] MEDS: METHADONE 10MG TAB PO SCH (09:47)
[2022-12-17] MEDS ORDERED: FINA5TAB2 PO (11:00)
[2022-12-17] MEDS ORDERED: PALI1TAB3 PO (11:00)
[2022-12-17] MEDS ORDERED: FLOM0.4C39 PO (11:00)
[2022-12-17] MEDS ORDERED: MAGN400T2 PO (11:00)
[2022-12-17] MEDS ORDERED: FLUO10CA18 PO (11:00)
[2022-12-17] MEDS ORDERED: TIZA10TA PO (11:00)
[2022-12-17] MEDS ORDERED: CLON0.2D6 TOP (11:00)
[2022-12-17] MEDS ORDERED: BACI50OI TOP (11:00)
[2022-12-17] MEDS ORDERED: CLONI1TA PO (11:50)
== END 2022-12-17 12:22 | DRG 463 ==
LOC: EDBD 11:47 → M ED 11:47 → M ED INP 12-08 12:09 → ENRESERV 12-08 13:09 → M MSPAV 12-08 14:10 → OBSVTOIN 12-10 10:35
PROVIDERS: ADMIT Student in an Organized Health Care Education/Training Program; ATTEND Family Medicine
DX: N39.0 Urinary tract infection, site not specified (principal); A41.9 Sepsis, unspecified organism; F20.2 Catatonic schizophrenia; R13.10 Dysphagia, unspecified; R33.9 Retention of urine, unspecified; B19.20 Unspecified viral hepatitis C without hepatic coma; N13.2 Hydronephrosis with renal and ureteral calculous obstruction; Z79.899 Other long term (current) drug therapy; F17.200 Nicotine dependence, unspecified, uncomplicated

== ENCOUNTER 2022-12-19 15:10 | Emergency (ER) | payer OTHER ==
[~2022-12-19] VITALS: Ht 177.8 cm; Wt 60.0 kg
[~2022-12-19 15:10] MED LIST changes: +BACI50OI TOP; +CLON0.2D6 TOP; +CLONI1TA PO; +FINA5TAB2 PO; +FLOM0.4C39 PO; +FLUO10CA18 PO; +MAGN400T2 PO; +PALI1TAB3 PO; +TIZA10TA PO; +[UNRECOGNIZED DRUG - CODE] IM
[2022-12-19 15:53] LABS: BASO % 0.2 % (0.0-1.0); EOS % 0.1 % (0.0-3.0); HEMATOCRIT 38.4 % (42.0-52.0); HEMOGLOBIN 12.7 g/dl (13.5-17.5); LYMPH # 2.4 10^3/uL (1.5-5.0); LYMPH % 19.8 % (24.0-44.0); MEAN CORPUSCULAR HEMOGLOBIN 29.3 pg (27.0-33.0); MEAN CORPUSCULAR HGB CONC 33.1 g/dl (32.0-36.5); MEAN CORPUSCULAR VOLUME 88.7 fl (80.0-96.0); MONO # 0.9 10^3/uL (0.0-0.8); MONO % 7.6 % (2.0-8.0); NEUTROPHILS # 8.7 10^3/uL (1.5-8.5); NEUTROPHILS % 71.8 % (36.0-66.0); PLATELET COUNT, AUTOMATED 355 10^3/uL (150-450); RED BLOOD COUNT 4.33 10^6/uL (4.30-6.10); WHITE BLOOD COUNT 12.1 10^3/uL (4.0-10.0)
[2022-12-19 16:04] LABS: ETHYL ALCOHOL (ETHANOL) < 0.003 % (0.000-0.010)
[2022-12-19 16:05] LABS: SALICYLATE LEVEL < 3.0 MG/DL (<30)
[2022-12-19 16:06] LABS: ACETAMINOPHEN LEVEL < 2.0 UG/ML (10.0-20.0); ALBUMIN 3.2 G/DL (3.2-5.2); ALKALINE PHOSPHATASE 68 U/L (46-116); ALT/SGPT 37 U/L (7.0-40); AST/SGOT 24 U/L (<34); BILIRUBIN,DIRECT 0.3 MG/DL (<0.4); BILIRUBIN,TOTAL 0.5 MG/DL (0.3-1.2); BLOOD UREA NITROGEN 10 MG/DL (9-23); CALCIUM LEVEL 9.3 MG/DL (8.5-10.1); CARBON DIOXIDE LEVEL 29 MMOL/L (20-31); CHLORIDE LEVEL 102 MMOL/L (98-107); CREATININE FOR GFR 0.56 MG/DL (0.70-1.30); GLOMERULAR FILTRATION RATE > 60.0 (>60); GLUCOSE, FASTING 100 MG/DL (60-100); POTASSIUM SERUM 3.5 MMOL/L (3.5-5.1); SODIUM LEVEL 140 MMOL/L (136-145); TOTAL PROTEIN 6.2 G/DL (5.7-8.2)
[2022-12-19 16:08] LABS: OSMOLALITY SERUM 279 MOSM/KG (275-295); THYROID STIMULATING HORMONE 2.148 uIU/ML (0.55-4.78)
[2022-12-19 16:22] LABS: VENOUS BASE EXCESS 1.1 (-2.0-2.0); VENOUS HCO3 25.2 MMOL/L (23.0-27.0); VENOUS O2 SATURATION 97.7 % (60.0-80.0); VENOUS PARTIAL PRESSURE CO2 38.4 mmHg (38.0-50.0); VENOUS PH 7.435 UNITS (7.330-7.430); VENOUS STANDARD HCO3 25.5 MMOL/L; VENOUS TOTAL CO2 26.4 MMOL/L (24.0-28.0)
[2022-12-20] MEDS ORDERED: IPRATROPIUM 0.5MG/ALBUTEROL 2.5MG INH SOL UD 3ML (DUONEB) NEB ONE ×2 (03:10)
[2022-12-20] MEDS ORDERED: LIDOCAINE 2% 5ML JELLY UROJET TOP ONE (09:25)
[2022-12-20 11:30] LABS: AMPHETAMINES LEVEL URINE NEGATIVE (NEGATIVE)
[2022-12-20 11:31] LABS: BARBITURATES URINE NEGATIVE (NEGATIVE); BENZODIAZEPINES URINE NEGATIVE (NEGATIVE); PHENCYCLIDINE URINE NEGATIVE (NEGATIVE)
[2022-12-20 11:32] LABS: CANNABINOIDS URINE NEGATIVE (NEGATIVE); COCAINE METABOLITE URINE NEGATIVE (NEGATIVE); OPIATES URINE NEGATIVE (NEGATIVE)
[2022-12-20 11:37] LABS: METHADONE URINE POSITIVE (NEGATIVE)
[2022-12-20 15:31] VITALS: BP 146/90; O2SAT 95
[2022-12-20 15:32] VITALS: TEMP 98.4
== END 2022-12-20 15:43 | disposition home or self-care (01) ==
LOC: M ED 15:10
DX: R33.9 Retention of urine, unspecified (principal); Z76.5 Malingerer [conscious simulation]; F20.9 Schizophrenia, unspecified; G40.909 Epilepsy, unspecified, not intractable, without status epilepticus; F17.200 Nicotine dependence, unspecified, uncomplicated; Z79.2 Long term (current) use of antibiotics; Z79.899 Other long term (current) drug therapy